=== PATIENT | male | born 1965 | race Caucasian/White ===

== ENCOUNTER 2016-08-11 21:11 | Emergency (ER) | payer SELFPAY ==
[~2016-08-11] VITALS: Ht 165.1 cm; Wt 74.8 kg
[~2016-08-11 21:11] MED LIST: HYDR1TAB8 PO; SULF1TAB35 PO; SULF1TAB38 PO; TAMS0.4C98 PO
[2016-08-11] MEDS ORDERED: IBUPROFEN 800 MG (MOTRIN) TAB PO STA (21:45)
--- NOTE | 2016-08-11 21:46 | ED Upper Extremity ---
General Chief Complaint: Upper Extremity Stated Complaint: RT ARM,WRIST PAIN Nursing Triage Note: PT CO OF R ELBOW PAIN FROM MOVING GLASS DANYELLE. HAS HX OF FX ELBOW Nursing Sepsis Screen: No Definite Risk Source: patient Exam Limitations: no limitations History of Present Illness Time seen by provider: 21:35 Initial Comments 50-year-old male patient presents to the emergency department with complaints of right elbow pain. States this is been going on for the last couple of months. States he has had 9 previous elbow fractures when he was a child. States today he was moving a large piece of glass when the pain increased. Onset: other (onset of the last couple of months. Worse today.) Method of Injury: unknown Modifying Factors: Improves With Immobilization, Worse With Movement Allergies and Home Medications Allergies Coded Allergies: Penicillins (Verified Allergy, Intermediate, HIVES, 02/01/15) Home Medications Naproxen 500 Mg Tablet, 500 MG PO BID, #20 Ref 0 Prescribed by: REAL GREEN on 08/11/162222 Prednisone 20 Mg Tab, 40 MG PO DAILY, #10 Ref 0 Prescribed by: REAL GREEN on 08/11/163 Constitutional: no symptoms reported Musculoskeletal: see HPI, joint pain (right elbow), No joint swelling, No muscle cramps, No muscle twitching, No muscle weakness Skin: No change in color, No lumps Psychiatric/Neurological: Denies Numbness, Denies Paresthesia, Denies Tingling , Denies Weakness All Other Systems Reviewed Negative Unless Noted: Yes (Negative excepted noted.) Past Urzwdqc-Tfafud-Hgprom Hx Patient Social History Alcohol Use: Denies Use Recreational Drug Use: No Recent Foreign Travel: No Contact w/Someone Who Travel: No Recent Infectious Disease Expo: No Recent Hopitalizations: No Surgeries HX Surgeries: Yes (TUMOR REMOVAL TO FACE) Respiratory Hx Respiratory Disorders: No Cardiovascular Hx Cardiac Disorders: No Neurological Hx Neurological Disorders: No Genitourinary Hx Genitourinary Disorders: No Gastrointestinal Hx Gastrointestinal Disorders: No Musculoskeletal Hx Musculoskeletal Disorders: No Endocrine Hx Endocrine Disorders: No HEENT HX ENT Disorders: No Cancer Hx Cancer: No Psychosocial Hx Psychiatric Problems: No Integumentary HX Skin/Integumentary Disorder: No Blood Transfusions Hx Blood Disorders: No Reviewed Nursing Assessment Reviewed/Agree w Nursing PMH: Yes Family Medical History Significant Family History: No Pertinent Family Hx Physical Exam Vital Signs Vital Sign - Last 12Hours 4/18/17 21:25 Temp 99.2 Pulse 75 Resp 18 B/P (MAP) 121/86 Pulse Ox 95 Capillary Refill : Less Than 3 Seconds General Appearance: WD/WN, no apparent distress Cardiovascular: normal peripheral pulses, regular rate, rhythm, no murmur Respiratory: lungs clear, normal breath sounds, no respiratory distress Shoulder: normal inspection, non-tender, no evidence of injury, normal ROM Elbow/Forearm: normal ROM, Right, bone tenderness, pain, soft tissue tenderness (greatest tenderness noted on the lateral epicondyle with minimal swelling.), swelling (right lateral epicondyle) Wrist: Yes normal inspection, Yes non-tender, Yes no evidence of injury, Yes normal ROM Hand: normal inspection, non-tender, no evidence of injury, normal ROM, Right Neurologic/Tendon: normal sensation, normal motor functions, normal tendon functions, responds to pain, no evidence tendon injury Neurologic/Psychiatric: no motor/sensory deficits, alert, normal mood/affect, oriented x 3 Skin: normal color, warm/dry Progress/Results/Core Measures Results/Orders My Orders Orders - REAL GREEN Elbow, Right, 3 Views (08/11/16 21:45) Ibuprofen Tablet (Motrin Tablet) (08/11/16 21:45) Vital Signs/I&O Blood Pressure Mean: 98 Diagnostic Imaging Diagonstic Imaging: Xray Plain Films/CT/US/NM/MRI: elbow Comments Chronic degenerative changes without evidence of acute bony abnormality. Reviewed: Reviewed/Discussed (with Stiven Novak MD) Departure Communication Progress Notes Diagnostic findings discussed with the patient. Proceed with discharge to home with prednisone and naproxen. Impression Impression: Primary Impression: Tendonitis of elbow, left Disposition: 01 HOME, SELF-CARE Condition: Improved Departure-Patient Inst. Decision time for Depature: 22:22 Referrals: [facility] (PCP/Family) Primary Care Physician Patient Instructions: Tendonitis (DC) Add. Discharge Instructions: All discharge instructions reviewed with patient and/or family. Voiced understanding. Medications as instructed. Tylenol Extra Strength [id number] as directed for pain. Elevate the right elbow on pillows. Ice pack or heating pad as needed for pain. Avoid repetitive motions and heavy lifting with the right elbow 5-7 days. Increase activity slowly as tolerated. Follow-up with your family practitioner if no improvement in symptoms in 7-10 days. Return to the emergency department for worsened symptoms or any other concerns. Scripts Naproxen (Naprosyn) 500 Mg Tablet 500 MG PO BID, #20 TAB 0 Refills Prov: REAL GREEN 08/11/16 Prednisone (Prednisone) 20 Mg Tab 40 MG PO DAILY, #10 TAB 0 Refills Prov: REAL GREEN 08/11/16 Work/School Note: Work Release Form Date Seen in the Emergency Department: Aug 11, 2016 Return to Work: Aug 11, 2016 Other Restrictions Listed Below: no heavy lifting or repetitive motions with the right elbow 5-7 days. REAL GREEN Aug 11, 2016 21:46
[2016-08-11] MEDS ORDERED: PRD20T PO (22:23)
[2016-08-11] MEDS ORDERED: NAPR500T PO (22:23)
[2016-08-11 22:31] VITALS: BP 121/86
--- NOTE | 2016-08-12 07:51 | Diagnostic Imaging Report ---
INDICATION: Right elbow pain x1 week. FINDINGS: No fractures are demonstrated. Hypertrophic changes are noted along the radial head as well as along the lateral epicondylar soft tissues. There also appears to be some hypertrophic bony change anteriorly along the olecranon process. No joint effusion demonstrated. 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 Dictated by: Dictated on workstation # [id number]
== END 2016-08-11 22:32 | disposition home or self-care (01) ==
LOC: EDUNIT# 21:11 → ER 21:13
DX: M77.8 Other enthesopathies, not elsewhere classified (principal)
CPT/HCPCS: 73080; 99282

== ENCOUNTER 2017-05-04 12:30 | Emergency (ER) | payer SELFPAY ==
[~2017-05-04] VITALS: Ht 165.1 cm; Wt 74.8 kg
[~2017-05-04 12:30] MED LIST changes: +NAPR-1071 PO; +PRD20T PO
--- NOTE | 2017-05-04 14:33 | ED Cough/URI ---
General Chief Complaint: Cough/Cold/Flu Symptoms Stated Complaint: N/V/D/FEVER Nursing Triage Note: MULTIPLE C/O. STARTED LAST WEDNESDAY.C/O FLU LIKE SXS, WITH DIZZINESS ET H/A. ALSO STATED HE GOT BLOOD ON Q-TIP FROM L-EAR. STATES HE ALSO HAS H/A. HAS BEEN ABLE TO EAT ET DRINK. Source: patient Exam Limitations: no limitations History of Present Illness Time seen by provider: 14:15 Initial Comments Here with report of cough, congestion and left ear pain it's been going on since last Wednesday. 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 Does have moderate nasal congestion and a little bit of a sore throat as well as cough. Main complaint is the left ear at this point. Denies current fevers. Timing/Duration: other (4 days) Severity/Quality: moderate, dry cough Prior Episodes/Possible Cause: occasional episodes Modifying Factors: Worse With Activity Associated Symptoms: cough, earache, fever/chills, muscle aches, nasal congestion, nasal drainage, sore throat Allergies and Home Medications Allergies Coded Allergies: Penicillins (Verified Allergy, Intermediate, HIVES, 02/01/15) Home Medications Naproxen 500 Mg Tablet, 500 MG PO BID, #20 Ref 0 Prescribed by: REAL GREEN on 08/11/162222 Prednisone 20 Mg Tab, 40 MG PO DAILY, #10 Ref 0 Prescribed by: REAL GREEN on 08/11/162222 Constitutional: see HPI, No chills, No fever EENTM: ear pain, nose congestion Respiratory: cough, short of breath Cardiovascular: no symptoms reported Gastrointestinal: no symptoms reported Genitourinary: no symptoms reported Skin: no symptoms reported Past Enezapu-Nmcury-Ovhtvy Hx Patient Social History Alcohol Use: Denies Use Recreational Drug Use: No Smoking Status: Current Everyday Smoker Type Used: Cigarettes Recent Foreign Travel: No Contact w/Someone Who Travel: No Recent Infectious Disease Expo: No Recent Hopitalizations: No Surgeries History of Surgeries: Yes (TUMOR REMOVAL TO FACE) Respiratory History of Respiratory Disorde: No Cardiovascular History of Cardiac Disorders: No Neurological History of Neurological Disord: No Gastrointestinal History of Gastrointestinal Di: No Musculoskeletal History of Musculoskeletal Dis: No Endocrine History of Endocrine Disorders: No Cancer History of Cancer: No Psychosocial History of Psychiatric Problem: No Integumentary History of Skin or Integumenta: No Blood Transfusions History of Blood Disorders: No Reviewed Nursing Assessment Reviewed/Agree w Nursing PMH: Yes Family Medical History Significant Family History: No Pertinent Family Hx Physical Exam Vital Signs Vital Sign - Last 12Hours 05/04/17 13:18 Temp 98.9 Pulse 87 Resp 18 B/P (MAP) 108/78 (88) Capillary Refill : Less Than 3 Seconds General Appearance: WD/WN, no apparent distress HEENT: PERRL/EOMI, pharyngeal erythema, other (bilateral TMs bulging without purulence. Moderate nasal congestion bilateral with moderate rhinorrhea and moderate erythema.) Neck: full range of motion, supple Respiratory: lungs clear, normal breath sounds Cardiovascular: regular rate, rhythm, no murmur Gastrointestinal: non tender, soft Neurologic/Psychiatric: alert, oriented x 3 Skin: normal color, warm/dry Progress/Results/Core Measures Suspected Sepsis Recent Fever Within 48 Hours: Yes Infection Criteria Present: Suspected New Infection New/Unexplained Altered Menta: No Sepsis Screen: No Definite Risk Sepsis Diagnosis: SIRS Temperature:98.9 Pulse: 87 Respiratory Rate: 18 Blood Pressure 108 /78 Mean: 88 Results/Orders Vital Signs/I&O Vital Sign - Last 12Hours 05/04/17 13:18 Temp 98.9 Pulse 87 Resp 18 B/P (MAP) 108/78 (88) Capillary Refill : Less Than 3 Seconds Blood Pressure Mean: 88 Progress Note : Progress Note Seen and evaluated. Likely influenza. Patient is outside of Tamiflu window. Also has reactive airway and would probably benefit from steroids. Discharged home with return precautions. Patient verbalize understanding instructions and agreement with plan. He has declined injectable steroids here. Departure Impression Impression: Primary Impression: Influenza-like symptoms Disposition: 01 HOME, SELF-CARE Condition: Stable Departure-Patient Inst. Decision time for Depature: 14:32 Referrals: NO,LOCAL PHYSICIAN (PCP/Family) Primary Care Physician Patient Instructions: Flu, Adult (DC), Viral Upper Respiratory Infection, Adult (DC) Add. Discharge Instructions: All discharge instructions reviewed with patient and/or family. Voiced understanding. You may take Aleve 2 tablets twice daily for the next several days and then as needed. You may take Tylenol 1000 mg every 8 hours as needed for pain. You should use Afrin nasal spray or the generic, 12 hour relief, 2 sprays to each nostril twice daily for 3 days only and then stop. Do not use more than 3 days. Take other medications as directed. Return for worse pain, fever, vomiting, weakness, breathing problems or other concerns as needed. You should drink plenty of fluids and get plenty of rest. Follow up with your Dr. in a few days for recheck. Scripts Prednisone (Prednisone) 20 Mg Tab 40 MG PO DAILY, #6 TAB 0 Refills Prov: FREDY MONTIEL MD 05/04/17 FREDY MONTIEL MD May 04, 2017 14:33
[2017-05-04] MEDS ORDERED: PRD20T PO (14:34)
[2017-05-04 14:42] VITALS: BP 108/78
--- OUTSIDE RECORDS SUMMARY | 2017-05-05 10:29 | XMS REPORT | Continuity of Care Document ---
Author Author [facility] Organization [facility] Address Unknown Phone Unavailable Allergies Active Description Code Type Severity Reaction Onset Reported/Identified Relationship to Patient Clinical Status Yes No Known Drug Allergies [id number] Drug Allergy Unknown N/A 02/04/2011 Yes Penicillins [id number] Drug Allergy Moderate HIVES 02/01/2015 Medications There is no data. Problems Date Dx Coded Attending Type Code Diagnosis Diagnosed By 02/04/2011 Ot 682.3 02/04/2011 Ot 709.9 01/31/2015 VIDAL CHANCE DO Ot N20.1 01/31/2015 VIDAL CHANCE DO Ot R10.32 08/12/2016 REAL ARCE Ot M77.8 OTHER ENTHESOPATHIES, NOT ELSEWHERE CLAS 08/12/2016 REAL ARCE Ot M79.631 PAIN IN RIGHT FOREARM 08/12/2016 REAL ARCE Ot M77.8 OTHER ENTHESOPATHIES, NOT ELSEWHERE CLAS 08/12/2016 REAL ARCE Ot M79.631 PAIN IN RIGHT FOREARM 09/26/2016 REAL ARCE Ot M77.8 OTHER ENTHESOPATHIES, NOT ELSEWHERE CLAS 09/26/2016 REAL ARCE Ot M79.631 PAIN IN RIGHT FOREARM Procedures There is no data. Results There is no data. Encounters ACCT No. Visit Date/Time Discharge Status Pt. Type Provider Facility Loc./Unit Complaint [id number] 08/11/2016 21:13:00 08/11/2016 22:32:00 DIS Outpatient REAL ARCE [facility] ER RT ARM,WRIST PAIN [id number] 01/31/2015 21:54:00 01/31/2015 23:52:00 DIS Emergency VIDAL CHANCE DO [facility] ER [id number] 02/04/2011 21:21:00 Document Registration
== END 2017-05-04 14:42 | disposition home or self-care (01) ==
LOC: EDUNIT# 12:30 → ER 12:33
DX: J11.1 Influenza due to unidentified influenza virus with other respiratory manifestations (principal); F17.210 Nicotine dependence, cigarettes, uncomplicated
CPT/HCPCS: 99282

== ENCOUNTER 2018-08-10 11:42 | Emergency (ER) | payer SELFPAY ==
[~2018-08-10] VITALS: Ht 167.6 cm; Wt 74.8 kg
--- NOTE | 2018-08-10 11:55 | ED Back Pain ---
General Chief Complaint: Back Problems Stated Complaint: BACK PAIN Source of Information: Patient Exam Limitations: No Limitations History of Present Illness Date Seen by Provider: Aug 10, 2018 Time Seen by Provider: 11:52 Initial Comments Ambulatory to the emergency room with reports of midline low back pain worse than usual and tingling down both of his legs. No loss of bowel or bladder control, no fevers or chills, no loss of sensation of his genitals. He has a history of some chronic back pain and normally goes to [facility]. However , he fell off of his porch yesterday landing directly on his buttocks. Since then he's had this worsening pain and tingling. He also has some new tingling in both of his hands the fall yesterday but denies hitting his head and denies any neck pain. Location: Lumbar Spine, Paraspinous Muscles Timing/Duration: 24 Hours Severity: Moderate Pain/Injury Location: Back Radiation: Upper Legs Method of Injury: Fall (chronic pain exacerbated by fall yesterday) Modifying Factors: Improves With Movement Associated Symptoms: No denies symptoms, No muscle spasms, No numbness in legs/ feet; tingling in legs/feet; No sensory/motor loss; lower back pain; No loss of bladder control, No loss of bowel control Allergies and Home Medications Allergies Coded Allergies: Penicillins (Verified Allergy, Intermediate, HIVES, 02/01/15) Home Medications Naproxen 500 Mg Tablet, 500 MG PO BID Prescribed by: REAL GREEN on 08/11/162222 Prednisone 20 Mg Tab, 40 MG PO DAILY Prescribed by: REAL GREEN on 08/11/162222 Prednisone 20 Mg Tab, 40 MG PO DAILY Prescribed by: FREDY MNOTIEL on 05/04/17 1434 Patient Home Medication List Home Medication List Reviewed: Yes Review of Systems Constitutional: see HPI EENTM: see HPI Respiratory: no symptoms reported Cardiovascular: no symptoms reported Genitourinary: no symptoms reported Musculoskeletal: see HPI, back pain Skin: no symptoms reported Psychiatric/Neurological: No Symptoms Reported Past Jpciswh-Vvowsp-Famxod Hx Patient Social History Type Used: Cigarettes Recent Foreign Travel: No Contact w/Someone Who Travel: No Recent Hopitalizations: No Past Medical History Surgeries: Yes (TUMOR REMOVAL TO FACE) Respiratory: No Cardiac: No Neurological: No Gastrointestinal: No Musculoskeletal: No Endocrine: No Cancer: No Psychosocial: No Integumentary: No Blood Disorders: No Family Medical History No Pertinent Family Hx Physical Exam Vital Signs Vital Signs - First Documented 08/10/18 11:46 Temp 97.8 Pulse 88 Resp 18 B/P (MAP) 124/92 (103) Pulse Ox 99 Capillary Refill : Height, Weight, BMI Height: 5'5.00" Weight: 165lbs. oz. 74.117942sg; 28.24 BMI Method:Stated General Appearance: No Apparent Distress, WD/WN, Chronically ill Respiratory: No Accessory Muscle Use, No Respiratory Distress Gastrointestinal: Non Tender, Soft Extremity: Normal Capillary Refill, Normal Inspection Neurologic/Psychiatric: Alert, Oriented x3 Skin: Normal Color, Warm/Dry Progress/Results/Core Measures Results/Orders My Orders Orders - BRIDGET FALLON APRN Ct Cervical Spine Wo (08/10/18 11:51) Ct Lumbar Spine Wo (08/10/18 11:51) Ketorolac Injection (Toradol Injection) (08/10/18 12:00) Orphenadrine Injection (Norflex Injectio (08/10/18 12:00) Hydrocodone/Apap 5/325 Tablet (Lortab 5 (08/10/18 12:00) Medications Given in ED Current Medications Medications Dose Ordered Sig/Thai Route Start Time Stop Time Status Last Admin Dose Admin Acetaminophen/ Hydrocodone Bitart 1 tab ONCE ONCE PO 08/10/18 12:00 08/10/18 12:01 DC 08/10/18 12:03 1 TAB Ketorolac Tromethamine 60 mg ONCE ONCE IM 08/10/18 12:00 08/10/18 12:01 DC 08/10/18 12:02 60 MG Vital Signs/I&O 08/10/18 11:46 Temp 97.8 Pulse 88 Resp 18 B/P (MAP) 124/92 (103) Pulse Ox 99 Departure Impression Primary Impression: Acute exacerbation of chronic low back pain Disposition: 01 HOME, SELF-CARE Condition: Stable Departure-Patient Inst. Decision time for Depature: 13:33 Referrals: NO,LOCAL PHYSICIAN (PCP/Family) Primary Care Physician Patient Instructions: Low Back Pain in Adults Add. Discharge Instructions: 1. Follow-up with your regular doctor to discuss an MRI and further evaluation of your symptoms. Call and make an appointment next week. Take the medication as directed. Return to ER for any concerns. All discharge instructions reviewed with patient and/or family. Voiced understanding. Scripts Methocarbamol (Robaxin-750) 750 Mg Tablet 750 MG PO Q4H PRN for PAIN-MODERATE, #20 TAB Prov: BRIDGET FALLON APRN 08/10/18 Prednisone (Prednisone) 20 Mg Tab 40 MG PO DAILY, #8 TAB Prov: BRIDGET FALLON APRN 08/10/18 BRIDGET FALLON APRN Aug 10, 2018 11:55
[2018-08-10] MEDS ORDERED: KETOROLAC 60 MG/2 ML VIAL IM ONE (12:00)
[2018-08-10] MEDS ORDERED: ORPHENADRINE 60 MG/2 ML (NORFLEX) AMP IM ONE (12:00)
[2018-08-10] MEDS ORDERED: HYDROcodone/APAP 5 MG/325 MG (LORTAB) TAB PO ONE (12:00)
--- NOTE | 2018-08-10 13:23 | Diagnostic Imaging Report ---
PROCEDURE: CT cervical spine without contrast. TECHNIQUE: Multiple contiguous axial images were obtained through the cervical spine without the use of intravenous contrast. Sagittal and coronal reformations were then performed. Auto Exposure Controls were utilized during the CT exam to meet ALARA standards for radiation dose reduction. INDICATION: Fall and neck pain. FINDINGS: Curvature and alignment of the cervical spine is normal. No fracture or subluxation is seen. Prevertebral tissues are within normal limits. Odontoid is intact. There is generalized cervical spondylosis with variable disc space narrowing and marginal spurring. IMPRESSION: Cervical spondylosis. No acute bony abnormality is detected. Dictated by: Dictated on workstation # [id number]
--- NOTE | 2018-08-10 13:31 | Diagnostic Imaging Report ---
PROCEDURE: CT lumbar spine without contrast. TECHNIQUE: Multiple contiguous axial images were obtained through the lumbar spine without the use of intravenous contrast. Sagittal and coronal reformations were then performed. Auto Exposure Controls were utilized during the CT exam to meet ALARA standards for radiation dose reduction. INDICATION: Fall and low back pain. FINDINGS: The curvature and alignment of the lumbar spine are normal. The vertebral body heights are maintained. No acute compression fracture is detected. There is multilevel degenerative disc disease with variable disc space narrowing and marginal spurring. The paraspinous tissues are unremarkable. IMPRESSION: Lumbar spondylosis. No acute bony abnormality is detected. Dictated by: Dictated on workstation # [id number]
[2018-08-10] MEDS ORDERED: PRD20T PO (13:34)
[2018-08-10] MEDS ORDERED: METH-313 PO (13:34)
[2018-08-10 13:42] VITALS: BP 124/92
== END 2018-08-10 13:46 | disposition home or self-care (01) ==
LOC: EDUNIT# 11:42 → ER 11:43
DX: M54.5 Low back pain (principal); G89.29 Other chronic pain; Z88.0 Allergy status to penicillin; Z79.52 Long term (current) use of systemic steroids; W13.8XXA Fall from, out of or through other building or structure, initial encounter
CPT/HCPCS: 72125; 72131

== ENCOUNTER → 2018-11-01 | Outpatient (CLI) | payer OTHER ==
[~2018-11-01] MED LIST changes: +HOLD METFORMIN - RECEIVED CONTRAST 20 ML VIAL IV SCH; +IOHEXOL 350 MG/ML 100 ML (OMNIPAQUE 350) VIAL IV ONE; +METH-313 PO; +NS 100 ML (IVPB) BAG IV ONE
--- NOTE | 2018-11-01 12:09 | Diagnostic Imaging Report ---
PROCEDURE: CT abdomen with contrast only. TECHNIQUE: Multiple contiguous axial images were obtained through the abdomen after the administration of intravenous contrast. Auto Exposure Controls were utilized during the CT exam to meet ALARA standards for radiation dose reduction. INDICATION: Jaundice. COMPARISON: Comparison is to 01/31/2015. FINDINGS: Limited views of the lower thorax are normal. There is moderate to severe intrahepatic biliary ductal dilation. In addition, the common duct is significantly dilated. The point of transition is in the distal common bile duct. At the point of transition there is a 1.8 x 2.0 cm hypoattenuating focus on the pancreatic head (series 2, image 36 and series 601, image 24). There is no significant pancreatic atrophy or dilation of the pancreatic duct. Although the main pancreatic duct is mildly prominent and the neck of the pancreas. This lesion is contained within the pancreatic head and does not involve the celiac artery, superior mesenteric artery, hepatic arteries or aorta. There is no peripancreatic lymphadenopathy. Spleen and adrenal glands are normal. Kidneys enhance symmetrically without focal lesion. No hydronephrosis. No dilated loops of bowel are seen. There are no suspicious osseous lesions. IMPRESSION: 1. Hypoattenuating lesion in the head of the pancreas with obstruction of the distal common bile duct. This is highly concerning for a pancreatic adenocarcinoma. 2. No evidence for metastatic disease in the abdomen. Dictated by: Dictated on workstation # [id number]
== END ==
LOC: RAD 08:27
PROVIDERS: ATTEND Pediatrics
DX: K83.1 Obstruction of bile duct (principal); K86.89 Other specified diseases of pancreas
CPT/HCPCS: 74160

== ENCOUNTER 2019-02-01 09:17 | Outpatient (RCR) | payer OTHER ==
[2019-01-23 11:04] LABS: BASOPHILS # (AUTO) 0.1 10^3/uL (0.0-0.1); BASOPHILS % (AUTO) 1 % (0-10); EOSINOPHILS # (AUTO) 0.3 10^3/uL (0.0-0.3); EOSINOPHILS % (AUTO) 3 % (0-10); HEMATOCRIT 43 % (40-54); HEMOGLOBIN 13.3 G/DL (13.3-17.7); LYMPHOCYTES # (AUTO) 1.6 X 10^3 (1.0-4.0); LYMPHOCYTES % (AUTO) 15 % (12-44); MEAN CORPUSCULAR HEMOGLOBIN 27 PG (25-34); MEAN CORPUSCULAR HGB CONC 31 G/DL (32-36); MEAN CORPUSCULAR VOLUME 89 FL (80-99); MEAN PLATELET VOLUME 10.4 FL (7.4-10.4); MONOCYTES # (AUTO) 0.7 X 10^3 (0.0-1.0); MONOCYTES % (AUTO) 6 % (0-12); NEUTROPHILS # (AUTO) 8.1 X 10^3 (1.8-7.8); NEUTROPHILS % (AUTO) 76 % (42-75); PLATELET COUNT 272 10^3/uL (130-400); WHITE BLOOD COUNT 10.7 10^3/uL (4.3-11.0)
[2019-01-23 11:27] LABS: ALANINE AMINOTRANSFERASE 30 U/L (0-55); ALKALINE PHOSPHATASE 97 U/L (40-136); BILIRUBIN,TOTAL 0.3 MG/DL (0.1-1.0); BUN/CREATININE RATIO 20; CALCIUM 9.5 MG/DL (8.5-10.1); CARBON DIOXIDE 23 MMOL/L (21-32); CHLORIDE 109 MMOL/L (98-107); CREATININE SERUM 0.83 MG/DL (0.60-1.30); GFR ESTIMATED > 60; GLUCOSE 84 MG/DL (70-105); POTASSIUM 4.3 MMOL/L (3.6-5.0); SODIUM 140 MMOL/L (135-145)
[~2019-02-01] VITALS: Ht 162.6 cm; Wt 75.7 kg
[~2019-02-01 09:17] MED LIST changes: +CTR IV SCH; +GEMCITABINE HCL IV SCH; -HOLD METFORMIN - RECEIVED CONTRAST 20 ML VIAL IV SCH; -IOHEXOL 350 MG/ML 100 ML (OMNIPAQUE 350) VIAL IV ONE; -NS 100 ML (IVPB) BAG IV ONE; +NS IV 1000 ML (CANCER CTR) IV SCH; +NS IV SCH; +ONDANSETRON MDV (CANCER CENTER 8 MG, DEXAMETHASONE INJECTION 10 MG in NS (IVPB) CANCER ... IV SCH; +PACLITAXEL PROTEIN IV SCH
[2019-02-01 09:33] LABS: BASOPHILS % (AUTO) 1 % (0-10); EOSINOPHILS # (AUTO) 0.1 10^3/uL (0.0-0.3); EOSINOPHILS % (AUTO) 2 % (0-10); HEMATOCRIT 39 % (40-54); HEMOGLOBIN 12.1 G/DL (13.3-17.7); LYMPHOCYTES # (AUTO) 1.2 X 10^3 (1.0-4.0); LYMPHOCYTES % (AUTO) 27 % (12-44); MEAN CORPUSCULAR HEMOGLOBIN 28 PG (25-34); MEAN CORPUSCULAR HGB CONC 31 G/DL (32-36); MEAN CORPUSCULAR VOLUME 88 FL (80-99); MONOCYTES # (AUTO) 0.3 X 10^3 (0.0-1.0); MONOCYTES % (AUTO) 6 % (0-12); NEUTROPHILS # (AUTO) 2.9 X 10^3 (1.8-7.8); NEUTROPHILS % (AUTO) 65 % (42-75); PLATELET COUNT 190 10^3/uL (130-400); RED CELL DISTRIBUTION WIDTH 16.5 % (10.0-14.5); WHITE BLOOD COUNT 4.4 10^3/uL (4.3-11.0)
[2019-02-01 10:01] LABS: BUN/CREATININE RATIO 19; CALCIUM 8.9 MG/DL (8.5-10.1); CARBON DIOXIDE 25 MMOL/L (21-32); CHLORIDE 104 MMOL/L (98-107); CREATININE SERUM 0.81 MG/DL (0.60-1.30); GFR ESTIMATED > 60; GLUCOSE 109 MG/DL (70-105); POTASSIUM 3.9 MMOL/L (3.6-5.0); SODIUM 138 MMOL/L (135-145)
== END 2019-02-07 | disposition home or self-care (01) ==
LOC: ONC 09:17
PROVIDERS: ATTEND Internal Medicine Hematology & Oncology
DX: Z51.11 Encounter for antineoplastic chemotherapy (principal); K86.9 Disease of pancreas, unspecified; K83.1 Obstruction of bile duct; Z80.3 Family history of malignant neoplasm of breast; Z80.7 Family history of other malignant neoplasms of lymphoid, hematopoietic and related tissues
CPT/HCPCS: 36591; 80048; 80053; 85025; 86301; 96375; 96413; 96417; 99213; 99214

== ENCOUNTER 2019-03-01 09:36 | Outpatient (RCR) | payer MEDICAID, OTHER ==
[2019-02-08 10:03] LABS: BASOPHILS % (AUTO) 0 % (0-10); EOSINOPHILS # (AUTO) 0.1 10^3/uL (0.0-0.3); EOSINOPHILS % (AUTO) 1 % (0-10); HEMATOCRIT 37 % (40-54); HEMOGLOBIN 11.7 G/DL (13.3-17.7); LYMPHOCYTES # (AUTO) 1.2 X 10^3 (1.0-4.0); LYMPHOCYTES % (AUTO) 27 % (12-44); MEAN CORPUSCULAR HEMOGLOBIN 27 PG (25-34); MEAN CORPUSCULAR HGB CONC 32 G/DL (32-36); MEAN CORPUSCULAR VOLUME 86 FL (80-99); MEAN PLATELET VOLUME 9.1 FL (7.4-10.4); MONOCYTES # (AUTO) 0.3 X 10^3 (0.0-1.0); MONOCYTES % (AUTO) 7 % (0-12); NEUTROPHILS # (AUTO) 2.8 X 10^3 (1.8-7.8); NEUTROPHILS % (AUTO) 65 % (42-75); PLATELET COUNT 129 10^3/uL (130-400); RED CELL DISTRIBUTION WIDTH 17.1 % (10.0-14.5); WHITE BLOOD COUNT 4.3 10^3/uL (4.3-11.0)
[2019-02-08 10:32] LABS: BUN/CREATININE RATIO 24; CARBON DIOXIDE 23 MMOL/L (21-32); CHLORIDE 106 MMOL/L (98-107); GFR ESTIMATED > 60; GLUCOSE 93 MG/DL (70-105); POTASSIUM 4.3 MMOL/L (3.6-5.0); SODIUM 136 MMOL/L (135-145)
[2019-02-15 10:01] LABS: BASOPHILS % (AUTO) 0 % (0-10); EOSINOPHILS # (AUTO) 0.1 10^3/uL (0.0-0.3); EOSINOPHILS % (AUTO) 2 % (0-10); HEMATOCRIT 37 % (40-54); HEMOGLOBIN 11.7 G/DL (13.3-17.7); LYMPHOCYTES # (AUTO) 0.9 X 10^3 (1.0-4.0); LYMPHOCYTES % (AUTO) 21 % (12-44); MEAN CORPUSCULAR HEMOGLOBIN 28 PG (25-34); MEAN CORPUSCULAR HGB CONC 32 G/DL (32-36); MEAN CORPUSCULAR VOLUME 89 FL (80-99); MEAN PLATELET VOLUME 9.1 FL (7.4-10.4); MONOCYTES # (AUTO) 0.5 X 10^3 (0.0-1.0); MONOCYTES % (AUTO) 13 % (0-12); NEUTROPHILS # (AUTO) 2.8 X 10^3 (1.8-7.8); NEUTROPHILS % (AUTO) 64 % (42-75); PLATELET COUNT 205 10^3/uL (130-400); RED CELL DISTRIBUTION WIDTH 18.9 % (10.0-14.5); WHITE BLOOD COUNT 4.3 10^3/uL (4.3-11.0)
[2019-02-15 10:21] LABS: BUN/CREATININE RATIO 22; CALCIUM 9.2 MG/DL (8.5-10.1); CARBON DIOXIDE 26 MMOL/L (21-32); CHLORIDE 106 MMOL/L (98-107); CREATININE SERUM 0.86 MG/DL (0.60-1.30); GFR ESTIMATED > 60; GLUCOSE 88 MG/DL (70-105); POTASSIUM 4.2 MMOL/L (3.6-5.0); SODIUM 138 MMOL/L (135-145)
[2019-02-22 09:37] LABS: BASOPHILS # (AUTO) 0.1 10^3/uL (0.0-0.1); BASOPHILS % (AUTO) 1 % (0-10); EOSINOPHILS # (AUTO) 0.5 10^3/uL (0.0-0.3); EOSINOPHILS % (AUTO) 4 % (0-10); HEMATOCRIT 38 % (40-54); HEMOGLOBIN 11.7 G/DL (13.3-17.7); LYMPHOCYTES # (AUTO) 1.7 X 10^3 (1.0-4.0); LYMPHOCYTES % (AUTO) 14 % (12-44); MEAN CORPUSCULAR HEMOGLOBIN 27 PG (25-34); MEAN CORPUSCULAR HGB CONC 31 G/DL (32-36); MEAN CORPUSCULAR VOLUME 88 FL (80-99); MEAN PLATELET VOLUME 9.4 FL (7.4-10.4); MONOCYTES # (AUTO) 1.3 X 10^3 (0.0-1.0); MONOCYTES % (AUTO) 10 % (0-12); NEUTROPHILS # (AUTO) 8.7 X 10^3 (1.8-7.8); NEUTROPHILS % (AUTO) 71 % (42-75); PLATELET COUNT 455 10^3/uL (130-400); RED CELL DISTRIBUTION WIDTH 19.9 % (10.0-14.5); WHITE BLOOD COUNT 12.3 10^3/uL (4.3-11.0)
[2019-02-22 09:54] LABS: BUN/CREATININE RATIO 17; CARBON DIOXIDE 24 MMOL/L (21-32); CHLORIDE 107 MMOL/L (98-107); CREATININE SERUM 0.83 MG/DL (0.60-1.30); POTASSIUM 4.2 MMOL/L (3.6-5.0); SODIUM 140 MMOL/L (135-145)
[2019-02-22 09:55] LABS: ALANINE AMINOTRANSFERASE 47 U/L (0-55); ALBUMIN 3.8 GM/DL (3.2-4.5); ALKALINE PHOSPHATASE 164 U/L (40-136); BILIRUBIN,TOTAL 0.2 MG/DL (0.1-1.0); CALCIUM 9.4 MG/DL (8.5-10.1); GFR ESTIMATED > 60; GLUCOSE 103 MG/DL (70-105); TOTAL PROTEIN 7.2 GM/DL (6.4-8.2)
[2019-03-01 09:57] LABS: BASOPHILS # (AUTO) 0.1 10^3/uL (0.0-0.1); BASOPHILS % (AUTO) 1 % (0-10); EOSINOPHILS # (AUTO) 0.1 10^3/uL (0.0-0.3); EOSINOPHILS % (AUTO) 2 % (0-10); HEMATOCRIT 34 % (40-54); HEMOGLOBIN 10.6 G/DL (13.3-17.7); LYMPHOCYTES # (AUTO) 1.4 X 10^3 (1.0-4.0); LYMPHOCYTES % (AUTO) 16 % (12-44); MEAN CORPUSCULAR HEMOGLOBIN 27 PG (25-34); MEAN CORPUSCULAR HGB CONC 31 G/DL (32-36); MEAN CORPUSCULAR VOLUME 88 FL (80-99); MEAN PLATELET VOLUME 9.3 FL (7.4-10.4); MONOCYTES # (AUTO) 1.1 X 10^3 (0.0-1.0); MONOCYTES % (AUTO) 12 % (0-12); NEUTROPHILS # (AUTO) 6.4 X 10^3 (1.8-7.8); NEUTROPHILS % (AUTO) 70 % (42-75); PLATELET COUNT 372 10^3/uL (130-400); RED CELL DISTRIBUTION WIDTH 20.4 % (10.0-14.5); WHITE BLOOD COUNT 9.2 10^3/uL (4.3-11.0)
[2019-03-01 10:12] LABS: BUN/CREATININE RATIO 22; CARBON DIOXIDE 25 MMOL/L (21-32); CHLORIDE 108 MMOL/L (98-107); CREATININE SERUM 0.77 MG/DL (0.60-1.30); GFR ESTIMATED > 60; GLUCOSE 99 MG/DL (70-105); POTASSIUM 4.3 MMOL/L (3.6-5.0); SODIUM 140 MMOL/L (135-145)
[2019-03-06] MEDS ORDERED: PANT40TA3 PO (20:36)
[2019-03-07] MEDS ORDERED: IBUP-30 PO (09:31)
[2019-03-07] MEDS ORDERED: CALC300T4 PO (09:31)
[2019-03-08] MEDS ORDERED: ACHD5005 PO (11:04)
[2019-03-08] MEDS ORDERED: POLY17PO6 PO (11:04)
[2019-03-08] MEDS ORDERED: GUAI600T43 PO (11:04)
[2019-03-08] MEDS ORDERED: PROM25TA14 PO (11:04)
== END 2019-04-06 10:03 | disposition home or self-care (01) ==
LOC: ONC 09:36
PROVIDERS: ATTEND Internal Medicine Hematology & Oncology
DX: Z51.11 Encounter for antineoplastic chemotherapy (principal); C25.0 Malignant neoplasm of head of pancreas; C78.7 Secondary malignant neoplasm of liver and intrahepatic bile duct; Z98.890 Other specified postprocedural states
CPT/HCPCS: 36415; 36591; 80048; 80053; 85025; 96375; 96413; 96417

== ENCOUNTER 2019-03-06 20:21 | Observation (INO) | payer OTHER ==
[~2019-03-06] VITALS: Ht 162.6 cm; Wt 72.0 kg
[~2019-03-06 20:21] MED LIST changes: -CTR IV SCH; -GEMCITABINE HCL IV SCH; -NS IV 1000 ML (CANCER CTR) IV SCH; -NS IV SCH; -ONDANSETRON MDV (CANCER CENTER 8 MG, DEXAMETHASONE INJECTION 10 MG in NS (IVPB) CANCER ... IV SCH; -PACLITAXEL PROTEIN IV SCH
[2019-03-06] MEDS ORDERED: NS IV 1000 ML 1,000 ML IV SCH (20:31)
[2019-03-06] MEDS ORDERED: PANT40TA3 PO (20:36)
[2019-03-06] MEDS ORDERED: fentaNYL INJECTION 100 MCG/2 ML AMP IVP ONE (20:45)
[2019-03-06] MEDS ORDERED: HOLD METFORMIN - RECEIVED CONTRAST 20 ML VIAL IV SCH (20:45)
[2019-03-06] MEDS ORDERED: NS 100 ML (IVPB) BAG IV ONE (20:45)
[2019-03-06] MEDS ORDERED: IOHEXOL 350 MG/ML 100 ML (OMNIPAQUE 350) VIAL IV ONE (20:45)
[2019-03-06] MEDS ORDERED: ONDANSETRON 4 MG/2 ML (SDV) Z0FRAN IVP ONE (20:45)
--- NOTE | 2019-03-06 20:45 | NUR ---
pt unsure if port would draw, consented to peripheral iv start.
--- NOTE | 2019-03-06 20:48 | ED Abdominal Pain ---
General Chief Complaint: Abdominal/GI Problems Stated Complaint: ABD PAIN,DIZZY, BACK PAIN Nursing Triage Note: RIGHT SIDED ABDOMINAL PAIN Sepsis Screen: No Definite Risk Source of Information: Patient, Family Exam Limitations: No Limitations History of Present Illness Date Seen by Provider: Mar 06, 2019 Time Seen by Provider: 20:30 Initial Comments The patient resents to ER by private conveyance with chief complaint last 3 days progressively worsening right sided upper abdomen pain that is sharp throbbing/pulsating. He is having some nausea but usually taken care of by and Zofran and his been using ibuprofen for his pain up until now. He has a history of pancreatic cancer with extension of the liver. He has had a stent placed in his pancreatic duct at [facility] and again at [facility] in [place]. He follows with Dr. Hardy and primary care with Fabiano Elliott, [facility]. He does not take opiates for pain. He does have a history of kidney stones many years ago but he says this pain is different and is not having any dysuria but he does have very dark orange urine. He is had no fevers but has felt subjective chills. He called the cancer center and they told him if this pain got worse to come to the ER because they suspected that his stent might be malfunctioning. Allergies and Home Medications Allergies Coded Allergies: Penicillins (Verified Allergy, Intermediate, HIVES, 02/01/15) Patient Home Medication List Home Medication List Reviewed: Yes Review of Systems Review of Systems Constitutional: No chills, No fever EENTM: No Blurred Vision, No Double Vision Respiratory: Denies Cough, Denies Shortness of Air Cardiovascular: Denies Chest Pain, Denies Edema Gastrointestinal: See HPI; Denies Abdomen Distended; Abdominal Pain, Constipated; Denies Diarrhea; Nausea; Denies Vomiting Genitourinary: Denies Burning, Denies Discharge Musculoskeletal: No back pain, No joint pain Skin: No pruritus, No rash Psychiatric/Neurological: Denies Headache, Denies Numbness All Other Systems Reviewed Negative Unless Noted: Yes Past Baprbgc-Agriub-Rltxvj Hx Patient Social History Alcohol Use: Denies Use Recreational Drug Use: No Drug of Choice: CANNIBUS Smoking Status: Former Smoker Type Used: Cigarettes Recent Foreign Travel: No Contact w/Someone Who Travel: No Recent Infectious Disease Expo: No Recent Hopitalizations: No Physical Abuse: No Sexual Abuse: No Mistreated: No Fear: No Immunizations Up To Date Tetanus Booster (TDap): Unknown Seasonal Allergies Seasonal Allergies: No Past Medical History Surgeries: Yes (TUMOR REMOVAL TO FACE, PANCREATIC STENT) Respiratory: No Cardiac: No Neurological: No Genitourinary: No Gastrointestinal: No Musculoskeletal: No Endocrine: No HEENT: No Cancer: Yes Liver, Pancreatic Did You Recieve Any Treatments: Yes What Type of Treatment Did You: Chemotherapy Psychosocial: No Integumentary: No Blood Disorders: No Family Medical History No Pertinent Family Hx Physical Exam Vital Signs Vital Signs - First Documented 03/06/19 20:27 Temp 36.5 Pulse 86 Resp 18 B/P (MAP) 130/81 (97) Pulse Ox 99 O2 Delivery Room Air Capillary Refill : Less Than 3 Seconds Height/Weight/BMI Height: 5'6.00" Weight: 165lbs. oz. 74.350400lp; 28.00 BMI Method:Stated General Appearance: WD/WN, mild distress HEENT: PERRL/EOMI, normal ENT inspection, pharynx normal Neck: full range of motion, normal inspection Respiratory: normal breath sounds, no respiratory distress, no accessory muscle use Cardiovascular: normal peripheral pulses, regular rate, rhythm; No tachycardia Peripheral Pulses: 2+ Radial Pulses (R), 2+ Radial Pulses (L) Gastrointestinal: abnormal bowel sounds (active all 4 quadrants), guarding, tenderness (exquisitely tender right upper quadrant and epigastric region to light touch) Extremities: normal inspection, normal capillary refill Neurologic/Psychiatric: alert, oriented x 3 Progress/Results/Core Measures Results/Orders Lab Results Laboratory Tests Test 03/06/19 20:30 Range/Units White Blood Count 5.8 4.3-11.0 10^3/uL Red Blood Count 3.97 L 4.35-5.85 10^6/uL Hemoglobin 10.8 L 13.3-17.7 G/DL Hematocrit 34 L 40-54 % Mean Corpuscular Volume 85 80-99 FL Mean Corpuscular Hemoglobin 27 25-34 PG Mean Corpuscular Hemoglobin Concent 32 32-36 G/DL Red Cell Distribution Width 21.0 H 10.0-14.5 % Platelet Count 248 130-400 10^3/uL Mean Platelet Volume 9.1 7.4-10.4 FL Neutrophils (%) (Auto) 76 H 42-75 % Lymphocytes (%) (Auto) 17 12-44 % Monocytes (%) (Auto) 4 0-12 % Eosinophils (%) (Auto) 3 0-10 % Basophils (%) (Auto) 0 0-10 % Neutrophils # (Auto) 4.4 1.8-7.8 X 10^3 Lymphocytes # (Auto) 1.0 1.0-4.0 X 10^3 Monocytes # (Auto) 0.2 0.0-1.0 X 10^3 Eosinophils # (Auto) 0.2 0.0-0.3 10^3/uL Basophils # (Auto) 0.0 0.0-0.1 10^3/uL Urine Color DARK YELLOW Urine Clarity CLEAR Urine pH 6.0 5-9 Urine Specific [place] 1.025 H 1.016-1.022 Urine Protein NEGATIVE NEGATIVE Urine Glucose (UA) NEGATIVE NEGATIVE Urine Ketones NEGATIVE NEGATIVE Urine Nitrite NEGATIVE NEGATIVE Urine Bilirubin 1+ H NEGATIVE Urine Urobilinogen 1.0 < = 1.0 MG/DL Urine Leukocyte Esterase NEGATIVE NEGATIVE Urine RBC (Auto) NEGATIVE NEGATIVE Urine RBC RARE /HPF Urine WBC RARE /HPF Urine Squamous Epithelial Cells RARE /HPF Urine Crystals NONE /LPF Urine Bacteria NEGATIVE /HPF Urine Casts NONE /LPF Urine Mucus SMALL H /LPF Urine Culture Indicated NO Sodium Level 137 135-145 MMOL/L Potassium Level 3.7 3.6-5.0 MMOL/L Chloride Level 103 98-107 MMOL/L Carbon Dioxide Level 20 L 21-32 MMOL/L Anion Gap 14 5-14 MMOL/L Blood Urea Nitrogen 18 7-18 MG/DL Creatinine 0.87 0.60-1.30 MG/DL Estimat Glomerular Filtration Rate > 60 BUN/Creatinine Ratio 21 Glucose Level 91 70-105 MG/DL Calcium Level 9.8 8.5-10.1 MG/DL Corrected Calcium 9.7 8.5-10.1 MG/DL Total Bilirubin 1.3 H 0.1-1.0 MG/DL Aspartate Amino Transf (AST/SGOT) 104 H 5-34 U/L Alanine Aminotransferase (ALT/SGPT) 263 H 0-55 U/L Alkaline Phosphatase 416 H 40-136 U/L Total Protein 7.5 6.4-8.2 GM/DL Albumin 4.1 3.2-4.5 GM/DL Amylase Level 218 H 25-125 U/L Lipase 301 H 8-78 U/L My Orders Orders - JULIO CESAR CLAYTON Ua Culture If Indicated (03/06/19 20:22) Cbc With Automated Diff (03/06/19 20:31) Comprehensive Metabolic Panel (03/06/19 20:31) Lipase (03/06/19 20:31) Amylase (03/06/19 20:31) Ed Iv/Invasive Line Start (03/06/19 20:31) Ns Iv 1000 Ml (Sodium Chloride 0.9%) (03/06/19 20:31) Ct Abdomen/Pelvis W (03/06/19 20:40) Fentanyl Injection (Sublimaze Injection (03/06/19 20:45) Ondansetron Injection (Zofran Injectio (03/06/19 20:45) Iohexol Injection (Omnipaque 350 Mg/Ml 1 (03/06/19 20:45) Received Contrast (Hold Metformin- Contr (03/06/19 20:45) Ns (Ivpb) (Sodium Chloride 0.9% Ivpb Bag (03/06/19 20:45) Medications Given in ED Current Medications Medications Dose Ordered Sig/Thai Route Start Time Stop Time Status Last Admin Dose Admin Fentanyl Citrate 75 mcg ONCE ONCE IVP 03/06/19 20:45 03/06/19 20:46 DC 03/06/19 20:51 75 MCG Iohexol 100 ml ONCE ONCE IV 03/06/19 20:45 03/06/19 21:22 DC 03/06/19 21:07 100 ML Ondansetron HCl 4 mg ONCE ONCE IVP 03/06/19 20:45 03/06/19 20:46 DC 03/06/19 20:51 4 MG Sodium Chloride 100 ml ONCE ONCE IV 03/06/19 20:45 03/06/19 21:22 DC 03/06/19 21:07 80 ML Vital Signs/I&O 03/06/19 20:27 Temp 36.5 Pulse 86 Resp 18 B/P (MAP) 130/81 (97) Pulse Ox 99 O2 Delivery Room Air Blood Pressure Mean: 97 POS Progress Progress Note #1: Time: 20:54 Progress Note Pancreatitis with or without stent failure versus gallbladder versus diverticulitis versus PUD versus urinary system infection or stone versus other? 25 migrans of fentanyl, liter fluids to start, labs to include lipase and amylase, CT of the abdomen pelvis with IV contrast. Zofran for the nausea. Progress Note #2: Time: 23:00 Progress Note Patient's pain and nausea are under control. Had a long discussion with him about staying and he is in agreement with this. Diagnostic Imaging Diagonstic Imaging: CT (with IV contrast) Plain Films/CT/US/NM/MRI: abdomen, pelvis Comments NAME: FREDY THOMSON [facility] REC#: [id number] PT STATUS: REG ER : 1965 PHYSICIAN: JULIO CESAR CLAYTON MD ADMIT DATE: 03/06/19/ER Signed POSDate of Exam:03/06/19 CT ABDOMEN/PELVIS W PROCEDURE: CT abdomen and pelvis with contrast. TECHNIQUE: Multiple contiguous axial images were obtained through the abdomen and pelvis after administration of intravenous contrast. Auto Exposure Controls were utilized during the CT exam to meet ALARA standards for radiation dose reduction. INDICATION: Upper abdominal pain. Nausea. History of pancreatic cancer. COMPARISON: 11/01/2018 FINDINGS: The heart is unremarkable. The included lung bases are clear. A stent is noted in the distal common bile duct. There is pneumobilia in the mid and distal common bile duct and throughout the intrahepatic biliary system. Air is also seen within the gallbladder lumen. The gallbladder wall is thickened. There has been interval development of numerous peripherally enhancing hypoattenuating lesions throughout the liver, the most prominent in the left hepatic lobe measuring 2.1 x 2.2 cm. The pancreas does not exhibit a large mass. No peripancreatic inflammatory changes are seen. There is mild pancreatic ductal dilation. Retroperitoneal lymphadenopathy is seen, increased compared to the prior exam. A conglomerate of lymph nodes is noted interposed between the aorta and IVC measuring approximately 2.0 x 1.3 cm. The spleen, adrenal glands, and kidneys have a normal appearance. The bowel loops are nondilated. A few fluid-filled nondilated loops of small bowel are seen in the mid abdomen. A normal appendix is seen in the right lower quadrant. There is no free fluid or free air. The osseous structures demonstrate no acute abnormalities. Ureters and bladder are grossly normal. There is no free air, loculated collection, or adenopathy in the pelvis. IMPRESSION: 1. Interval development of numerous peripherally enhancing hypoattenuating lesions throughout the liver, most likely representing metastatic disease given the history of pancreatic cancer. Additional increased lymphadenopathy is seen in the retroperitoneum. 2. Interval placement of a stent in the distal common bile duct with associated pneumobilia. 3. The primary lesion within the pancreas is not well appreciated on this exam. No peripancreatic inflammatory changes are seen. 4. Gallbladder wall thickening, likely reactive. No radiopaque stones are seen within the gallbladder lumen. 5. Scattered fluid-filled nondilated loops of small bowel in the mid abdomen, which can be seen with enteritis. Dictated by: Dictated on workstation # [id number] Dict: 03/06/192117 Trans: 03/06/192136 [facility] [id number] Interpreted by: GENIE MCGRAW DO Electronically signed by: GENIE MCGRAW DO 03/06/192136 Reviewed: Reviewed by Me Departure Communication (Admissions) Time/Spoke to Admitting Phy: 23:03 Discussed the labs, imaging and plan and she agrees to observe the patient. Time/Spoke to Consulting Phy: 22:55 Discussed the case with Dr. Ghosh, General Surgery and he reviewed the imaging and agrees that seems the stent is in good placement patent and an alternative explanation possibly enteritis. He agrees with plan to hold The patient and do medical management, fluids, pain meds and repeat labs in the morning. If there is further evidence of worsening disease burden, stent obstruction then we would plan on transferring him out. Impression Primary Impression: Enteritis Additional Impression: History of malignant neoplasm of pancreas Disposition: ADMITTED INPATIENT Condition: Stable Admissions Decision to Admit Reason: Admit from ER (General) Decision to Admit/Date: Mar 06, 2019 Time/Decision to Admit Time: 22:53 Departure-Patient Inst. Referrals: FABIANO ELLIOTT MD (PCP/Family) Primary Care Physician JULIO CESAR CLAYTON Mar 06, 2019 20:48 POS
[2019-03-06 20:52] LABS: BASOPHILS % (AUTO) 0 % (0-10); EOSINOPHILS # (AUTO) 0.2 10^3/uL (0.0-0.3); EOSINOPHILS % (AUTO) 3 % (0-10); HEMATOCRIT 34 % (40-54); HEMOGLOBIN 10.8 G/DL (13.3-17.7); LYMPHOCYTES % (AUTO) 17 % (12-44); MEAN CORPUSCULAR HEMOGLOBIN 27 PG (25-34); MEAN CORPUSCULAR HGB CONC 32 G/DL (32-36); MEAN CORPUSCULAR VOLUME 85 FL (80-99); MEAN PLATELET VOLUME 9.1 FL (7.4-10.4); MONOCYTES # (AUTO) 0.2 X 10^3 (0.0-1.0); MONOCYTES % (AUTO) 4 % (0-12); NEUTROPHILS # (AUTO) 4.4 X 10^3 (1.8-7.8); NEUTROPHILS % (AUTO) 76 % (42-75); PLATELET COUNT 248 10^3/uL (130-400); WHITE BLOOD COUNT 5.8 10^3/uL (4.3-11.0)
[2019-03-06 20:54] LABS: CLARITY,URINE CLEAR; COLOR,URINE DARK YELLOW; GLUCOSE, URINE (UA) NEGATIVE (NEGATIVE); KETONES,URINE NEGATIVE (NEGATIVE); LEUKOCYTE ESTERASE ,URINE NEGATIVE (NEGATIVE); NITRITE,URINE NEGATIVE (NEGATIVE); PROTEIN,URINE NEGATIVE (NEGATIVE)
[2019-03-06 21:14] LABS: ALANINE AMINOTRANSFERASE 263 U/L (0-55); ALBUMIN 4.1 GM/DL (3.2-4.5); ALKALINE PHOSPHATASE 416 U/L (40-136); AMYLASE 218 U/L (25-125); BILIRUBIN,TOTAL 1.3 MG/DL (0.1-1.0); BUN/CREATININE RATIO 21; CALCIUM 9.8 MG/DL (8.5-10.1); CARBON DIOXIDE 20 MMOL/L (21-32); CHLORIDE 103 MMOL/L (98-107); CREATININE SERUM 0.87 MG/DL (0.60-1.30); GFR ESTIMATED > 60; GLUCOSE 91 MG/DL (70-105); LIPASE 301 U/L (8-78); POTASSIUM 3.7 MMOL/L (3.6-5.0); SODIUM 137 MMOL/L (135-145); TOTAL PROTEIN 7.5 GM/DL (6.4-8.2)
[2019-03-06 21:19] LABS: BACTERIA,URINE NEGATIVE /HPF; BILIRUBIN,URINE 1+ (NEGATIVE); RBC,URINE RARE /HPF; SQUAMOUS EPITHELIAL CELL,UR RARE /HPF; WBC,URINE RARE /HPF
--- NOTE | 2019-03-06 21:34 | Diagnostic Imaging Report ---
PROCEDURE: CT abdomen and pelvis with contrast. TECHNIQUE: Multiple contiguous axial images were obtained through the abdomen and pelvis after administration of intravenous contrast. Auto Exposure Controls were utilized during the CT exam to meet ALARA standards for radiation dose reduction. INDICATION: Upper abdominal pain. Nausea. History of pancreatic cancer. COMPARISON: 11/01/2018 FINDINGS: The heart is unremarkable. The included lung bases are clear. A stent is noted in the distal common bile duct. There is pneumobilia in the mid and distal common bile duct and throughout the intrahepatic biliary system. Air is also seen within the gallbladder lumen. The gallbladder wall is thickened. There has been interval development of numerous peripherally enhancing hypoattenuating lesions throughout the liver, the most prominent in the left hepatic lobe measuring 2.1 x 2.2 cm. The pancreas does not exhibit a large mass. No peripancreatic inflammatory changes are seen. There is mild pancreatic ductal dilation. Retroperitoneal lymphadenopathy is seen, increased compared to the prior exam. A conglomerate of lymph nodes is noted interposed between the aorta and IVC measuring approximately 2.0 x 1.3 cm. The spleen, adrenal glands, and kidneys have a normal appearance. The bowel loops are nondilated. A few fluid-filled nondilated loops of small bowel are seen in the mid abdomen. A normal appendix is seen in the right lower quadrant. There is no free fluid or free air. The osseous structures demonstrate no acute abnormalities. Ureters and bladder are grossly normal. There is no free air, loculated collection, or adenopathy in the pelvis. IMPRESSION: 1. Interval development of numerous peripherally enhancing hypoattenuating lesions throughout the liver, most likely representing metastatic disease given the history of pancreatic cancer. Additional increased lymphadenopathy is seen in the retroperitoneum. 2. Interval placement of a stent in the distal common bile duct with associated pneumobilia. 3. The primary lesion within the pancreas is not well appreciated on this exam. No peripancreatic inflammatory changes are seen. 4. Gallbladder wall thickening, likely reactive. No radiopaque stones are seen within the gallbladder lumen. 5. Scattered fluid-filled nondilated loops of small bowel in the mid abdomen, which can be seen with enteritis. Dictated by: Dictated on workstation # [id number]
--- NOTE | 2019-03-06 23:45 | NUR ---
FREDY THOMSON admitted to room 423-1, with an admitting diagnosis of ENTERITIS, on 03/06/19 from ED via WHEELCHAIR, accompanied by STAFF.FREDY THOMSON introduced to surroundings, call light, bed controls, phone, TV, temperature control, lights, meal times, smoking policy, visitor policy, side rail policy, bathrooms and showers. Patient Rights given to patient in the handbook. FREDY THOMSON verbalizes understanding that [facility] is not responsible for the loss or damage to any personal effects or valuables that are kept in the patients posession during their hospitalization.
[2019-03-06] MEDS ORDERED: LACTATED RINGERS 1,000 ML IV ONE (23:58)
[2019-03-06] MEDS: LACTATED RINGERS 1,000 ML IV SCH (23:58)
[2019-03-07] VITALS (7 sets, daily range): BP systolic 105–133; BP diastolic 68–81
[2019-03-07] MEDS ORDERED: HYDROcodone/APAP 5 MG/325 MG (LORTAB) TAB PO PRN (01:45)
[2019-03-07] MEDS ORDERED: ACETAMINOPHEN 325 MG TABLET PO PRN (01:45)
[2019-03-07] MEDS ORDERED: ONDANSETRON 4 MG/2 ML (SDV) Z0FRAN IV PRN (01:45)
[2019-03-07] MEDS ORDERED: fentaNYL INJECTION 100 MCG/2 ML AMP IV PRN (01:45)
[2019-03-07] MEDS ORDERED: KETOROLAC 15 MG/ML VIAL IV PRN (01:45)
[2019-03-07] MEDS ORDERED: PROMETHAZINE 25 MG (PHENERGAN) TAB PO PRN (01:45)
[2019-03-07 06:06] LABS: BASOPHILS % (AUTO) 1 % (0-10); EOSINOPHILS # (AUTO) 0.2 10^3/uL (0.0-0.3); EOSINOPHILS % (AUTO) 4 % (0-10); HEMATOCRIT 30 % (40-54); HEMOGLOBIN 9.5 G/DL (13.3-17.7); LYMPHOCYTES % (AUTO) 27 % (12-44); MEAN CORPUSCULAR HEMOGLOBIN 27 PG (25-34); MEAN CORPUSCULAR HGB CONC 32 G/DL (32-36); MEAN CORPUSCULAR VOLUME 86 FL (80-99); MEAN PLATELET VOLUME 10.5 FL (7.4-10.4); MONOCYTES # (AUTO) 0.3 X 10^3 (0.0-1.0); MONOCYTES % (AUTO) 8 % (0-12); NEUTROPHILS # (AUTO) 2.3 X 10^3 (1.8-7.8); NEUTROPHILS % (AUTO) 60 % (42-75); PLATELET COUNT 209 10^3/uL (130-400); RED CELL DISTRIBUTION WIDTH 20.8 % (10.0-14.5); WHITE BLOOD COUNT 3.8 10^3/uL (4.3-11.0)
[2019-03-07 06:25] LABS: ALANINE AMINOTRANSFERASE 188 U/L (0-55); ALBUMIN 3.4 GM/DL (3.2-4.5); ALKALINE PHOSPHATASE 361 U/L (40-136); AMYLASE 149 U/L (25-125); BILIRUBIN,TOTAL 0.8 MG/DL (0.1-1.0); BUN/CREATININE RATIO 15; CALCIUM 8.5 MG/DL (8.5-10.1); CARBON DIOXIDE 21 MMOL/L (21-32); CHLORIDE 106 MMOL/L (98-107); CREATININE SERUM 0.79 MG/DL (0.60-1.30); GFR ESTIMATED > 60; GLUCOSE 76 MG/DL (70-105); LIPASE 160 U/L (8-78); POTASSIUM 3.6 MMOL/L (3.6-5.0); SODIUM 137 MMOL/L (135-145); TOTAL PROTEIN 6.2 GM/DL (6.4-8.2)
[2019-03-07] MEDS: fentaNYL INJECTION 100 MCG/2 ML AMP IV PRN ×2 (07:55→15:46)
--- NOTE | 2019-03-07 08:49 | Consultation - Surgery ---
JAMES LANE MED STUDENT 03/07/19 0849: History of Present Illness History of Present Illness Patient Consulted On(miguelina/time) 03/07/19 08:44 Date Seen by Provider: Mar 07, 2019 Time Seen by Provider: 07:15 History of Present Illness Mr. Doss is here today due to abdominal and back pain with vomiting. He has a history of pancreatic cancer with liver metastases and stenting of his pancreatic duct. He describes sharp RUQ pain that wraps around to his right upper back that began on Wednesday, as well as nausea and vomiting on Wednesday. His symptoms improved on Wednesday, then resumed on Wednesday, prompting him to call his oncologist who recommended he go to the ER if the pain continued. Before coming in he had 7 to 8/10 abdominal and back pain, nausea but no more vomiting, and he noticed jaundice in his eyes. His pain is constant, and is worsened by lying on his right side or by exertion. He also reports constipation since Wednesday or Wednesday, he cannot remember which day. Allergies and Home Medications Allergies Coded Allergies: Penicillins (Verified Allergy, Intermediate, HIVES, 02/01/15) Home Medications Calcium Carbonate 300 Mg Tab.chew, 300 MG PO TID PRN for INDIGESTION, (Reported) Ibuprofen 200 Mg Tablet, 400 MG PO BID, (Reported) TAKES 2 (200MG) TABLETS Pantoprazole Sodium 40 Mg Tablet.dr, 40 MG PO DAILY, (Reported) Past Fmaodgk-Johxor-Dnntib Hx Patient Social History Alcohol Use: Denies Use Recreational Drug Use: No Drug of Choice: CANNIBUS Smoking Status: Former Smoker (1/2 pack) Type Used: Cigarettes Recent Foreign Travel: No Contact w/Someone Who Travel: No Recent Infectious Disease Expo: No Recent Hopitalizations: No Immunizations Up To Date Tetanus Booster (TDap): Unknown Seasonal Allergies Seasonal Allergies: No Surgeries History of Surgeries: Yes (TUMOR REMOVAL TO FACE, PANCREATIC STENT) Respiratory History of Respiratory Disorde: No Cardiovascular History of Cardiac Disorders: No Neurological History of Neurological Disord: No Genitourinary History of Genitourinary Disor: No Gastrointestinal History of Gastrointestinal Di: No Gastrointestinal Disorders: Gastroesophageal Reflux Musculoskeletal History of Musculoskeletal Dis: No Endocrine History of Endocrine Disorders: No HEENT History of HEENT Disorders: No Cancer History of Cancer: Yes Cancer: Liver, Pancreatic Psychosocial History of Psychiatric Problem: No Integumentary History of Skin or Integumenta: No Blood Transfusions History of Blood Disorders: No Family Medical History Significant Family History: Cancer (mother (lymphoma), maternal grandfather (colon cancer), paternal grandfather (pt doesn't know)), Diabetes (father and both grandmothers) Review of Systems-General Constitutional: No dizziness, No fever EENTM: nose congestion, throat pain Respiratory: cough, phlegm; No short of breath Cardiovascular: No chest pain, No edema, No palpitations Gastrointestinal: abdominal pain (RUQ), constipation, heartburn, nausea, vomiting Genitourinary: dysuria (occasional), other (orange urine in ER) Skin: change in color (yellow sclera), pruritus (neck) Physical Exam-General Problems Physical Exam Vital Signs Vital Signs - First Documented 03/06/19 20:27 Temp 36.5 Pulse 86 Resp 18 B/P (MAP) 130/81 (97) Pulse Ox 99 O2 Delivery Room Air Capillary Refill : Less Than 3 Seconds General Appearance: WD/WN, mild distress Neck: full range of motion, supple, normal inspection, tender lateral (bilateral near level of thyroid) Respiratory: lungs clear, normal breath sounds, no respiratory distress, no accessory muscle use Cardiovascular: regular rate, rhythm, no edema, no murmur Peripheral Pulses: 2+ Dorsalis Pedis (R), 2+ Left Dors-Pedis (L), 2+ Radial Pulses (R), 2+ Radial Pulses (L) Gastrointestinal: normal bowel sounds, soft, tenderness (RUQ, epigastric) Extremities: normal inspection, no pedal edema, no calf tenderness, normal capillary refill Neurologic/Psychiatric: alert, oriented x 3 Skin: normal color, warm/dry Data Review Labs Laboratory Tests 03/06/19 20:30: White Blood Count 5.8, Red Blood Count 3.97L, Hemoglobin 10.8L, Hematocrit 34L, Mean Corpuscular Volume 85, Mean Corpuscular Hemoglobin 27, Mean Corpuscular Hemoglobin Concent 32, Red Cell Distribution Width 21.0H, Platelet Count 248, Mean Platelet Volume 9.1, Neutrophils (%) (Auto) 76H, Lymphocytes (%) (Auto) 17, Monocytes (%) (Auto) 4, Eosinophils (%) (Auto) 3, Basophils (%) (Auto) 0, Neutrophils # (Auto) 4.4, Lymphocytes # (Auto) 1.0, Monocytes # (Auto) 0.2, Eosinophils # (Auto) 0.2, Basophils # (Auto) 0.0, Urine Color DARK YELLOW, Urine Clarity CLEAR, Urine pH 6.0, Urine Specific [place] 1.025H, Urine Protein NEGATIVE, Urine Glucose (UA) NEGATIVE, Urine Ketones NEGATIVE, Urine Nitrite NEGATIVE, Urine Bilirubin 1+H, Urine Urobilinogen 1.0, Urine Leukocyte Esterase NEGATIVE, Urine RBC (Auto) NEGATIVE, Urine RBC RARE, Urine WBC RARE, Urine Squamous Epithelial Cells RARE, Urine Crystals NONE, Urine Bacteria NEGATIVE, Urine Casts NONE, Urine Mucus SMALLH, Urine Culture Indicated NO, Sodium Level 137, Potassium Level 3.7, Chloride Level 103, Carbon Dioxide Level 20L, Anion Gap 14, Blood Urea Nitrogen 18, Creatinine 0.87, Estimat Glomerular Filtration Rate > 60, BUN/Creatinine Ratio 21, Glucose Level 91, Calcium Level 9.8, Corrected Calcium 9.7, Total Bilirubin 1.3H, Aspartate Amino Transf (AST/SGOT) 104H, Alanine Aminotransferase (ALT/SGPT) 263H, Alkaline Phosphatase 416H, Total Protein 7.5, Albumin 4.1, Amylase Level 218H, Lipase 301H 03/07/19 05:05: White Blood Count 3.8L, Red Blood Count 3.49L, Hemoglobin 9.5L, Hematocrit 30L, Mean Corpuscular Volume 86, Mean Corpuscular Hemoglobin 27, Mean Corpuscular Hemoglobin Concent 32, Red Cell Distribution Width 20.8H, Platelet Count 209, Mean Platelet Volume 10.5H, Neutrophils (%) (Auto) 60, Lymphocytes (%) (Auto) 27, Monocytes (%) (Auto) 8, Eosinophils (%) (Auto) 4, Basophils (%) (Auto) 1, Neutrophils # (Auto) 2.3, Lymphocytes # (Auto) 1.0, Monocytes # (Auto) 0.3, Eosinophils # (Auto) 0.2, Basophils # (Auto) 0.0, Sodium Level 137, Potassium Level 3.6, Chloride Level 106, Carbon Dioxide Level 21, Anion Gap 10, Blood Urea Nitrogen 12, Creatinine 0.79, Estimat Glomerular Filtration Rate > 60, BUN/Creatinine Ratio 15, Glucose Level 76, Calcium Level 8.5, Corrected Calcium 9.0, Total Bilirubin 0.8, Aspartate Amino Transf (AST/SGOT) 66H, Alanine Aminotransferase (ALT/SGPT) 188H, Alkaline Phosphatase 361H, Total Protein 6.2L, Albumin 3.4, Amylase Level 149H, Lipase 160H Assessment/Plan Assessment/Plan Assessment/Plan RUQ pain, enteritis on CT Hx of pancreatic cancer w/ liver metastases Continue managing pain, monitoring labs, clear liquid diet Clinical Quality Measures DVT/VTE Risk/Contraindication: Risk Factor Score Per Nursin RFS Level Per Nursing on Admit: 4+=Very High ALEX VAZ DO 03/07/19 1756: History of Present Illness History of Present Illness Time Seen by Provider: 17:08 History of Present Illness Pt unfortunately has pancreatic cancer, came in secondary to pain. He thinks pain might be a little better today; he thought he might be getting "a little yellow and itchy", but that is gone. Allergies and Home Medications Allergies Coded Allergies: Penicillins (Verified Allergy, Intermediate, HIVES, 02/01/15) Home Medications Calcium Carbonate 300 Mg Tab.chew, 300 MG PO TID PRN for INDIGESTION, (Reported) Ibuprofen 200 Mg Tablet, 400 MG PO BID, (Reported) TAKES 2 (200MG) TABLETS Pantoprazole Sodium 40 Mg Tablet.dr, 40 MG PO DAILY, (Reported) Patient Home Medication List Home Medication List Reviewed: Yes Assessment/Plan Assessment/Plan Assessment/Plan Stage IV Pancreatic Cancer Pt unfortunately has not come to terms with his diagnosis and is angry at everyone and blaming "Medicaid and the Doctor's; its all about the money". His enzymes are improving, which hopefully means his pancreatic stent is not blocked. He needs to have a good conversation with someone who can better explain his situation or come to understand; possibly Hospice if not already done. Nothing surgical at this time; he can eat regular diet. Supervisory-Addendum Brief Verification & Attestation Participated in pt care: history, MDM, physical Personally performed: exam, history, MDM Care discussed with: Medical Student Procedures: n/a Verification and Attestation of Medical Student E/M Service A medical student performed and documented this service in my presence. I reviewed and verified all information documented by the medical student and made modifications to such information, when appropriate. I personally performed the physical exam and medical decision making. Alex Vaz, Mar 07, 2019,17:[address] MED STUDENT Mar 07, 2019 08:49 ALEX HSIEH DO Mar 07, 2019 17:56 POS
[2019-03-07] MEDS: LACTATED RINGERS 1,000 ML IV SCH ×3 (09:00→23:57)
[2019-03-07] MEDS ORDERED: IBUP-30 PO (09:31)
[2019-03-07] MEDS ORDERED: CALC300T4 PO (09:31)
--- NOTE | 2019-03-07 09:31 | NUR ---
SPOKE WITH THE PATIENT ABOUT HIS MEDICATIONS. WE WENT OVER THE EXT MED HX. HE VERIFIED HE IS TAKING THE PROTONIX DAILY HOWEVER THE MAGIC MOUTHWASH HE HAD FILLED MADE HIM SICK, IT TRIGGERED HIS GAG REFLEX AND HE IS NOT TAKING IT. HE TAKES ADVIL AND TUMS PRN OTC.
--- NOTE | 2019-03-07 10:00 | NUR ---
DR RUIZ NOTIFIED THAT PATIENT WAS IN HOSPITAL INSTRUCTED BY DR HEARN
--- NOTE | 2019-03-07 14:21 | History & Physical ---
HPI History of Present Illness: 53 yo male with metastatic pancreatic cancer on chemotherapy with Dr. Hardy and history of bile duct stenting he believes end of Sep or mid-Jan, presented to ER due to severe right sided and back pain for 3 days. He also had orange urine and has had nasal congestion, mucous and sinus infection symptoms and has felt fev erish. He is due for chemo tomorrow. Source: patient Date seen by provider: Mar 07, 2019 Time Seen by Provider: 09:58 Attending Physician Kerline Lyons MD PCP Fabiano Noonan MD Consult Date of Admission Mar 06, 2019 at 23:09 Home Medications Home Medications Reviewed patient Home Medication Reconciliation performed by pharmacy medication reconciliations pest technician and/or nursing. Patients Allergies have been reviewed. Allergies Coded Allergies: Penicillins (Verified Allergy, Intermediate, HIVES, 02/01/15) DBS-[id number]-Xmtkad Hx Patient Social History Alcohol Use: Denies Use Recreational Drug Use: No Drug of Choice: CANNIBUS Smoking Status: Former Smoker (1/2 pack) Type Used: Cigarettes Recent Foreign Travel: No Contact w/other who traveled: No Recent Hopitalizations: No Recent Infectious Disease Expo: No Immunizations Up To Date Tetanus Booster (TDap): Unknown Past Medical History PMHx: Pancreatic cancer Bile duct stent x 2 Family Medical History Significant Family History: Cancer (mother (lymphoma), maternal grandfather (colon cancer), paternal grandfather (pt doesn't know)), Diabetes (father and both grandmothers) Review of Systems ([facility]) Constitutional: fever, malaise EENTM: nose congestion, nose pain Respiratory: cough Gastrointestinal: see HPI Musculoskeletal: back pain Reviewed Test Results Reviewed Test Results Lab Laboratory Tests Test 03/06/19 20:30 03/07/19 05:05 Range/Units White Blood Count 5.8 3.8 L 4.3-11.0 10^3/uL Red Blood Count 3.97 L 3.49 L 4.35-5.85 10^6/uL Hemoglobin 10.8 L 9.5 L 13.3-17.7 G/DL Hematocrit 34 L 30 L 40-54 % Mean Corpuscular Volume 85 86 80-99 FL Mean Corpuscular Hemoglobin 27 27 25-34 PG Mean Corpuscular Hemoglobin Concent 32 32 32-36 G/DL Red Cell Distribution Width 21.0 H 20.8 H 10.0-14.5 % Platelet Count 248 209 130-400 10^3/uL Mean Platelet Volume 9.1 10.5 H 7.4-10.4 FL Neutrophils (%) (Auto) 76 H 60 42-75 % Lymphocytes (%) (Auto) 17 27 12-44 % Monocytes (%) (Auto) 4 8 0-12 % Eosinophils (%) (Auto) 3 4 0-10 % Basophils (%) (Auto) 0 1 0-10 % Neutrophils # (Auto) 4.4 2.3 1.8-7.8 X 10^3 Lymphocytes # (Auto) 1.0 1.0 1.0-4.0 X 10^3 Monocytes # (Auto) 0.2 0.3 0.0-1.0 X 10^3 Eosinophils # (Auto) 0.2 0.2 0.0-0.3 10^3/uL Basophils # (Auto) 0.0 0.0 0.0-0.1 10^3/uL Urine Color DARK YELLOW Urine Clarity CLEAR Urine pH 6.0 5-9 Urine Specific [place] 1.025 H 1.016-1.022 Urine Protein NEGATIVE NEGATIVE Urine Glucose (UA) NEGATIVE NEGATIVE Urine Ketones NEGATIVE NEGATIVE Urine Nitrite NEGATIVE NEGATIVE Urine Bilirubin 1+ H NEGATIVE Urine Urobilinogen 1.0 < = 1.0 MG/DL Urine Leukocyte Esterase NEGATIVE NEGATIVE Urine RBC (Auto) NEGATIVE NEGATIVE Urine RBC RARE /HPF Urine WBC RARE /HPF Urine Squamous Epithelial Cells RARE /HPF Urine Crystals NONE /LPF Urine Bacteria NEGATIVE /HPF Urine Casts NONE /LPF Urine Mucus SMALL H /LPF Urine Culture Indicated NO Sodium Level 137 137 135-145 MMOL/L Potassium Level 3.7 3.6 3.6-5.0 MMOL/L Chloride Level 103 106 98-107 MMOL/L Carbon Dioxide Level 20 L 21 21-32 MMOL/L Anion Gap 14 10 5-14 MMOL/L Blood Urea Nitrogen 18 12 7-18 MG/DL Creatinine 0.87 0.79 0.60-1.30 MG/DL Estimat Glomerular Filtration Rate > 60 > 60 BUN/Creatinine Ratio 21 15 Glucose Level 91 76 70-105 MG/DL Calcium Level 9.8 8.5 8.5-10.1 MG/DL Corrected Calcium 9.7 9.0 8.5-10.1 MG/DL Total Bilirubin 1.3 H 0.8 0.1-1.0 MG/DL Aspartate Amino Transf (AST/SGOT) 104 H 66 H 5-34 U/L Alanine Aminotransferase (ALT/SGPT) 263 H 188 H 0-55 U/L Alkaline Phosphatase 416 H 361 H 40-136 U/L Total Protein 7.5 6.2 L 6.4-8.2 GM/DL Albumin 4.1 3.4 3.2-4.5 GM/DL Amylase Level 218 H 149 H 25-125 U/L Lipase 301 H 160 H 8-78 U/L Radiology CT abd/pelvis 03/06/19: liver lesions concerning for metastatic disease, r etroperitoneal lymphadenopathy, pneumobilia with pancreatic stent/duct dilation, gall bladder wall thickening, fluid filled small bowel loops which could represent enteritis. Physical Exam-([facility]) Physical Exam Vital Signs VS - Last 72 Hours, by Label POS 03/06/19 03/06/19 03/07/19 03/07/19 20:27 23:27 00:32 00:39 Temp 36.5 36.7 35.7 35.7 Pulse 86 69 70 70 Resp 18 18 17 17 B/P (MAP) 130/81 (97) 127/75 (97) 105/68 105/68 (80) Pulse Ox 99 98 98 98 O2 Delivery Room Air Room Air Room Air Room Air 03/07/19 03/07/19 03/07/19 03/07/19 01:07 04:00 08:00 08:00 Temp 35.7 37.0 Pulse 71 62 Resp 17 18 B/P (MAP) 126/74 (91) 111/73 (86) Pulse Ox 76 96 96 O2 Delivery Room Air Room Air Room Air Room Air 03/07/19 12:09 Temp 37.3 Pulse 68 Resp 20 B/P (MAP) 133/81 (98) Pulse Ox 100 O2 Delivery Room Air Capillary Refill : Less Than 3 SecondsLess Than 3 Seconds General Appearance: WD/WN, no apparent distress Respiratory: lungs clear, normal breath sounds Cardiovascular: regular rate, rhythm, no murmur Gastrointestinal: normal bowel sounds, distended, guarding, tenderness (geatest in RUQ) Extremities: no pedal edema Neurologic/Psychiatric: alert, normal mood/affect Skin: normal color, warm/dry Assessment/Plan Assessment/Plan Admission Status: Observation (1) Elevated liver enzymes Status: Acute Assessment & Plan: Trending down this am, appears bile duct stent remains patent. (2) Enteritis Status: Acute Assessment & Plan: Supportive care with IVF, anti-emetics, advance diet as tolerated (3) Elevated lipase Status: Acute Assessment & Plan: Decreasing this am. (4) History of malignant neoplasm of pancreas Status: Chronic Assessment & Plan: Dr. Hardy to see tomorrow if still inpatient to discuss chemotherapy plans. (5) DVT prophylaxis Status: Acute Assessment & Plan: Enoxaparin Clinical Quality Measures DVT/VTE Risk/Contraindication: Risk Factor Score Per Nursin RFS Level Per Nursing on Admit: 4+=Very High Copy Copies To 1: FABIANO NOONAN MD, BETHANY N MD Mar 07, 2019 14:21 POS
[2019-03-07] MEDS ORDERED: ENOXAPARIN 40 MG/0.4 ML (LOVENOX) SYR SQ SCH (14:30)
[2019-03-08] VITALS: BP 121/78
[2019-03-08 04:00] VITALS: BP 120/78
[2019-03-08 05:38] LABS: HEMOGLOBIN 9.2 G/DL (13.3-17.7); MEAN PLATELET VOLUME 10.3 FL (7.4-10.4); RED CELL DISTRIBUTION WIDTH 21.1 % (10.0-14.5); WHITE BLOOD COUNT 6.1 10^3/uL (4.3-11.0)
[2019-03-08 06:00] LABS: ALANINE AMINOTRANSFERASE 125 U/L (0-55); ALBUMIN 3.2 GM/DL (3.2-4.5); ALKALINE PHOSPHATASE 294 U/L (40-136); BILIRUBIN,TOTAL 0.4 MG/DL (0.1-1.0); BUN/CREATININE RATIO 10; CALCIUM 8.5 MG/DL (8.5-10.1); CARBON DIOXIDE 23 MMOL/L (21-32); CHLORIDE 109 MMOL/L (98-107); CREATININE SERUM 0.78 MG/DL (0.60-1.30); GFR ESTIMATED > 60; GLUCOSE 104 MG/DL (70-105); POTASSIUM 4.1 MMOL/L (3.6-5.0); SODIUM 141 MMOL/L (135-145); TOTAL PROTEIN 5.8 GM/DL (6.4-8.2)
--- NOTE | 2019-03-08 07:45 | Progress Note - Surgery ---
JAMES L[address] MED STUDENT 03/08/19 0745: Subjective Date Seen by a Provider: Mar 08, 2019 Time Seen by a Provider: 06:45 Subjective/Events-last exam Mr. Doss reports feeling about the same today as yesterday. Dwells on his cancer diagnosis and management a lot. Still has cough and sore throat, sputum seemed more green today. Still has RUQ pain, no recurrence of nausea and vomiting. No new complaints. Review of Systems General: No Chills; Fatigue HEENT: Head Aches; No Sinus Congestion; Post Nasal Drip, Sore Throat Pulmonary: No Dyspnea; Cough Cardiovascular: Lt Headedness (mild); No: Chest Pain Gastrointestinal: Abdominal Pain, Constipation; No: Nausea, Melena, Hematochezia Genitourinary: No Dysuria; Frequency (attributes to IV fluids); No Hematuria Neurological: No: Weakness, Numbness Objective Exam Vital Signs Date Time Temp Pulse Resp B/P (MAP) Pulse Ox O2 Delivery O2 Flow Rate FiO2 03/08/19 04:00 36.7 68 20 120/78 (92) 97 Room Air 03/08/19 00:00 36.7 59 18 121/78 (92) 98 Room Air 03/07/19 20:00 Room Air 03/07/19 19:52 36.6 62 18 124/73 (90) 98 Room Air 03/07/19 15:48 36.6 65 20 121/81 (94) 97 Room Air 03/07/19 12:09 37.3 68 20 133/81 (98) 100 Room Air 03/07/19 08:00 37.0 62 18 111/73 (86) 96 Room Air 03/07/19 08:00 96 Room Air I & O 03/08/19 07:00 Intake Total 3450 ml Balance 3450 ml Capillary Refill : Less Than 3 SecondsLess Than 3 Seconds General Appearance: WD/WN, Anxious Respiratory: Lungs Clear, Normal Breath Sounds, No Accessory Muscle Use, No Respiratory Distress Cardiovascular: Regular Rate, Rhythm, No Murmur, Normal Peripheral Pulses Peripheral Pulses: 2+ Dorsalis Pedis (R), 2+ Left Dors-Pedis (L), 2+ Radial Pulses (R), 2+ Radial Pulses (L) Gastrointestinal: normal bowel sounds, no organomegaly, tenderness (geatest in RUQ) Extremity: No Calf Tenderness, No Pedal Edema Neurologic/Psychiatric: Alert, Oriented x3 Skin: Normal Color, Warm/Dry Results Lab Laboratory Tests 03/08/19 05:05: White Blood Count 6.1, Red Blood Count 3.36L, Hemoglobin 9.2L, Hematocrit 30L, Mean Corpuscular Volume 88, Mean Corpuscular Hemoglobin 27, Mean Corpuscular Hemoglobin Concent 31L, Red Cell Distribution Width 21.1H, Platelet Count 153, Mean Platelet Volume 10.3, Sodium Level 141, Potassium Level 4.1, Chloride Level 109H, Carbon Dioxide Level 23, Anion Gap 9, Blood Urea Nitrogen 8, Creatinine 0.78, Estimat Glomerular Filtration Rate > 60, BUN/Creatinine Ratio 10, Glucose Level 104, Calcium Level 8.5, Corrected Calcium 9.1, Total Bilirubin 0.4, Aspartate Amino Transf (AST/SGOT) 34, Alanine Aminotransferase (ALT/SGPT) 125H, Alkaline Phosphatase 294H, Total Protein 5.8L, Albumin 3.2 Assessment/Plan Assessment/Plan Assessment/Plan Stage IV pancreatic cancer RUQ pain, enteritis on CT Continue pain management, regular diet. Monitor pancreatic and liver enzymes, signs of stent blockage. Clinical Quality Measures DVT/VTE Risk/Contraindication: Risk Factor Score Per Nursin RFS Level Per Nursing on Admit: 4+=Very High ALEX VAZ DO 03/08/19 1225: Subjective Time Seen by a Provider: 12:07 Subjective/Events-last exam Pt seen and examined, no changes or new complaints. Labs have improved. Assessment/Plan Assessment/Plan Assessment/Plan Pt's labs have improved again, pt no longer needs to be in hospital and can be sent home. Supervisory-Addendum Brief Verification & Attestation Participated in pt care: history, MDM, physical Personally performed: exam, history, MDM Care discussed with: Medical Student Procedures: n/a Verification and Attestation of Medical Student E/M Service A medical student performed and documented this service in my presence. I reviewed and verified all information documented by the medical student and made modifications to such information, when appropriate. I personally performed the physical exam and medical decision making. Alex Vaz, Mar 08, 2019,12:[address] MED STUDENT Mar 08, 2019 07:45 ALEX HSIEH DO Mar 08, 2019 12:25 POS
[2019-03-08 08:00] VITALS: BP 123/78
[2019-03-08] MEDS: LACTATED RINGERS 1,000 ML IV SCH (08:02)
[2019-03-08] MEDS ORDERED: PANTOPRAZOLE 40 MG (PROTONIX) TAB PO SCH (09:00)
[2019-03-08] MEDS ORDERED: guaiFENesin (MUCINEX) 600 MG TAB PO SCH (09:00)
--- NOTE | 2019-03-08 10:00 | NUR ---
CM/SS spoke with the patient to assess for needs upon discharge. The patient is to return home after discharge. The patient stated that he has talked to someone about rescheduling his chemo treatment. The patient has been working on assistance for his electric bill with [facility] Amanda Messer and needed papers faxed. CM/SS assisted with this. The patient verbalized that he needed help with gas to get home. CM/SS provided the patient with a gas card. The patient stated that he did not have any other needs at this time. Addendum: 03/08/19 at 1009 by CYDNEY CRAWLEY JOSE social work student note reviewed and approved
[2019-03-08] MEDS ORDERED: GUAI600T43 PO (11:04)
[2019-03-08] MEDS ORDERED: PROM25TA14 PO (11:04)
[2019-03-08] MEDS ORDERED: ACHD5005 PO (11:04)
[2019-03-08] MEDS ORDERED: POLY17PO6 PO (11:04)
--- NOTE | 2019-03-08 11:09 | Discharge Summary ---
Discharge Summary Hospital Course Problems Reviewed?: Yes Problems/Diagnosis: (1) Elevated liver enzymes Status: Acute Assessment & Plan: Trended down throughout stay, appears bile duct stent remains patent. (2) Enteritis Status: Acute Assessment & Plan: Supportive care with IVF, anti-emetics, advance diet as tolerated 03/08 tolerating oral, given script for promethazine and miralax due to constipation. (3) Elevated lipase Status: Acute Assessment & Plan: Decreased during stay (4) History of malignant neoplasm of pancreas Status: Chronic Assessment & Plan: Follow up with cancer center for next step, no chemo today 03/[address] Hardy as originally planned. Hospital Course Date of Admission: Mar 06, 2019 at 23:09 Admission Diagnosis : See problem list Family Physician/Provider: Fabiano Noonan MD Date of Discharge: 03/08/19 Discharge Diagnosis: See problem list Hospital Course: See problem list. Additionally had congestion and mucous without fever and with symptoms for 4-5 days, given Mucinex which he did report helped symptomatically. Labs and Pending Lab Test: Laboratory Tests 03/08/19 05:05: White Blood Count 6.1, Red Blood Count 3.36L, Hemoglobin 9.2L, Hematocrit 30L, Mean Corpuscular Volume 88, Mean Corpuscular Hemoglobin 27, Mean Corpuscular Hemoglobin Concent 31L, Red Cell Distribution Width 21.1H, Platelet Count 153, Mean Platelet Volume 10.3, Sodium Level 141, Potassium Level 4.1, Chloride Level 109H, Carbon Dioxide Level 23, Anion Gap 9, Blood Urea Nitrogen 8, Creatinine 0.78, Estimat Glomerular Filtration Rate > 60, BUN/Creatinine Ratio 10, Glucose Level 104, Calcium Level 8.5, Corrected Calcium 9.1, Total Bilirubin 0.4, Aspartate Amino Transf (AST/SGOT) 34, Alanine Aminotransferase (ALT/SGPT) 125H, Alkaline Phosphatase 294H, Total Protein 5.8L, Albumin 3.2 Home Meds Active Miralax (Polyethylene Glycol 3350) 17 Gm Powd.pack 17 Gm PO DAILY PRN Mucinex (Guaifenesin) 600 Mg Tab.er.12h 600 Mg PO BID PRN Hydrocodone/Acetaminophen 5/325mg Tablet (Acetaminophen/Hydrocodone Bitart) 1 Tab Tab 1 Tab PO Q6H PRN Promethazine Tablet (Promethazine HCl) 25 Mg Tablet 25 Mg PO Q6H PRN Reported Tums (Calcium Carbonate) 300 Mg Tab.chew 300 Mg PO TID PRN Pantoprazole Sodium 40 Mg Tablet.dr 40 Mg PO DAILY Assessment/Pt DC Instructions Follow up with Dr. Noonan on 03/13 at 9:40 am. Follow up with Dr. Hardy as directed. Discharge Diet: Avoid Fatty Foods Activity as Tolerated: Yes Discharge Physical Examination Allergies: Coded Allergies: Penicillins (Verified Allergy, Intermediate, HIVES, 02/01/15) General Appearance: No Apparent Distress, WD/WN Respiratory: Lungs Clear, Normal Breath Sounds Cardiovascular: Regular Rate, Rhythm, No Murmur Gastrointestinal: Normal Bowel Sounds, Soft, Tenderness (decreased from previous day) Extremity: No Pedal Edema Skin: Normal Color, Warm/Dry Neurologic/Psychiatric: Alert, Normal Mood/Affect Copy Copies To 1: FABIANO NOONAN MD Discharge Summary Date of Admission Mar 06, 2019 at 23:09 Date of Discharge Clinical Quality Measures DVT/VTE Risk/Contraindication: Risk Factor Score Per Nursin RFS Level Per Nursing on Admit: 4+=Very High AGNES HEARN MD Mar 08, 2019 11:09 POS
[2019-03-08 12:50] VITALS: BP 123/78
--- NOTE | 2019-03-08 12:50 | NUR ---
FREDY THOMSON demonstrates understanding of discharge instructions and accurately returns instructions upon questioning. Copy of Post-Discharge Instructions and Medication Discharge Instructions given to PATIENT. FREDY THOMSON is able to manage continuing needs after discharge. Patients belongings returned to PATIENT. Skin dry and intact; no breakdown noted. Patient discharged from [facility] on 03/08/19 at 1250 . FREDY THOMSON left floor via W/C, accompanied by STAFF.
--- NOTE | 2019-03-08 15:10 | NUR ---
PT is Medicaid pending with [place]. He is with out funds to purchase medication. Pt was [facility] to [facility] and was able to obtain his prescriptions at discharge.
== END 2019-03-08 11:02 | disposition home or self-care (01) ==
LOC: EDUNIT# 20:21 → ER 20:24 → UNDOADMOB 23:09 → 4TH 23:09 → UNDODISOB 03-08 12:50
PROVIDERS: ADMIT Family Medicine; ATTEND Family Medicine
DX: R94.5 Abnormal results of liver function studies (principal); K52.9 Noninfective gastroenteritis and colitis, unspecified; Z85.07 Personal history of malignant neoplasm of pancreas; Z79.899 Other long term (current) drug therapy; Z88.0 Allergy status to penicillin; Z92.21 Personal history of antineoplastic chemotherapy; Z87.891 Personal history of nicotine dependence; Z80.9 Family history of malignant neoplasm, unspecified; Z83.3 Family history of diabetes mellitus
CPT/HCPCS: 36415; 74177; 80053; 81000; 82150; 83690; 85025; 85027; 96361; 96374; 96375; G0378

== ENCOUNTER 2019-03-09 14:54 | Inpatient (IN) | payer OTHER ==
[~2019-03-09] VITALS: Ht 165.1 cm; Wt 77.4 kg
[~2019-03-09 14:54] MED LIST changes: +ACHD5005 PO; +CALC300T4 PO; +GUAI600T43 PO; +IBUP-30 PO; +PANT40TA3 PO; +POLY17PO6 PO; +PROM25TA14 PO
[2019-03-09] MEDS ORDERED: NS IV 1000 ML 1,000 ML IV SCH ×2 (15:34)
--- NOTE | 2019-03-09 15:39 | ED Abdominal Pain ---
General Stated Complaint: CANCER PT; LIVER PROBLEMS Source of Information: Patient Exam Limitations: No Limitations History of Present Illness Date Seen by Provider: Mar 09, 2019 Time Seen by Provider: 15:14 Initial Comments Patient presents ER report conveyance with significant other and chief complaint of abdominal pain, shortness of breath, cough, chills with no fever. He just got out of the hospital a day ago for similar abdominal pain although not as bad as today. He thought maybe there was a blocked common bile duct stent but seemed to be patent and his enzymes are improving so he was allowed to go home. Today he's chilling without fever, on chemotherapy for pancreatic cancer with new metastases to the liver. Allergies and Home Medications Allergies Coded Allergies: Penicillins (Verified Allergy, Intermediate, HIVES, 02/01/15) Home Medications Calcium Carbonate 300 Mg Tab.chew, 300 MG PO TID PRN for INDIGESTION, (Reported) Guaifenesin 600 Mg Tab.er.12h, 600 MG PO BID PRN for CONGESTION Prescribed by: AGNES HEARN on 03/08/19 1104 Hydrocodone Bit/Acetaminophen 1 Tab Tab, 1 TAB PO Q6H PRN for PAIN-MODERATE (4- 6) Prescribed by: AGNES HEARN on 03/08/19 1104 Ibuprofen 200 Mg Tablet, 400 MG PO BID, (Reported) TAKES 2 (200MG) TABLETS Pantoprazole Sodium 40 Mg Tablet.dr, 40 MG PO DAILY, (Reported) Polyethylene Glycol 3350 17 Gm Powd.pack, 17 GM PO DAILY PRN for CONSTIPATION- 1ST LINE Prescribed by: AGNES HEARN on 03/08/19 1104 Promethazine HCl 25 Mg Tablet, 25 MG PO Q6H PRN for NAUSEA/VOMITING-2ND LINE Prescribed by: AGNES HEARN on 03/08/19 1104 Patient Home Medication List Home Medication List Reviewed: Yes Review of Systems Review of Systems Constitutional: chills; No fever; malaise EENTM: No Blurred Vision, No Double Vision; Nose Congestion, Throat Pain Respiratory: Cough, Shortness of Air; Denies Wheezing Gastrointestinal: Denies Constipated, Denies Diarrhea, Denies Nausea; Poor Fluid Intake Genitourinary: Denies Burning, Denies Discharge Musculoskeletal: No back pain, No joint pain Skin: No pruritus, No rash Psychiatric/Neurological: Denies Headache, Denies Numbness, Denies Paresthesia Past Yiyytxf-Ampuok-Yoqdmb Hx Patient Social History Alcohol Use: Denies Use Recreational Drug Use: Yes Drug of Choice: CANNIBUS Smoking Status: Current Everyday Smoker Type Used: Cigarettes Recent Foreign Travel: No Contact w/Someone Who Travel: No Recent Hopitalizations: No Immunizations Up To Date Tetanus Booster (TDap): Unknown Seasonal Allergies Seasonal Allergies: No Past Medical History Surgeries: Yes (TUMOR REMOVAL TO FACE, PANCREATIC STENT) Respiratory: No Cardiac: No Neurological: No Genitourinary: No Gastrointestinal: No Gastroesophageal Reflux Musculoskeletal: No Endocrine: No HEENT: No Cancer: Yes Liver, Pancreatic Did You Recieve Any Treatments: Yes What Type of Treatment Did You: Chemotherapy Psychosocial: No Integumentary: No Blood Disorders: No Family Medical History Cancer, Diabetes Physical Exam Vital Signs Vital Signs - First Documented 03/09/19 15:08 Temp 36.8 Pulse 94 Resp 20 B/P (MAP) 115/71 (86) Pulse Ox 99 Capillary Refill : Height/Weight/BMI Height: 5'6.00" Weight: 165lbs. oz. 74.776239cc; 27.45 BMI Method:Stated General Appearance: WD/WN, mild distress HEENT: PERRL/EOMI, TM abnormal (R) (clear mucoid effusion without erythema or injection), TM abnormal (L), pharyngeal erythema; No tonsillar exudate Neck: non-tender, full range of motion, supple, normal inspection Respiratory: chest non-tender, lungs clear, normal breath sounds, no respiratory distress, no accessory muscle use Cardiovascular: normal peripheral pulses, regular rate, rhythm, tachycardia Peripheral Pulses: 2+ Dorsalis Pedis (R), 2+ Left Dors-Pedis (L) Gastrointestinal: normal bowel sounds, tenderness (quadrant and epigastric) Extremities: normal range of motion, non-tender, normal inspection, normal capillary refill Neurologic/Psychiatric: alert, oriented x 3 Skin: normal color, warm/dry Focused Exam Lactate Level 03/09/19 15:50: Lactic Acid Level 2.47*H Lactic Acid Level Laboratory Tests Test 03/09/19 15:50 Lactic Acid Level 2.47 MMOL/L (0.50-2.00) *H Progress/Results/Core Measures Results/Orders Lab Results Laboratory Tests Test 03/09/19 15:50 03/09/19 16:22 Range/Units White Blood Count 14.9 H 4.3-11.0 10^3/uL Red Blood Count 3.73 L 4.35-5.85 10^6/uL Hemoglobin 10.3 L 13.3-17.7 G/DL Hematocrit 33 L 40-54 % Mean Corpuscular Volume 87 80-99 FL Mean Corpuscular Hemoglobin 28 25-34 PG Mean Corpuscular Hemoglobin Concent 32 32-36 G/DL Red Cell Distribution Width 22.4 H 10.0-14.5 % Platelet Count 167 130-400 10^3/uL Mean Platelet Volume 10.2 7.4-10.4 FL Neutrophils (%) (Auto) 88 H 42-75 % Lymphocytes (%) (Auto) 4 L 12-44 % Monocytes (%) (Auto) 7 0-12 % Eosinophils (%) (Auto) 1 0-10 % Basophils (%) (Auto) 0 0-10 % Neutrophils # (Auto) 13.1 H 1.8-7.8 X 10^3 Lymphocytes # (Auto) 0.6 L 1.0-4.0 X 10^3 Monocytes # (Auto) 1.1 H 0.0-1.0 X 10^3 Eosinophils # (Auto) 0.1 0.0-0.3 10^3/uL Basophils # (Auto) 0.0 0.0-0.1 10^3/uL Neutrophils % (Manual) 77 % Lymphocytes % (Manual) 4 % Monocytes % (Manual) 7 % Eosinophils % (Manual) 0 % Basophils % (Manual) 0 % Band Neutrophils 12 % Poikilocytosis SLIGHT Anisocytosis SLIGHT Tear Drop Cells SLIGHT Elliptocytes SLIGHT Prothrombin Time 13.4 12.2-14.7 SEC INR Comment 1.0 0.8-1.4 Activated Partial Thromboplast Time 25 24-35 SEC Sodium Level 138 135-145 MMOL/L Potassium Level 3.8 3.6-5.0 MMOL/L Chloride Level 103 98-107 MMOL/L Carbon Dioxide Level 21 21-32 MMOL/L Anion Gap 14 5-14 MMOL/L Blood Urea Nitrogen 8 7-18 MG/DL Creatinine 0.79 0.60-1.30 MG/DL Estimat Glomerular Filtration Rate > 60 BUN/Creatinine Ratio 10 Glucose Level 109 H 70-105 MG/DL Lactic Acid Level 2.47 *H 0.50-2.00 MMOL/L Calcium Level 9.6 8.5-10.1 MG/DL Corrected Calcium 9.6 8.5-10.1 MG/DL Total Bilirubin 2.5 H 0.1-1.0 MG/DL Aspartate Amino Transf (AST/SGOT) 97 H 5-34 U/L Alanine Aminotransferase (ALT/SGPT) 141 H 0-55 U/L Alkaline Phosphatase 550 H 40-136 U/L Ammonia 17 11-32 UMOL/L Total Protein 7.5 6.4-8.2 GM/DL Albumin 4.0 3.2-4.5 GM/DL Amylase Level 118 25-125 U/L Lipase 69 8-78 U/L Urine Color YELLOW Urine Clarity CLEAR Urine pH 8.0 5-9 Urine Specific [place] 1.015 L 1.016-1.022 Urine Protein NEGATIVE NEGATIVE Urine Glucose (UA) NEGATIVE NEGATIVE Urine Ketones 2+ H NEGATIVE Urine Nitrite NEGATIVE NEGATIVE Urine Bilirubin 1+ H NEGATIVE Urine Urobilinogen 2.0 < = 1.0 MG/DL Urine Leukocyte Esterase NEGATIVE NEGATIVE Urine RBC (Auto) TRACE-L NEGATIVE Urine RBC 5-10 H /HPF Urine WBC NONE /HPF Urine Squamous Epithelial Cells RARE /HPF Urine Crystals NONE /LPF Urine Bacteria TRACE /HPF Urine Casts NONE /LPF Urine Mucus SMALL H /LPF Urine Culture Indicated CULTURE PENDING Micro Results Microbiology 03/09/19 Influenza Types A,B Antigen (KEARA) - Final, Complete My Orders Orders - JULIO CESAR MARCIAL Cbc With Automated Diff (03/09/19 15:34) Comprehensive Metabolic Panel (03/09/19 15:34) Blood Culture (03/09/19 15:34) Sputum Culture (03/09/19 15:34) Urinalysis (03/09/19 15:34) Urine Culture (03/09/19 15:34) Protime With Inr (03/09/19 15:34) Partial Thromboplastin Time (03/09/19 15:34) Chest 1 View, Ap/Pa Only (03/09/19 15:34) Ed Iv/Invasive Line Start (03/09/19 15:34) Ed Iv/Invasive Line Start (03/09/19 15:34) Vital Signs Adult Sepsis Patie Q15M (03/09/19 15:34) Ondansetron Injection (Zofran Injectio (03/09/19 15:45) O2 (03/09/19 15:34) Remove Rings In Anticipation O (03/09/19 15:34) Lactic Acid Analyzer (03/09/19 15:34) Influenza A And B Antigens (03/09/19 15:34) Ns Iv 1000 Ml (Sodium Chloride 0.9%) (03/09/19 15:34) Cefepime Injection (Maxipime Injection) (03/09/19 15:45) Ed Iv/Invasive Line Start (03/09/19 15:34) Ns Iv 1000 Ml (Sodium Chloride 0.9%) (03/09/19 15:34) Ct Abdomen/Pelvis W (03/09/19 15:34) Fentanyl Injection (Sublimaze Injection (03/09/19 15:45) Ketamine Syringe (Ed Only) (Ketamine Syr (03/09/19 15:45) Pantoprazole Injection (Protonix Injecti (03/09/19 15:45) Ammonia (03/09/19 15:35) Lipase (03/09/19 15:39) Amylase (03/09/19 15:39) Manual Differential (03/09/19 15:50) Iohexol Injection (Omnipaque 350 Mg/Ml 1 (03/09/19 16:30) Received Contrast (Hold Metformin- Contr (03/09/19 16:30) Sodium Chloride Flush (Catheter Flush Sy (03/09/19 16:30) Ns (Ivpb) (Sodium Chloride 0.9% Ivpb Bag (03/09/19 16:30) Medications Given in ED Current Medications Medications Dose Ordered Sig/Thai Route Start Time Stop Time Status Last Admin Dose Admin Cefepime HCl 1000 mg/Sterile Water 10 ml @ 200 mls/hr ONCE ONCE IV 03/09/19 15:45 03/09/19 15:50 DC 03/09/19 16:10 200 MLS/HR Fentanyl Citrate 50 mcg ONCE ONCE IVP 03/09/19 15:45 03/09/19 15:46 DC 03/09/19 16:08 50 MCG Iohexol 100 ml ONCE ONCE IV 03/09/19 16:30 03/09/19 16:31 DC 03/09/19 16:41 98 ML Ketamine HCl 25 mg ONCE ONCE IV 03/09/19 15:45 03/09/19 15:46 DC 03/09/19 16:15 25 MG Ondansetron HCl 4 mg PRN PRN IV 03/09/19 15:45 03/09/19 16:20 DC 03/09/19 16:05 4 MG Pantoprazole 40 mg ONCE ONCE IV 03/09/19 15:45 03/09/19 15:46 DC 03/09/19 16:08 40 MG Sodium Chloride 10 ml NEEDED PRN IV 03/09/19 16:30 03/09/19 16:41 10 ML Sodium Chloride 100 ml ONCE ONCE IV 03/09/19 16:30 03/09/19 16:31 DC 03/09/19 16:41 80 ML Vital Signs/I&O 03/09/19 15:08 Temp 36.8 Pulse 94 Resp 20 B/P (MAP) 115/71 (86) Pulse Ox 99 Progress Progress Note : Time: 17:43 Progress Note Septic workup and influenza reveals a moderate white count of about 15,000 with left shift and elevated lactate. CT and labs do not demonstrate bile duct obstruction. Cholangitis? No evidence of pancreatitis. He does endorse upper respiratory symptoms congestion throat is sore etc. Influenza was negative. He says is getting no relief from the hydrocodone's home however our fentanyl and ketamine has made a significant improvement in his right upper quadrant abdominal pain. Discussed palliative pain medicine. He is pre-contemplative for hospice at this time. Diagnostic Imaging Diagonstic Imaging: Xray Plain Films/CT/US/NM/MRI: chest (1v) Comments NAME: FREDY THOMSON [facility] REC#: [id number] PT STATUS: REG ER : 1965 PHYSICIAN: JULIO CESAR MARCIAL MD ADMIT DATE: 03/09/19/ER Signed POSDate of Exam:03/09/19 CHEST 1 VIEW, AP/PA ONLY INDICATION: Elevated liver enzymes, cancer. EXAMINATION: Portable chest at 4:00 p.m. FINDINGS: Left IJ Port-A-Cath tip projects over the SVC. Heart size and pulmonary vascularity are normal. Lungs are clear. There are no effusions or pneumothoraces. IMPRESSION: No acute abnormality in the chest. Dictated by: Dictated on workstation # [id number] Dict: 03/09/19 1606 Trans: 03/09/191643 [facility] [id number] Interpreted by: FREDY KERNS MD Electronically signed by: FREDY KERNS MD 03/09/191643 Reviewed: Reviewed by Me Diagonstic Imaging: CT (with IV contrast) Plain Films/CT/US/NM/MRI: abdomen, pelvis Comments NAME: FREDY THOMSON [facility] REC#: [id number] PT STATUS: REG ER : 1965 PHYSICIAN: JULIO CESAR MARCIAL MD ADMIT DATE: 03/09/19/ER Signed POSDate of Exam:03/09/19 CT ABDOMEN/PELVIS W PROCEDURE: CT abdomen and pelvis with contrast. TECHNIQUE: Multiple contiguous axial images were obtained through the abdomen and pelvis after administration of intravenous contrast. Auto Exposure Controls were utilized during the CT exam to meet ALARA standards for radiation dose reduction. INDICATION: Abdominal pain, FINDINGS: The recent CT abdomen/pelvis exam of 03/06/2018 noted numerous enhancing lesions throughout the liver. These are felt to be related to metastatic disease secondary to the patient's history of pancreatic carcinoma. There was also a common bile duct stent in place. Those findings are again evident on this study. On the previous exam, the common bile duct was distended by gas and there was gas throughout the biliary tree. On this study, however, most of the gas has resolved and there is now fluid within the dilated common bile duct and biliary tree. The stent itself seems to be in good position. The previous exam also noted scattered fluid-filled segments of small bowel and raise a question of enteritis. On this exam, there is still gas and fluid in both the large and small bowel. The fluid-filled segments of small bowel low in the pelvis seen previously have resolved. There is no sign of bowel obstruction, but there could still be an ileus present. The spleen, adrenals, kidneys, gallbladder, aorta, and inferior vena cava show no sign of an acute abnormality. The stomach is not well distended and consequently difficult to assess. There is no pelvic mass or free fluid collection noted. The urinary bladder and prostate gland are grossly unremarkable. The appendix is not well visualized, but there are no indirect signs of acute appendicitis. The bone windows show no sign of a fracture or of a destructive lesion. The images through the lung bases are unremarkable for pneumonia or for pleural effusion; however, there are a few small pulmonary nodules in each lower lobe. The largest of these is in the lingula and measures 1.1 cm. These portions of the lung were not included on the prior exam. IMPRESSION: 1. The common bile duct stent seen previously remains in good position. The gas within the common bile duct and the proximal biliary tree seen previously has been predominantly replaced by fluid. There is no obstruction of the stent. If further evaluation is desired, however, then ERCP would be recommended. 2. The fluid-filled segments of small bowel low in the pelvis noted on the prior exam have resolved; however, there is still gas in both the large and small bowel. This could be secondary to an ileus. There is no evidence for a bowel obstruction. 3. There are numerous metastatic lesions involving the liver again noted.. 4. There are also pulmonary nodules in each lung base. These should be considered neoplastic until proven otherwise as well. 5. These results were discussed with Dr. Marcial in the ER. Dictated by: Dictated on workstation # [id number] Dict: 03/09/191655 Trans: 03/09/191727 [id number] Interpreted by: KAY GOVEA MD Electronically signed by: KAY GOVEA MD 03/09/198 Reviewed: Reviewed by Me, Discussed w/Radiologist (Dr. Govea) Departure Communication (Admissions) Time/Spoke to Admitting Phy: 17:50 Discussed case lab imaging findings with Dr. Hearn. We discussed the uncertainty of the diagnosis and that the only symptoms arise from his upper respiratory symptoms. Suspect maybe he's having upper respiratory infection sinusitis versus other? Discussed putting him on Rocephin and observation for pain management and discussion of palliative management. She is okay with this. Impression Primary Impression: Sepsis Qualified Codes: A41.9 - Sepsis, unspecified organism Additional Impressions: Sinusitis, acute Qualified Codes: J01.00 - Acute maxillary sinusitis, unspecified History of malignant neoplasm of pancreas Disposition: ADMITTED INPATIENT Condition: Stable Admissions Decision to Admit Reason: Admit from ER (General) Decision to Admit/Date: Mar 09, 2019 Time/Decision to Admit Time: 17:49 Departure-Patient Inst. Referrals: FABIANO ELLIOTT MD (PCP/Family) Primary Care Physician JULIO CESAR MARCIAL Mar 09, 2019 15:39 POS
[2019-03-09] MEDS ORDERED: fentaNYL INJECTION 100 MCG/2 ML AMP IVP ONE (15:45)
[2019-03-09] MEDS ORDERED: CEFEPIME INJECTION 1,000 MG in WATER (STERILE) FOR INJECTION 10 ML IV ONE (15:45)
[2019-03-09] MEDS ORDERED: ONDANSETRON 4 MG/2 ML (SDV) Z0FRAN IV PRN ×2 (15:45→19:30)
[2019-03-09] MEDS ORDERED: KETAMINE/NaCl 50 MG/5 ML SYRINGE (ED ONLY) IV ONE (15:45)
[2019-03-09] MEDS ORDERED: PANTOPRAZOLE 40 MG (PROTONIX) VIAL IV ONE (15:45)
[2019-03-09 16:00] LABS: BASOPHILS % (AUTO) 0 % (0-10); EOSINOPHILS # (AUTO) 0.1 10^3/uL (0.0-0.3); EOSINOPHILS % (AUTO) 1 % (0-10); HEMATOCRIT 33 % (40-54); HEMOGLOBIN 10.3 G/DL (13.3-17.7); LYMPHOCYTES # (AUTO) 0.6 X 10^3 (1.0-4.0); LYMPHOCYTES % (AUTO) 4 % (12-44); MEAN CORPUSCULAR HEMOGLOBIN 28 PG (25-34); MEAN CORPUSCULAR HGB CONC 32 G/DL (32-36); MEAN CORPUSCULAR VOLUME 87 FL (80-99); MEAN PLATELET VOLUME 10.2 FL (7.4-10.4); MONOCYTES # (AUTO) 1.1 X 10^3 (0.0-1.0); MONOCYTES % (AUTO) 7 % (0-12); NEUTROPHILS # (AUTO) 13.1 X 10^3 (1.8-7.8); NEUTROPHILS % (AUTO) 88 % (42-75); PLATELET COUNT 167 10^3/uL (130-400); RED CELL DISTRIBUTION WIDTH 22.4 % (10.0-14.5); WHITE BLOOD COUNT 14.9 10^3/uL (4.3-11.0)
--- NOTE | 2019-03-09 16:12 | Diagnostic Imaging Report ---
INDICATION: Elevated liver enzymes, cancer. EXAMINATION: Portable chest at 4:00 p.m. FINDINGS: Left IJ Port-A-Cath tip projects over the SVC. Heart size and pulmonary vascularity are normal. Lungs are clear. There are no effusions or pneumothoraces. IMPRESSION: No acute abnormality in the chest. Dictated by: Dictated on workstation # [id number]
[2019-03-09 16:18] LABS: PROTHROMBIN TIME PATIENT 13.4 SEC (12.2-14.7)
[2019-03-09 16:20] LABS: ALANINE AMINOTRANSFERASE 141 U/L (0-55); ALKALINE PHOSPHATASE 550 U/L (40-136); AMMONIA 17 UMOL/L (11-32); AMYLASE 118 U/L (25-125); BILIRUBIN,TOTAL 2.5 MG/DL (0.1-1.0); BUN/CREATININE RATIO 10; CALCIUM 9.6 MG/DL (8.5-10.1); CARBON DIOXIDE 21 MMOL/L (21-32); CHLORIDE 103 MMOL/L (98-107); CREATININE SERUM 0.79 MG/DL (0.60-1.30); GFR ESTIMATED > 60; GLUCOSE 109 MG/DL (70-105); LIPASE 69 U/L (8-78); POTASSIUM 3.8 MMOL/L (3.6-5.0); SODIUM 138 MMOL/L (135-145); TOTAL PROTEIN 7.5 GM/DL (6.4-8.2)
[2019-03-09 16:28] LABS: CLARITY,URINE CLEAR; COLOR,URINE YELLOW; GLUCOSE, URINE (UA) NEGATIVE (NEGATIVE); KETONES,URINE 2+ (NEGATIVE); LEUKOCYTE ESTERASE ,URINE NEGATIVE (NEGATIVE); NITRITE,URINE NEGATIVE (NEGATIVE); PROTEIN,URINE NEGATIVE (NEGATIVE)
[2019-03-09] MEDS ORDERED: CATHETER FLUSH 10 ML SYR IV PRN ×2 (16:30→19:30)
[2019-03-09] MEDS ORDERED: HOLD METFORMIN - RECEIVED CONTRAST 20 ML VIAL IV SCH (16:30)
[2019-03-09] MEDS ORDERED: NS 100 ML (IVPB) BAG IV ONE (16:30)
[2019-03-09] MEDS ORDERED: IOHEXOL 350 MG/ML 100 ML (OMNIPAQUE 350) VIAL IV ONE (16:30)
[2019-03-09 17:00] LABS: BACTERIA,URINE TRACE /HPF; BILIRUBIN,URINE 1+ (NEGATIVE); SQUAMOUS EPITHELIAL CELL,UR RARE /HPF
[2019-03-09 17:04] LABS: BAND NEUTROPHILS 12 %; BASOPHILS % (MANUAL) 0 %; EOSINOPHILS % (MANUAL) 0 %; LYMPHOCYTES % (MANUAL) 4 %; MONOCYTES % (MANUAL) 7 %; NEUTROPHILS % (MANUAL) 77 %
[2019-03-09 17:05] LABS: ANISOCYTOSIS SLIGHT; ELLIPT/OVALOCYTES SLIGHT; POIKILOCYTOSIS SLIGHT; TEAR DROP CELLS SLIGHT
--- NOTE | 2019-03-09 17:19 | Diagnostic Imaging Report ---
PROCEDURE: CT abdomen and pelvis with contrast. TECHNIQUE: Multiple contiguous axial images were obtained through the abdomen and pelvis after administration of intravenous contrast. Auto Exposure Controls were utilized during the CT exam to meet ALARA standards for radiation dose reduction. INDICATION: Abdominal pain, FINDINGS: The recent CT abdomen/pelvis exam of 03/06/2018 noted numerous enhancing lesions throughout the liver. These are felt to be related to metastatic disease secondary to the patient's history of pancreatic carcinoma. There was also a common bile duct stent in place. Those findings are again evident on this study. On the previous exam, the common bile duct was distended by gas and there was gas throughout the biliary tree. On this study, however, most of the gas has resolved and there is now fluid within the dilated common bile duct and biliary tree. The stent itself seems to be in good position. The previous exam also noted scattered fluid-filled segments of small bowel and raise a question of enteritis. On this exam, there is still gas and fluid in both the large and small bowel. The fluid-filled segments of small bowel low in the pelvis seen previously have resolved. There is no sign of bowel obstruction, but there could still be an ileus present. The spleen, adrenals, kidneys, gallbladder, aorta, and inferior vena cava show no sign of an acute abnormality. The stomach is not well distended and consequently difficult to assess. There is no pelvic mass or free fluid collection noted. The urinary bladder and prostate gland are grossly unremarkable. The appendix is not well visualized, but there are no indirect signs of acute appendicitis. The bone windows show no sign of a fracture or of a destructive lesion. The images through the lung bases are unremarkable for pneumonia or for pleural effusion; however, there are a few small pulmonary nodules in each lower lobe. The largest of these is in the lingula and measures 1.1 cm. These portions of the lung were not included on the prior exam. IMPRESSION: 1. The common bile duct stent seen previously remains in good position. The gas within the common bile duct and the proximal biliary tree seen previously has been predominantly replaced by fluid. There is no obstruction of the stent. If further evaluation is desired, however, then ERCP would be recommended. 2. The fluid-filled segments of small bowel low in the pelvis noted on the prior exam have resolved; however, there is still gas in both the large and small bowel. This could be secondary to an ileus. There is no evidence for a bowel obstruction. 3. There are numerous metastatic lesions involving the liver again noted.. 4. There are also pulmonary nodules in each lung base. These should be considered neoplastic until proven otherwise as well. 5. These results were discussed with Dr. Marcial in the ER. Dictated by: Dictated on workstation # [id number]
[2019-03-09 19:23] VITALS: BP 126/75
[2019-03-09] MEDS ORDERED: ANTACID SUSP 30 ML UDC (MYLANTA) PO PRN (19:30)
[2019-03-09] MEDS ORDERED: PROMETHAZINE 25 MG (PHENERGAN) TAB PO PRN (19:30)
[2019-03-09] MEDS ORDERED: LORazepam INJ 2 MG/ML (ATIVAN) VIAL IV PRN (19:45)
[2019-03-09] MEDS: LACTATED RINGERS 1,000 ML IV SCH (19:49)
[2019-03-09] MEDS: cefTRIAXone 1,000 MG/SWFI 10 ML IV PUSH IV SCH ×2 (19:49)
[2019-03-09] MEDS: fentaNYL INJECTION 100 MCG/2 ML AMP IV PRN (20:12)
--- NOTE | 2019-03-09 20:54 | NUR ---
FREDY THOMSON admitted to room 410-1, with an admitting diagnosis of SEPSIS, SINITIS, URI, NEOPLASM, PAIN MANAGEMENT, on 03/09/19 from ED via , accompanied by STAFF.FRDEY THOMSON introduced to surroundings, call light, bed controls, phone, TV, temperature control, lights, meal times, smoking policy, visitor policy, side rail policy, bathrooms and showers. Patient Rights given to patient in the handbook. FREDY THOMSON verbalizes understanding that [facility] is not responsible for the loss or damage to any personal effects or valuables that are kept in the patients posession during their hospitalization. FREDY THOMSON verbalizes understanding of Interdisciplinary Patient Education. Patient and/or family were informed about the Rapid Response Team and its purpose.
[2019-03-09] MEDS: HYDROcodone/APAP 5 MG/325 MG (LORTAB) TAB PO PRN (21:22)
[2019-03-10] VITALS: BP 109/56
[2019-03-10] MEDS: LACTATED RINGERS 1,000 ML IV SCH ×3 (03:56→20:34)
[2019-03-10] MEDS: fentaNYL INJECTION 100 MCG/2 ML AMP IV PRN ×3 (03:56→14:51)
[2019-03-10 04:30] VITALS: BP 80/52
[2019-03-10 04:41] LABS: BASOPHILS % (AUTO) 0 % (0-10); EOSINOPHILS # (AUTO) 0.2 10^3/uL (0.0-0.3); EOSINOPHILS % (AUTO) 2 % (0-10); HEMATOCRIT 29 % (40-54); HEMOGLOBIN 9.1 G/DL (13.3-17.7); LYMPHOCYTES # (AUTO) 0.7 X 10^3 (1.0-4.0); LYMPHOCYTES % (AUTO) 7 % (12-44); MEAN CORPUSCULAR HEMOGLOBIN 28 PG (25-34); MEAN CORPUSCULAR HGB CONC 32 G/DL (32-36); MEAN CORPUSCULAR VOLUME 88 FL (80-99); MEAN PLATELET VOLUME 10.3 FL (7.4-10.4); MONOCYTES # (AUTO) 0.9 X 10^3 (0.0-1.0); MONOCYTES % (AUTO) 9 % (0-12); NEUTROPHILS # (AUTO) 8.3 X 10^3 (1.8-7.8); NEUTROPHILS % (AUTO) 82 % (42-75); PLATELET COUNT 135 10^3/uL (130-400); RED CELL DISTRIBUTION WIDTH 22.5 % (10.0-14.5); WHITE BLOOD COUNT 10.1 10^3/uL (4.3-11.0)
[2019-03-10 05:17] LABS: ALANINE AMINOTRANSFERASE 129 U/L (0-55); ALBUMIN 3.2 GM/DL (3.2-4.5); ALKALINE PHOSPHATASE 494 U/L (40-136); BILIRUBIN,TOTAL 2.7 MG/DL (0.1-1.0); BUN/CREATININE RATIO 9; CALCIUM 8.9 MG/DL (8.5-10.1); CARBON DIOXIDE 22 MMOL/L (21-32); CHLORIDE 108 MMOL/L (98-107); CREATININE SERUM 0.82 MG/DL (0.60-1.30); GFR ESTIMATED > 60; GLUCOSE 103 MG/DL (70-105); POTASSIUM 4.1 MMOL/L (3.6-5.0); SODIUM 140 MMOL/L (135-145); TOTAL PROTEIN 5.9 GM/DL (6.4-8.2)
[2019-03-10 08:20] VITALS: BP 93/58
[2019-03-10] MEDS: HYDROcodone/APAP 5 MG/325 MG (LORTAB) TAB PO PRN ×2 (08:39→14:56)
[2019-03-10] MEDS: PANTOPRAZOLE 40 MG (PROTONIX) TAB PO SCH (08:39)
--- NOTE | 2019-03-10 09:08 | NUR ---
WENT OVER THE MED LIST WITH THE PATIENT, HE STATES NOTHING HAS CHANGED SINCE HE WAS RECENTLY DISCHARGED AND HE WAS ABLE TO GET THE NEW SCRIPTS THAT WERE WRITTEN AT HIS LAST DISCHARGE. I REVIEWED MED REC IT WAS ORDERED UPON HIS LAST DISCHARGE.
[2019-03-10 11:51] VITALS: BP 100/56
--- NOTE | 2019-03-10 12:00 | History & Physical ---
HPI History of Present Illness: 53 yo male with metastatic pancreatic cancer and history of biliary stenting was recently discharged after brief stay for pain. After going home he took oral hydrocodone but it did not manage his pain and he continued to feel worse. He denies other symptoms except congestion that he has had for some time. Since admission, he has had blood dripping out of penis after urination. Date seen by provider: Mar 10, 2019 Time Seen by Provider: 06:09 Attending Physician Agnes Lyons MD PCP Suzanne Noonan MD Consult Date of Admission Mar 09, 2019 at 18:00 Home Medications Home Medications Reviewed patient Home Medication Reconciliation performed by pharmacy medication reconciliations salvage engineering technician and/or nursing. Patients Allergies have been reviewed. Allergies Coded Allergies: Penicillins (Verified Allergy, Intermediate, HIVES, 02/01/15) [id number] Hx Patient Social History Alcohol Use: Denies Use Recreational Drug Use: Yes Drug of Choice: CANNIBUS Smoking Status: Current Everyday Smoker Type Used: Cigarettes Recent Foreign Travel: No Contact w/other who traveled: No Recent Hopitalizations: No Recent Infectious Disease Expo: No Immunizations Up To Date Tetanus Booster (TDap): Unknown Past Medical History PMHx: Pancreatic cancer Bile duct stent x 2 Family Medical History Significant Family History: Cancer, Diabetes Review of Systems ([facility]) Constitutional: No fever EENTM: nose congestion Cardiovascular: No chest pain Gastrointestinal: RUQ, abdominal pain Genitourinary: hematuria Musculoskeletal: back pain Skin: no symptoms reported Psychiatric/Neurological: No Symptoms Reported Reviewed Test Results Reviewed Test Results Lab Laboratory Tests Test 03/09/19 15:50 03/09/19 16:22 03/09/19 18:55 03/10/19 04:05 Range/Units White Blood Count 14.9 H 10.1 4.3-11.0 10^3/uL Red Blood Count 3.73 L 3.27 L 4.35-5.85 10^6/uL Hemoglobin 10.3 L 9.1 L 13.3-17.7 G/DL Hematocrit 33 L 29 L 40-54 % Mean Corpuscular Volume 87 88 80-99 FL Mean Corpuscular Hemoglobin 28 28 25-34 PG Mean Corpuscular Hemoglobin Concent 32 32 32-36 G/DL Red Cell Distribution Width 22.4 H 22.5 H 10.0-14.5 % Platelet Count 167 135 130-400 10^3/uL Mean Platelet Volume 10.2 10.3 7.4-10.4 FL Neutrophils (%) (Auto) 88 H 82 H 42-75 % Lymphocytes (%) (Auto) 4 L 7 L 12-44 % Monocytes (%) (Auto) 7 9 0-12 % Eosinophils (%) (Auto) 1 2 0-10 % Basophils (%) (Auto) 0 0 0-10 % Neutrophils # (Auto) 13.1 H 8.3 H 1.8-7.8 X 10^3 Lymphocytes # (Auto) 0.6 L 0.7 L 1.0-4.0 X 10^3 Monocytes # (Auto) 1.1 H 0.9 0.0-1.0 X 10^3 Eosinophils # (Auto) 0.1 0.2 0.0-0.3 10^3/uL Basophils # (Auto) 0.0 0.0 0.0-0.1 10^3/uL Neutrophils % (Manual) 77 % Lymphocytes % (Manual) 4 % Monocytes % (Manual) 7 % Eosinophils % (Manual) 0 % Basophils % (Manual) 0 % Band Neutrophils 12 % Poikilocytosis SLIGHT Anisocytosis SLIGHT Tear Drop Cells SLIGHT Elliptocytes SLIGHT Prothrombin Time 13.4 12.2-14.7 SEC INR Comment 1.0 0.8-1.4 Activated Partial Thromboplast Time 25 24-35 SEC Sodium Level 138 140 135-145 MMOL/L Potassium Level 3.8 4.1 3.6-5.0 MMOL/L Chloride Level 103 108 H 98-107 MMOL/L Carbon Dioxide Level 21 22 21-32 MMOL/L Anion Gap 14 10 5-14 MMOL/L Blood Urea Nitrogen 8 7 7-18 MG/DL Creatinine 0.79 0.82 0.60-1.30 MG/DL Estimat Glomerular Filtration Rate > 60 > 60 BUN/Creatinine Ratio 10 9 Glucose Level 109 H 103 70-105 MG/DL Lactic Acid Level 2.47 *H 0.58 0.50-2.00 MMOL/L Calcium Level 9.6 8.9 8.5-10.1 MG/DL Corrected Calcium 9.6 9.5 8.5-10.1 MG/DL Total Bilirubin 2.5 H 2.7 H 0.1-1.0 MG/DL Aspartate Amino Transf (AST/SGOT) 97 H 99 H 5-34 U/L Alanine Aminotransferase (ALT/SGPT) 141 H 129 H 0-55 U/L Alkaline Phosphatase 550 H 494 H 40-136 U/L Ammonia 17 11-32 UMOL/L Total Protein 7.5 5.9 L 6.4-8.2 GM/DL Albumin 4.0 3.2 3.2-4.5 GM/DL Amylase Level 118 25-125 U/L Lipase 69 8-78 U/L Urine Color YELLOW Urine Clarity CLEAR Urine pH 8.0 5-9 Urine Specific [place] 1.015 L 1.016-1.022 Urine Protein NEGATIVE NEGATIVE Urine Glucose (UA) NEGATIVE NEGATIVE Urine Ketones 2+ H NEGATIVE Urine Nitrite NEGATIVE NEGATIVE Urine Bilirubin 1+ H NEGATIVE Urine Urobilinogen 2.0 < = 1.0 MG/DL Urine Leukocyte Esterase NEGATIVE NEGATIVE Urine RBC (Auto) TRACE-L NEGATIVE Urine RBC 5-10 H /HPF Urine WBC NONE /HPF Urine Squamous Epithelial Cells RARE /HPF Urine Crystals NONE /LPF Urine Bacteria TRACE /HPF Urine Casts NONE /LPF Urine Mucus SMALL H /LPF Urine Culture Indicated CULTURE PENDING Radiology CT abdomen/pelvis 03/09/19: IMPRESSION: 1. The common bile duct stent seen previously remains in good position. The gas within the common bile duct and the proximal biliary tree seen previously has been predominantly replaced by fluid. There is no obstruction of the stent. If further evaluation is desired, however, then ERCP would be recommended. 2. The fluid-filled segments of small bowel low in the pelvis noted on the prior exam have resolved; however, there is still gas in both the large and small bowel. This could be secondary to an ileus. There is no evidence for a bowel obstruction. 3. There are numerous metastatic lesions involving the liver again noted.. 4. There are also pulmonary nodules in each lung base. These should be c onsidered neoplastic until proven otherwise as well. Physical Exam-([facility]) Physical Exam Vital Signs VS - Last 72 Hours, by Label POS 03/09/19 03/09/19 03/09/19 03/09/19 15:08 19:11 19:23 19:30 Temp 36.8 36.8 38.7 Pulse 94 89 87 Resp 20 18 18 B/P (MAP) 115/71 (86) 101/61 (86) 126/75 Pulse Ox 99 99 98 O2 Delivery Room Air Room Air Room Air 03/10/19 03/10/19 03/10/19 03/10/19 00:00 04:30 08:00 08:20 Temp 38.2 36.3 37.0 Pulse 79 63 70 Resp 20 20 18 B/P (MAP) 109/56 (73) 80/52 (61) 93/58 (70) Pulse Ox 96 96 96 96 O2 Delivery Room Air Room Air Simple Mask Simple Mask 03/10/19 11:51 Temp 36.4 Pulse 66 Resp 16 B/P (MAP) 100/56 (71) Pulse Ox 96 O2 Delivery Room Air Capillary Refill : Less Than 3 SecondsGreater Than 3 Seconds General Appearance: WD/WN, no apparent distress Respiratory: lungs clear, normal breath sounds Cardiovascular: regular rate, rhythm, no murmur Gastrointestinal: normal bowel sounds, guarding, tenderness (RUQ) Extremities: no pedal edema Neurologic/Psychiatric: alert, normal mood/affect Skin: normal color, warm/dry Assessment/Plan Assessment/Plan Admission Status: Inpatient Order (span 2 midnights) Reason for Inpatient Admission: Severe uncontrolled pain with metastatic cancer complicated by sepsis, will require 2 nights at least for recovery. (1) Uncontrolled pain Status: Acute Assessment & Plan: Fentanyl IV prn, will monitor use over 24 hours and convert to oral to try to manage outpatient. (2) History of malignant neoplasm of pancreas Status: Acute (3) Sinusitis, acute Status: Acute Qualifiers: Qualified Codes: J01.00 - Acute maxillary sinusitis, unspecified (4) Sepsis Status: Acute Assessment & Plan: Unclear etiology, urine versus sinus infection. Ceftriaxone. Qualifiers: Qualified Codes: A41.9 - Sepsis, unspecified organism (5) DVT prophylaxis Status: Acute Assessment & Plan: Enoxaparin (6) Hematuria Status: Acute Assessment & Plan: If urine culture negative, discuss with Onc to see if could be chemo related, consider consult Urology. Clinical Quality Measures DVT/VTE Risk/Contraindication: Risk Factor Score Per Nursin RFS Level Per Nursing on Admit: 4+=Very High AGNES LYONS MD Mar 10, 2019 12:00 POS
[2019-03-10] MEDS ORDERED: NON-FORMULARY MEDICATION 1 EA EA (Calcium Carbonate (Tums) 300 MG) PO PRN (12:15)
[2019-03-10] MEDS ORDERED: NON-FORMULARY MEDICATION 1 EA EA (Polyethylene Glycol 3350 (Miralax) 17 GM) PO PRN (12:15)
[2019-03-10] MEDS ORDERED: guaiFENesin (MUCINEX) 600 MG TAB PO PRN (12:15)
[2019-03-10] MEDS ORDERED: PROMETHAZINE 25 MG (PHENERGAN) TAB PO PRN (12:15)
[2019-03-10] MEDS ORDERED: CALCIUM CARBONATE 500 MG (TUMS) TAB.CHEW PO PRN (12:30)
--- NOTE | 2019-03-10 12:33 | Diagnostic Imaging Report ---
INDICATION: Pancreatic neoplasm. EXAMINATION: PA and lateral chest. FINDINGS: There is a left IJ Port-A-Cath with tip projecting over the SVC. Heart size and pulmonary vascularity are normal. Lungs are clear. There are no effusions or pneumothoraces. IMPRESSION: Negative chest. Dictated by: Dictated on workstation # [id number]
[2019-03-10] MEDS: ENOXAPARIN 40 MG/0.4 ML (LOVENOX) SYR SQ SCH (12:36)
[2019-03-10 15:15] VITALS: BP 106/74
[2019-03-10] MEDS ORDERED: NS IV 1000 ML 1,000 ML IV SCH (15:40)
[2019-03-10] MEDS ORDERED: ONDANSETRON 4 MG/2 ML (SDV) Z0FRAN IV PRN (15:45)
[2019-03-10] MEDS ORDERED: diphenhydrAMINE 50 MG/ML INJ (BENADRYL) IV PRN (15:45)
[2019-03-10] MEDS ORDERED: NALOXONE 0.4 MG/ML 1 ML (NARCAN) VIAL IV PRN (15:45)
[2019-03-10] MEDS: fentaNYL INJECTION 1,000 MCG in NS (IVPB) 80 ML IV SCH (17:01)
[2019-03-10] MEDS: cefTRIAXone 1,000 MG/SWFI 10 ML IV PUSH IV SCH ×2 (18:40)
[2019-03-10] MEDS: IBUPROFEN TABLET 200 MG TAB PO SCH (18:40)
[2019-03-10 19:52] VITALS: BP 118/64
[2019-03-10] MEDS ORDERED: NON-FORMULARY MEDICATION 1 EA EA (Ibuprofen (Advil) 400 MG) PO SCH (21:00)
[2019-03-11] VITALS: BP 119/75
[2019-03-11 04:00] VITALS: BP 115/69
[2019-03-11] MEDS: LACTATED RINGERS 1,000 ML IV SCH ×3 (04:23→20:39)
[2019-03-11 05:14] LABS: BASOPHILS % (AUTO) 0 % (0-10); EOSINOPHILS # (AUTO) 0.3 10^3/uL (0.0-0.3); EOSINOPHILS % (AUTO) 3 % (0-10); HEMATOCRIT 29 % (40-54); HEMOGLOBIN 9.3 G/DL (13.3-17.7); LYMPHOCYTES # (AUTO) 0.8 X 10^3 (1.0-4.0); LYMPHOCYTES % (AUTO) 8 % (12-44); MEAN CORPUSCULAR HEMOGLOBIN 28 PG (25-34); MEAN CORPUSCULAR HGB CONC 32 G/DL (32-36); MEAN CORPUSCULAR VOLUME 88 FL (80-99); MEAN PLATELET VOLUME 10.3 FL (7.4-10.4); MONOCYTES # (AUTO) 1.1 X 10^3 (0.0-1.0); MONOCYTES % (AUTO) 11 % (0-12); NEUTROPHILS # (AUTO) 8.3 X 10^3 (1.8-7.8); NEUTROPHILS % (AUTO) 79 % (42-75); PLATELET COUNT 145 10^3/uL (130-400); RED CELL DISTRIBUTION WIDTH 22.8 % (10.0-14.5); WHITE BLOOD COUNT 10.5 10^3/uL (4.3-11.0)
[2019-03-11 06:08] LABS: ALANINE AMINOTRANSFERASE 113 U/L (0-55); ALBUMIN 3.2 GM/DL (3.2-4.5); ALKALINE PHOSPHATASE 462 U/L (40-136); BILIRUBIN,TOTAL 4.1 MG/DL (0.1-1.0); BUN/CREATININE RATIO 11; CALCIUM 8.9 MG/DL (8.5-10.1); CARBON DIOXIDE 22 MMOL/L (21-32); CHLORIDE 107 MMOL/L (98-107); CREATININE SERUM 0.72 MG/DL (0.60-1.30); GFR ESTIMATED > 60; GLUCOSE 101 MG/DL (70-105); SODIUM 138 MMOL/L (135-145); TOTAL PROTEIN 6.2 GM/DL (6.4-8.2)
[2019-03-11 08:00] VITALS: BP 119/74
[2019-03-11] MEDS: SENNA W/DOCUSATE (SENOKOT S) TABLET PO SCH (08:13)
[2019-03-11] MEDS: PANTOPRAZOLE 40 MG (PROTONIX) TAB PO SCH (08:13)
[2019-03-11] MEDS: IBUPROFEN TABLET 200 MG TAB PO SCH ×2 (08:14→17:01)
[2019-03-11] MEDS: HYDROcodone/APAP 5 MG/325 MG (LORTAB) TAB PO PRN (08:15)
[2019-03-11] MEDS ORDERED: PANTOPRAZOLE 40 MG (PROTONIX) TAB PO SCH (09:00)
--- NOTE | 2019-03-11 11:27 | Progress Note - Hospitalist ---
Subjective HPI/CC On Admission Date Seen by Provider: Mar 11, 2019 Time Seen by Provider: 11:00 Subjective/Events-last exam patient reports some improvement in abdominal pain on fentanyl SOLUTIONS DEVELOPMENT ANALYST. No chills or fever reported stable mild cough with clear sputum. Focused Exam Lactate Level 03/09/19 15:50: Lactic Acid Level 2.47*H 03/09/19 18:55: Lactic Acid Level 0.58 Objective Exam Vital Signs Vital Signs Date Time Temp Pulse Resp B/P (MAP) Pulse Ox O2 Delivery O2 Flow Rate FiO2 03/11/19 04:00 36.5 60 22 115/69 (84) 98 Room Air Capillary Refill : Less Than 3 SecondsGreater Than 3 Seconds General Appearance: No Apparent Distress Respiratory: Chest Non Tender, Lungs Clear, Normal Breath Sounds, No Accessory Muscle Use, No Respiratory Distress Cardiovascular: Regular Rate, Rhythm, No Edema, No Gallop, No JVD, No Murmur, Normal Peripheral Pulses Gastrointestinal: Normal Bowel Sounds, No Organomegaly, Soft, Tenderness (right upper quadrant with guarding) Results/Procedures Lab Laboratory Tests 03/11/19 05:07 Patient resulted labs reviewed. Assessment/Plan Assessment and Plan Assess & Plan/Chief Complaint 1. Klebsiella pneumonia sepsis suspect biliary tract/ascending cholangitis secondary to pancreatic cancer with biliary tract stenting. continue Rocephin 2. Abdominal pain secondary to number 1 and pancreatic cancer continue SOLUTIONS DEVELOPMENT ANALYST Clinical Quality Measures DVT/VTE Risk/Contraindication: Risk Factor Score Per Nursin RFS Level Per Nursing on Admit: 4+=Very High ANEL ROSALES MD Mar 11, 2019 11:27 POS
[2019-03-11] MEDS: ENOXAPARIN 40 MG/0.4 ML (LOVENOX) SYR SQ SCH (12:36)
[2019-03-11 15:59] VITALS: BP 112/62
[2019-03-11] MEDS: cefTRIAXone 1,000 MG/SWFI 10 ML IV PUSH IV SCH ×2 (18:27)
[2019-03-11 20:29] VITALS: BP 130/80
[2019-03-11] MEDS: POLYETHYLENE GLYCOL 17 GM (MIRALAX) PACK PO PRN (20:40)
[2019-03-12] VITALS: BP 119/72
[2019-03-12] MEDS: LACTATED RINGERS 1,000 ML IV SCH ×3 (02:24→20:19)
[2019-03-12] MEDS: IBUPROFEN TABLET 200 MG TAB PO SCH ×2 (06:37→17:50)
[2019-03-12] MEDS: HYDROcodone/APAP 5 MG/325 MG (LORTAB) TAB PO PRN ×3 (06:37→17:50)
[2019-03-12] MEDS: PANTOPRAZOLE 40 MG (PROTONIX) TAB PO SCH (07:49)
[2019-03-12] MEDS: SENNA W/DOCUSATE (SENOKOT S) TABLET PO SCH ×2 (07:49→20:18)
[2019-03-12 08:00] VITALS: BP 128/78
[2019-03-12] MEDS ORDERED: FLEET ENEMA ADULT 1 EA BTL PR PRN (08:45)
[2019-03-12] MEDS: POLYETHYLENE GLYCOL 17 GM (MIRALAX) PACK PO PRN (08:57)
--- NOTE | 2019-03-12 09:03 | NUR ---
C/O OF CONSTIPATION WITH INCREASED ABD. PAIN. DR. ROSALES NOTIFIED. NEW ORDER'S NOTED. FLEETS ENEMA GIVEN RECTALLY. MISTI. WELL. HAD LARGE FORMED BROWN BM AFTER ENEMA GIVEN.
--- NOTE | 2019-03-12 11:03 | Progress Note - Hospitalist ---
Subjective HPI/CC On Admission Date Seen by Provider: Mar 12, 2019 Time Seen by Provider: 10:00 Subjective/Events-last exam Patient reports less abdominal pain after having enema-induced bowel movement for constipation. He still does report right upper quadrant abdominal pain but denies night sweats chills fever nausea or vomiting. He has been tolerating solids and reports he's feeling a little stronger. Focused Exam Lactate Level 03/09/19 15:50: Lactic Acid Level 2.47*H 03/09/19 18:55: Lactic Acid Level 0.58 Objective Exam Vital Signs Vital Signs Date Time Temp Pulse Resp B/P (MAP) Pulse Ox O2 Delivery O2 Flow Rate FiO2 03/12/19 08:00 36.7 66 18 128/78 (95) 97 Room Air Capillary Refill : Less Than 3 SecondsGreater Than 3 Seconds General Appearance: No Apparent Distress Respiratory: Chest Non Tender, Lungs Clear, Normal Breath Sounds, No Accessory Muscle Use, No Respiratory Distress Cardiovascular: Regular Rate, Rhythm, No Edema, No Gallop, No JVD, No Murmur, Normal Peripheral Pulses Gastrointestinal: Soft, Other (decreased right upper quadrant pain to palpation compared to yesterday there continues to be no evidence for distention with normal bowel sounds.) Results/Procedures Lab Patient resulted labs reviewed. Assessment/Plan Assessment and Plan Assess & Plan/Chief Complaint 1. Klebsiella pneumonia sepsis suspect biliary tract/ascending cholangitis secondary to pancreatic cancer with biliary tract stenting. continue Rocephin 2. Abdominal pain secondary to number 1 and pancreatic cancer continue TRESTLE MECHANIC but will initiate MS Contin today 30 mg twice a day continue when necessary fentanyl via TRESTLE MECHANIC today and consider switch to IR oral morphine for breakthrough pain tomorrow. We'll repeat CBC and CMP in the morning considering early discharge next week. We'll put consult in for Dr. Hardy for tomorrow. Clinical Quality Measures DVT/VTE Risk/Contraindication: Risk Factor Score Per Nursin RFS Level Per Nursing on Admit: 4+=Very High ANEL ROSALES MD Mar 12, 2019 11:03 POS
[2019-03-12] MEDS ORDERED: morphine ER 30 MG (MS CONTIN) TAB PO ONE (11:15)
[2019-03-12] MEDS ORDERED: SENNA W/DOCUSATE (SENOKOT S) TABLET PO ONE (11:15)
[2019-03-12] MEDS: ENOXAPARIN 40 MG/0.4 ML (LOVENOX) SYR SQ SCH (12:05)
--- NOTE | 2019-03-12 14:02 | Consultation ---
History of Present Illness History of Present Illness Patient Consulted On(miguelina/time) 03/12/19 13:55 Date Seen by Provider: Mar 12, 2019 Time Seen by Provider: 13:56 History of Present Illness Mr. Doss is a 53 yo male with metastatic pancreatic cancer who was recently started on palliative chemotherapy with gemcitabine and nab-paclitaxel in early January 2019. He had a biliary stent exchanged with a metal stent in mid December. He did not complete his 3rd week of cycle 2 before he was admitted to the hospital on 03/06/19 with severe abdominal. He was presumed to have acute pancreatitis at the time due to mildly elevated amylase, lipase and LFTs, but those enzymes trended down and pain improved rapidly, so he was discharged on 03/08/19. On the evening of discharge, pain returned with nausea and vomiting. By the next morning it has worsened drastically. He denied drinking any alcohol. He was readmitted on 03/09/19 with fever and hyperbilirubinemia, which has been worsening since admission. Blood cultures came back positive x2 for essentially pansensitive Klebsiella pneumoniae (resistant only to ampicillin). He is currently on ceftriaxone, fentanyl SINTERING PRESS OPERATOR, and extended release morphine. Pain in the right abdomen is rated at 7/10 and he has only recently had good bowel movements. Allergies and Home Medications Allergies Coded Allergies: Penicillins (Verified Allergy, Intermediate, HIVES, 02/01/15) Home Medications Calcium Carbonate 300 Mg Tab.chew, 300 MG PO TID PRN for INDIGESTION, (Reported) Guaifenesin 600 Mg Tab.er.12h, 600 MG PO BID PRN for CONGESTION Prescribed by: AGNES HEARN on 03/08/19 1104 Hydrocodone Bit/Acetaminophen 1 Tab Tab, 1 TAB PO Q6H PRN for PAIN-MODERATE (4- 6) Prescribed by: AGNES HEARN on 03/08/19 1104 Ibuprofen 200 Mg Tablet, 400 MG PO BID, (Reported) TAKES 2 (200MG) TABLETS Pantoprazole Sodium 40 Mg Tablet.dr, 40 MG PO DAILY, (Reported) Polyethylene Glycol 3350 17 Gm Powd.pack, 17 GM PO DAILY PRN for CONSTIPATION- 1ST LINE Prescribed by: AGNES HEARN on 03/08/19 1104 Promethazine HCl 25 Mg Tablet, 25 MG PO Q6H PRN for NAUSEA/VOMITING-2ND LINE Prescribed by: AGNES HEARN on 03/08/19 1104 Patient Home Medication List Home Medication List Reviewed: Yes Past Pcwebfm-Ccwmie-Adeleo Hx Patient Social History Alcohol Use: Denies Use Recreational Drug Use: Yes Drug of Choice: CANNIBUS Smoking Status: Current Everyday Smoker Type Used: Cigarettes Former Smoker, Quit: Nov 04, 2018 Recent Foreign Travel: No Contact w/Someone Who Travel: No Recent Infectious Disease Expo: No Recent Hopitalizations: No Physical Abuse: No Sexual Abuse: No Mistreated: No Fear: No Immunizations Up To Date Tetanus Booster (TDap): Unknown Seasonal Allergies Seasonal Allergies: No Past Medical History Surgeries: Yes (TUMOR REMOVAL TO FACE, PANCREATIC STENT) Respiratory: No Cardiac: No Neurological: No Genitourinary: No Gastrointestinal: No Gastroesophageal Reflux Musculoskeletal: No Endocrine: No HEENT: No Cancer: Yes Liver, Pancreatic Did You Recieve Any Treatments: Yes What Type of Treatment Did You: Chemotherapy Psychosocial: No Integumentary: No Blood Disorders: No Family Medical History Cancer, Diabetes Review of Systems-General Constitutional: fever, malaise EENTM: no symptoms reported Respiratory: no symptoms reported Cardiovascular: no symptoms reported Gastrointestinal: RUQ, RLQ, abdominal pain (RUQ), constipation, jaundice, na usea, vomiting Genitourinary: no symptoms reported Musculoskeletal: no symptoms reported Skin: no symptoms reported Psychiatric/Neurological: No Symptoms Reported Physical Exam-General Problems Physical Exam Vital Signs Vital Signs - First Documented 03/09/19 03/09/19 15:08 19:11 Temp 36.8 Pulse 94 Resp 20 B/P (MAP) 115/71 (86) Pulse Ox 99 O2 Delivery Room Air Capillary Refill : Less Than 3 SecondsGreater Than 3 Seconds General Appearance: WD/WN, mild distress Eyes: Bilateral Eye Normal Inspection, Bilateral Eye EOMI, Bilateral Eye Scleral Icterus HEENT: normal ENT inspection, pharynx normal Neck: non-tender, full range of motion, normal inspection Respiratory: chest non-tender, lungs clear, normal breath sounds, no respiratory distress, no accessory muscle use Cardiovascular: normal peripheral pulses, regular rate, rhythm, no edema, no gallop, no JVD, no murmur Gastrointestinal: abnormal bowel sounds, distended, guarding; No rebound; tenderness; No mass Back: normal inspection Extremities: normal range of motion, normal inspection, no pedal edema Neurologic/Psychiatric: international account manager II-XII nml as tested, no motor/sensory deficits, alert, normal mood/affect, oriented x 3 Skin: warm/dry, jaundice Assessment/Plan Assessment/Plan Admission Diagnosis/Plan 53 yo male with pancreatic cancer metastatic to liver, lungs and retroperitoneal lymph nodes was admitted with ascending cholangitis. CT scans show rapid progression of disease despite almost two complete cycles of chemotherapy. He has been afebrile for about two days and is receiving appropriate antibiotic coverage according to sensitivity studies. However, bilirubin continues to rise. Although CT shows patent stent, if patient continues to have worsening hyperbilirubinemia despite adequate response to antibiotics, he will need to be sent for ERCP. Even though he has a grim prognosis, patient wants to continue aggressive treatment. We will see him back in clinic after discharge. I think he continues to have adequate performance status for treatment. Thank you for allowing me to participate in the care of Mr. Doss. Clinical Quality Measures DVT/VTE Risk/Contraindication: Risk Factor Score Per Nursin RFS Level Per Nursing on Admit: 4+=Very High Results Labs Labs Microbiology 03/09/19 Blood Culture - Final, Complete Klebsiella pneumoniae 03/09/19 Influenza Types A,B Antigen ([facility]) - Final, Complete 03/09/19 Urine Culture - Final, Complete 3 or more isolates Procedures Procedures Date of Exam:03/09/19 CT ABDOMEN/PELVIS W PROCEDURE: CT abdomen and pelvis with contrast. TECHNIQUE: Multiple contiguous axial images were obtained through the abdomen and pelvis after administration of intravenous contrast. Auto Exposure Controls were utilized during the CT exam to meet ALARA standards for radiation dose reduction. INDICATION: Abdominal pain, FINDINGS: The recent CT abdomen/pelvis exam of 03/06/2018 noted numerous enhancing lesions throughout the liver. These are felt to be related to metastatic disease secondary to the patient's history of pancreatic carcinoma. There was also a common bile duct stent in place. Those findings are again evident on this study. On the previous exam, the common bile duct was distended by gas and there was gas throughout the biliary tree. On this study, however, most of the gas has resolved and there is now fluid within the dilated common bile duct and biliary tree. The stent itself seems to be in good position. The previous exam also noted scattered fluid-filled segments of small bowel and raise a question of enteritis. On this exam, there is still gas and fluid in both the large and small bowel. The fluid-filled segments of small bowel low in the pelvis seen previously have resolved. There is no sign of bowel obstruction, but there could still be an ileus present. The spleen, adrenals, kidneys, gallbladder, aorta, and inferior vena cava show no sign of an acute abnormality. The stomach is not well distended and consequently difficult to assess. There is no pelvic mass or free fluid collection noted. The urinary bladder and prostate gland are grossly unremarkable. The appendix is not well visualized, but there are no indirect signs of acute appendicitis. The bone windows show no sign of a fracture or of a destructive lesion. The images through the lung bases are unremarkable for pneumonia or for pleural effusion; however, there are a few small pulmonary nodules in each lower lobe. The largest of these is in the lingula and measures 1.1 cm. These portions of the lung were not included on the prior exam. IMPRESSION: 1. The common bile duct stent seen previously remains in good position. The gas within the common bile duct and the proximal biliary tree seen previously has been predominantly replaced by fluid. There is no obstruction of the stent. If further evaluation is desired, however, then ERCP would be recommended. 2. The fluid-filled segments of small bowel low in the pelvis noted on the prior exam have resolved; however, there is still gas in both the large and small bowel. This could be secondary to an ileus. There is no evidence for a bowel obstruction. 3. There are numerous metastatic lesions involving the liver again noted.. 4. There are also pulmonary nodules in each lung base. These should be considered neoplastic until proven otherwise as well. 5. These results were discussed with Dr. Marcial in the ER. WANDER RUIZ MD Mar 12, 2019 14:02 POS
[2019-03-12 16:31] VITALS: BP 100/62
[2019-03-12] MEDS: fentaNYL INJECTION 1,000 MCG in NS (IVPB) 80 ML IV SCH (17:44)
[2019-03-12] MEDS: cefTRIAXone 1,000 MG/SWFI 10 ML IV PUSH IV SCH ×2 (18:43)
--- NOTE | 2019-03-12 18:52 | NUR ---
Wasted 12.5 cc Fentanyl FROM DECONTAMINATION TECHNICIAN bag with Glenda Rodriguez
[2019-03-12] MEDS: morphine ER 30 MG (MS CONTIN) TAB PO SCH (20:18)
[2019-03-13] VITALS: BP 113/72
[2019-03-13] MEDS: HYDROcodone/APAP 5 MG/325 MG (LORTAB) TAB PO PRN ×3 (00:24→12:45)
[2019-03-13] MEDS: LACTATED RINGERS 1,000 ML IV SCH ×3 (04:09→20:00)
[2019-03-13] MEDS: IBUPROFEN TABLET 200 MG TAB PO SCH ×2 (05:31→16:54)
[2019-03-13 05:37] LABS: BASOPHILS % (AUTO) 0 % (0-10); EOSINOPHILS # (AUTO) 0.3 10^3/uL (0.0-0.3); EOSINOPHILS % (AUTO) 3 % (0-10); HEMATOCRIT 28 % (40-54); HEMOGLOBIN 8.8 G/DL (13.3-17.7); LYMPHOCYTES # (AUTO) 0.9 X 10^3 (1.0-4.0); LYMPHOCYTES % (AUTO) 7 % (12-44); MEAN CORPUSCULAR HEMOGLOBIN 27 PG (25-34); MEAN CORPUSCULAR HGB CONC 31 G/DL (32-36); MEAN CORPUSCULAR VOLUME 87 FL (80-99); MEAN PLATELET VOLUME 10.5 FL (7.4-10.4); MONOCYTES # (AUTO) 1.1 X 10^3 (0.0-1.0); MONOCYTES % (AUTO) 10 % (0-12); NEUTROPHILS # (AUTO) 9.5 X 10^3 (1.8-7.8); NEUTROPHILS % (AUTO) 80 % (42-75); PLATELET COUNT 259 10^3/uL (130-400); RED CELL DISTRIBUTION WIDTH 23.2 % (10.0-14.5); WHITE BLOOD COUNT 11.8 10^3/uL (4.3-11.0)
[2019-03-13 06:04] LABS: ALANINE AMINOTRANSFERASE 126 U/L (0-55); ALBUMIN 3.1 GM/DL (3.2-4.5); ALKALINE PHOSPHATASE 456 U/L (40-136); BILIRUBIN,TOTAL 5.8 MG/DL (0.1-1.0); BUN/CREATININE RATIO 8; CALCIUM 8.8 MG/DL (8.5-10.1); CARBON DIOXIDE 22 MMOL/L (21-32); CHLORIDE 105 MMOL/L (98-107); CREATININE SERUM 0.73 MG/DL (0.60-1.30); GFR ESTIMATED > 60; GLUCOSE 118 MG/DL (70-105); POTASSIUM 3.9 MMOL/L (3.6-5.0); SODIUM 136 MMOL/L (135-145); TOTAL PROTEIN 6.2 GM/DL (6.4-8.2)
[2019-03-13] MEDS: morphine ER 30 MG (MS CONTIN) TAB PO SCH ×2 (08:46→21:14)
[2019-03-13] MEDS: SENNA W/DOCUSATE (SENOKOT S) TABLET PO SCH ×3 (08:46→23:04)
[2019-03-13] MEDS: PANTOPRAZOLE 40 MG (PROTONIX) TAB PO SCH (08:46)
[2019-03-13 08:51] VITALS: BP 108/67
--- NOTE | 2019-03-13 10:52 | Consultation - Surgery ---
[facility] 03/13/19 1052: History of Present Illness History of Present Illness Patient Consulted On(miguelina/time) 03/13/19 10:51 Date Seen by Provider: Mar 13, 2019 Time Seen by Provider: 10:51 Reason for Visit: Possible Ascending cholagnitis History of Present Illness Krunal is a 53 y/o male that presented to [facility] for abdominal pain. He currently has metastatic pancreatic cancer and is on palliative chemotherapy. He has had two stent placed, one in September due to it being too small and then one in January to place a more permanent stent. The first stent was placed at [facility] and the other was placed by the [facility] in . The patient currently has abdominal pain that radiates to the back, and nothing makes it better or worse. The pain has been going on for a couple of days and he states that is better then it has been the last couple days. The patient has been having light brown stools and does not notice any other associated symptoms. The patient currently have metastasis to the liver and some areas in the lungs that are being watched for possible metastasis. The patient had a CT of the C/A/P on 03/09/19 and this showed that the common bile duct was seen and was in good position, the gas within the common bile duct and the proximal biliary tree seen previously has been predominantly replaced by fluid. There was no obstruction of the stent. There is no evidence of bowel obstruction and liver metastasis and lung nodules are noted. Allergies and Home Medications Allergies Coded Allergies: Penicillins (Verified Allergy, Intermediate, HIVES, 02/01/15) Home Medications Calcium Carbonate 300 Mg Tab.chew, 300 MG PO TID PRN for INDIGESTION, (Reported) Guaifenesin 600 Mg Tab.er.12h, 600 MG PO BID PRN for CONGESTION Prescribed by: AGNES HEARN on 03/08/19 1104 Hydrocodone Bit/Acetaminophen 1 Tab Tab, 1 TAB PO Q6H PRN for PAIN-MODERATE (4- 6) Prescribed by: AGNES HEARN on 03/08/19 1104 Ibuprofen 200 Mg Tablet, 400 MG PO BID, (Reported) TAKES 2 (200MG) TABLETS Pantoprazole Sodium 40 Mg Tablet.dr, 40 MG PO DAILY, (Reported) Polyethylene Glycol 3350 17 Gm Powd.pack, 17 GM PO DAILY PRN for CONSTIPATION- 1ST LINE Prescribed by: AGNES HEARN on 03/08/19 110 Promethazine HCl 25 Mg Tablet, 25 MG PO Q6H PRN for NAUSEA/VOMITING-2ND LINE Prescribed by: AGNES HEARN on 03/08/19 1104 Past Zcutdwg-Ecggol-Bkopbf Hx Patient Social History Alcohol Use: Denies Use Recreational Drug Use: Yes Drug of Choice: CANNIBUS Smoking Status: Current Everyday Smoker Former Smoker, Quit: Nov 04, 2018 Type Used: Cigarettes Recent Foreign Travel: No Contact w/Someone Who Travel: No Recent Infectious Disease Expo: No Recent Hopitalizations: No Immunizations Up To Date Tetanus Booster (TDap): Unknown Seasonal Allergies Seasonal Allergies: No Surgeries History of Surgeries: Yes (TUMOR REMOVAL TO FACE, PANCREATIC STENT) Respiratory History of Respiratory Disorde: No Cardiovascular History of Cardiac Disorders: No Neurological History of Neurological Disord: No Genitourinary History of Genitourinary Disor: No Gastrointestinal History of Gastrointestinal Di: No Gastrointestinal Disorders: Gastroesophageal Reflux Musculoskeletal History of Musculoskeletal Dis: No Endocrine History of Endocrine Disorders: No HEENT History of HEENT Disorders: No Cancer History of Cancer: Yes Cancer: Liver, Pancreatic Psychosocial History of Psychiatric Problem: No Integumentary History of Skin or Integumenta: No Blood Transfusions History of Blood Disorders: No Family Medical History Significant Family History: Cancer, Diabetes Review of Systems-General Constitutional: no symptoms reported EENTM: epistaxis (while blowing his nose ) Respiratory: No cough, No dyspnea on exertion, No hemoptysis, No short of breath Cardiovascular: no symptoms reported Gastrointestinal: abdominal pain, diarrhea, jaundice; No nausea, No vomiting Genitourinary: no symptoms reported Musculoskeletal: back pain Skin: no symptoms reported Psychiatric/Neurological: No Symptoms Reported Physical Exam-General Problems Physical Exam Vital Signs Vital Signs - First Documented 03/09/19 03/09/19 15:08 19:11 Temp 36.8 Pulse 94 Resp 20 B/P (MAP) 115/71 (86) Pulse Ox 99 O2 Delivery Room Air Capillary Refill : Less Than 3 SecondsGreater Than 3 Seconds General Appearance: WD/WN, no apparent distress Eyes: Bilateral Eye PERRL, Bilateral Eye EOMI HEENT: PERRL/EOMI, scleral icterus (R), scleral icterus (L); No photophobia Neck: non-tender, normal inspection Respiratory: chest non-tender, normal breath sounds, no respiratory distress, no accessory muscle use Cardiovascular: normal peripheral pulses, no edema Peripheral Pulses: 2+ Dorsalis Pedis (R), 2+ Left Dors-Pedis (L), 2+ Radial Pulses (R), 2+ Radial Pulses (L) Gastrointestinal: normal bowel sounds, distended, tenderness Back: vertebral tenderness Extremities: normal range of motion, no calf tenderness Neurologic/Psychiatric: no motor/sensory deficits, alert, normal mood/affect, oriented x 3 Skin: normal color, warm/dry Lymphatic: no adenopathy Data Review Labs Laboratory Tests 03/13/19 05:30: White Blood Count 11.8H, Red Blood Count 3.23L, Hemoglobin 8.8L, Hematocrit 28L, Mean Corpuscular Volume 87, Mean Corpuscular Hemoglobin 27, Mean Corpuscular Hemoglobin Concent 31L, Red Cell Distribution Width 23.2H, Platelet Count 259, Mean Platelet Volume 10.5H, Neutrophils (%) (Auto) 80H, Lymphocytes (%) (Auto) 7L, Monocytes (%) (Auto) 10, Eosinophils (%) (Auto) 3, Basophils (%) (Auto) 0, Neutrophils # (Auto) 9.5H, Lymphocytes # (Auto) 0.9L, Monocytes # (Auto) 1.1H, Eosinophils # (Auto) 0.3, Basophils # (Auto) 0.0, Sodium Level 136, Potassium Level 3.9, Chloride Level 105, Carbon Dioxide Level 22, Anion Gap 9, Blood Urea Nitrogen 6L, Creatinine 0.73, Estimat Glomerular Filtration Rate > 60, BUN/Creatinine Ratio 8, Glucose Level 118H, Calcium Level 8.8, Corrected Calcium 9.5, Total Bilirubin 5.8H, Aspartate Amino Transf (AST/SGOT) 96H, Alanine Ami notransferase (ALT/SGPT) 126H, Alkaline Phosphatase 456H, Total Protein 6.2L, Albumin 3.1L Microbiology 03/09/19 Blood Culture - Final, Complete Klebsiella pneumoniae 03/09/19 Influenza Types A,B Antigen (KEARA) - Final, Complete 03/09/19 Urine Culture - Final, Complete 3 or more isolates Assessment/Plan Assessment/Plan Assessment/Plan Possible Ascending cholangitis, Possible stent ingrowth, migration or blockage, Pancreatic cancer with metastasis to the liver, Anemia, Klebsiella pneumonia, hyperbilirubinemia, elevated ALK, Elevated Liver Enzymes - Consider U/S for CBD and possible gallbladder etiology or repeat CT to check stent. - Consider Anaerobe coverage for possible ascending cholangitis. Ceftriaxone is running consider the addition of Flagyl - Consider transfer for ERCP to reevaluate stent placement and function. Patient is having increasing lab values for AST, ALT, total bilirubin, ALK. These could be associated with ascending cholangitis or issues with stent placement,migration, obstruction or ingrowth. - Order GGT - monitor labs and vitals. - continue medical management Clinical Quality Measures DVT/VTE Risk/Contraindication: Risk Factor Score Per Nursin RFS Level Per Nursing on Admit: 4+=Very High SRINIVASA OSBORNE DO 03/13/191957: History of Present Illness History of Present Illness History of Present Illness 53 year old male with metastatic pancreatic cancer. He has stent in cbd. Patient states he was admitted due to increasing abdominal pain that was having a hard time getting controlled. He states pain in upper portion of abdomen and radiates to back. Nothing seems to make better or worse. Patient bilirubin continues to climb and elevated liver enzymes. Ct scan demonstrates stent in bile duct in good position, no gas in cbd which was previously there replaced now by fluid. Allergies and Home Medications Allergies Coded Allergies: Penicillins (Verified Allergy, Intermediate, HIVES, 02/01/15) Home Medications Calcium Carbonate 300 Mg Tab.chew, 300 MG PO TID PRN for INDIGESTION, (Reported) Guaifenesin 600 Mg Tab.er.12h, 600 MG PO BID PRN for CONGESTION Prescribed by: AGNES HEARN on 03/08/19 1104 Hydrocodone Bit/Acetaminophen 1 Tab Tab, 1 TAB PO Q6H PRN for PAIN-MODERATE (4- 6) Prescribed by: AGNES HEARN on 03/08/19 1104 Ibuprofen 200 Mg Tablet, 400 MG PO BID, (Reported) TAKES 2 (200MG) TABLETS Pantoprazole Sodium 40 Mg Tablet.dr, 40 MG PO DAILY, (Reported) Polyethylene Glycol 3350 17 Gm Powd.pack, 17 GM PO DAILY PRN for CONSTIPATION- 1ST LINE Prescribed by: AGNES HEARN on 03/08/19 1104 Promethazine HCl 25 Mg Tablet, 25 MG PO Q6H PRN for NAUSEA/VOMITING-2ND LINE Prescribed by: AGNES HEARN on 03/08/19 110 Patient Home Medication List Home Medication List Reviewed: Yes Past Lkxrzvn-Cphfew-Hqhbux Hx Patient Social History Alcohol Use: Denies Use Recreational Drug Use: Yes Smoking Status: Current Everyday Smoker Type Used: Cigarettes Recent Foreign Travel: No Contact w/Someone Who Travel: No Recent Infectious Disease Expo: No Recent Hopitalizations: No Immunizations Up To Date Tetanus Booster (TDap): Unknown Seasonal Allergies Seasonal Allergies: No Surgeries History of Surgeries: Yes (TUMOR REMOVAL TO FACE, PANCREATIC STENT) Respiratory History of Respiratory Disorde: No Cardiovascular History of Cardiac Disorders: No Neurological History of Neurological Disord: No Genitourinary History of Genitourinary Disor: No Gastrointestinal History of Gastrointestinal Di: No Musculoskeletal History of Musculoskeletal Dis: No Endocrine History of Endocrine Disorders: No HEENT History of HEENT Disorders: No Cancer History of Cancer: Yes Cancer: Liver, Pancreatic Psychosocial History of Psychiatric Problem: No Integumentary History of Skin or Integumenta: No Blood Transfusions History of Blood Disorders: No Family Medical History Significant Family History: Cancer, Diabetes Review of Systems-General Constitutional: no symptoms reported EENTM: epistaxis (while blowing his nose ) Cardiovascular: no symptoms reported Gastrointestinal: abdominal pain, diarrhea, jaundice; No nausea, No vomiting Genitourinary: no symptoms reported Musculoskeletal: back pain Skin: no symptoms reported Psychiatric/Neurological: No Symptoms Reported Physical Exam-General Problems Physical Exam General Appearance: WD/WN, no apparent distress HEENT: PERRL/EOMI, scleral icterus (R), scleral icterus (L) Neck: non-tender, normal inspection Respiratory: chest non-tender, normal breath sounds, no respiratory distress, no accessory muscle use Cardiovascular: normal peripheral pulses Gastrointestinal: soft, distended, tenderness (epigastric region) Back: vertebral tenderness Extremities: normal range of motion, no calf tenderness Neurologic/Psychiatric: no motor/sensory deficits, alert Skin: warm/dry, jaundice Lymphatic: no adenopathy Assessment/Plan Assessment/Plan Assessment/Plan Possible Ascending cholangitis, Possible stent of CBD obstruction, Pancreatic cancer with metastasis to the liver, Anemia, Klebsiella pneumonia, hy perbilirubinemia, elevated ALK, Elevated Liver Enzymes I feel that the stent of CBD needs further evaluated since bili and liver enzymes increasing along with wbc with possible ascending cholangitis discussed with patient need for ERCP Patient would like to discuss with Dr. Hardy Supervisory-Addendum Brief Verification & Attestation Participated in pt care: history, MDM, physical Personally performed: exam, history, MDM, supervision of care Care discussed with: Medical Student Procedures: n/a Results interpretation: Verified all documentation Verification and Attestation of Medical Student E/M Service A medical student performed and documented this service in my presence. I reviewed and verified all information documented by the medical student and made modifications to such information, when appropriate. I personally performed the physical exam and medical decision making. Srinivasa Osborne, Mar 13, 2019,20:10 [facility] Mar 13, 2019 10:52 SRINIVASA RAMOS DO Mar 13, 2019 19:58 POS
--- NOTE | 2019-03-13 10:56 | Progress Note - Hospitalist ---
SATURNINO VILLANUEVA,MED STUDENT 03/13/19 1056: Subjective HPI/CC On Admission Date Seen by Provider: Mar 13, 2019 Time Seen by Provider: 08:16 Subjective/Events-last exam Pt states his pain is stable at 7/10. Exacerbated by increases in abdominal pressure. Experienced some relief after having a bowel movement yesterday, and notes three bouts of diarrhea last night. This his nausea is stable as well. Pt wishes to stay in the hospital while we monitor his hyperbilirubinemia, which worsened over the weekend. Pt has no other complaints at this time. Not accompanied in room. Objective Exam Vital Signs Vital Signs Date Time Temp Pulse Resp B/P (MAP) Pulse Ox O2 Delivery O2 Flow Rate FiO2 03/13/19 09:06 97 Simple Mask 03/13/19 08:51 36.6 65 20 108/67 (81) Capillary Refill : Less Than 3 SecondsGreater Than 3 Seconds General Appearance: No Apparent Distress, WD/WN HEENT: PERRL/EOMI, Pharynx Normal Respiratory: Chest Non Tender, Lungs Clear, Normal Breath Sounds, No Accessory Muscle Use, No Respiratory Distress Cardiovascular: Regular Rate, Rhythm, No Murmur Gastrointestinal: Soft; No Distended; Tenderness (RUQ) Neurologic/Psychiatric: Alert, Oriented x3 Skin: Normal Color, Warm/Dry Results/Procedures Lab Laboratory Tests 03/13/19 05:30 Patient resulted labs reviewed. Assessment/Plan Assessment and Plan Assess & Plan/Chief Complaint Hyperbilirubinemia Pancreatic cancer with metastasis to liver, lungs and retroperitoneal lymph nodes Klebsiella pneumonia sepsis - resolved Continue IVF, pain management and antibiotic therapy Consulting general surgery regarding hyperbilirubinemia. Pt needs to be evaluated for ERCP per Dr. Hardy's recommendation if bilirubin does not resolve after appropriate antibiotic therapy. Rec consulting palliative care for further pain management Clinical Quality Measures DVT/VTE Risk/Contraindication: Risk Factor Score Per Nursin RFS Level Per Nursing on Admit: 4+=Very High CYNDIE ZHOU DO 03/13/19 1823: Subjective Subjective/Events-last exam Pt doing okay Pain is still an issue Bowels are not moving so will initiate a bowel regimen since narcotic bowel is high risk Appreciate Dr. Hardy evaluation and consultation Dr. Clark will see him for elevated total Bilirubin and it appears that the stent is patent on CT scan and questionable if he needs and ERCP or something else Poor prognosis Review of Systems General: Fatigue Pulmonary: Dyspnea, Cough Gastrointestinal: Abdominal Pain, Constipation Objective Exam General Appearance: No Apparent Distress, WD/WN, Chronically ill Respiratory: Lungs Clear, No Accessory Muscle Use, No Respiratory Distress, Decreased Breath Sounds Assessment/Plan Assessment and Plan Assess & Plan/Chief Complaint Plan: Prognosis poor Dr Clark for evaluation of bilirubin elevation may need ERCP non-urgently Diagnosis/Problems Diagnosis/Problems (1) Klebsiella pneumonia (2) History of malignant neoplasm of pancreas Status: Acute (3) Uncontrolled pain Status: Acute (4) Elevated liver enzymes Status: Acute Supervisory-Addendum Brief Verification & Attestation Participated in pt care: history, MDM, physical Personally performed: exam, history, MDM, supervision of care Care discussed with: Medical Student Procedures: n/a Results interpretation: Verified all documentation Verification and Attestation of Medical Student E/M Service A medical student performed and documented this service in my presence. I reviewed and verified all information documented by the medical student and made modifications to such information, when appropriate. I personally performed the physical exam and medical decision making. Cyndie Zhou, Mar 13, 2019,18:23 SATURNINO VILLANUEVA,MED STUDENT Mar 13, 2019 10:56 CYNDIE ANN DO Mar 13, 2019 18:23 POS
[2019-03-13] MEDS: ENOXAPARIN 40 MG/0.4 ML (LOVENOX) SYR SQ SCH (11:54)
[2019-03-13] MEDS: ceFAZolin 1,000 MG/SWFI 10 ML IV PUSH IV SCH ×4 (14:10→21:15)
--- NOTE | 2019-03-13 15:14 | NUR ---
DR OSBORNE ASKED NURSE TO FIND OUT WHAT HOSPITAL THE PATIENT WAS IN WHEN HIS STENTS WERE INSERTED, FIRST STENT WAS AT [facility] IN [place], AND SECOND WAS IN AT [facility] ACCORDING TO PATIENT, PATIENT REQUESTED TO TALK TO DR RUIZ BEFORE RUBEN TRANSFER, DR OSBORNE NOTIFIED
[2019-03-13 15:24] VITALS: BP 114/71
--- NOTE | 2019-03-13 15:52 | NUR ---
Pt states he feels his pain control is much improved. He is upset that he understands that hi "friends " are driving his truck and won't answer his texts. Pt was also recently approved for social security disability and still awaiting approval from [place] medicaid. Pt has no ckise relatives. His Aunt lives in [place], [place] and his sister lives out of state. will continue to follow and assist.
--- NOTE | 2019-03-13 16:14 | NUR ---
DR RUIZ NOTIFIED AND INSTRUCTED NURSE HE WAS OUT OF TOWN AND NOT AVAILABLE. DR OSBORNE NOTIFIED
[2019-03-13] MEDS ORDERED: SALIVA STIMULANT MOUTH SPRAY (BIOTENE) 1.5 OZ MM PRN (16:45)
[2019-03-13] MEDS: LACTULOSE SYRUP 10GM/15ML (ENULOSE) 30ML UDC PO SCH (21:15)
[2019-03-13] MEDS: POLYETHYLENE GLYCOL 17 GM (MIRALAX) PACK PO SCH (23:04)
[2019-03-14 00:15] VITALS: BP 107/65
[2019-03-14] MEDS: LACTATED RINGERS 1,000 ML IV SCH ×3 (04:14→20:10)
[2019-03-14 05:22] LABS: BASOPHILS % (AUTO) 0 % (0-10); EOSINOPHILS # (AUTO) 0.4 10^3/uL (0.0-0.3); EOSINOPHILS % (AUTO) 3 % (0-10); HEMATOCRIT 25 % (40-54); HEMOGLOBIN 8.1 G/DL (13.3-17.7); LYMPHOCYTES # (AUTO) 0.9 X 10^3 (1.0-4.0); LYMPHOCYTES % (AUTO) 8 % (12-44); MEAN CORPUSCULAR HEMOGLOBIN 28 PG (25-34); MEAN CORPUSCULAR HGB CONC 32 G/DL (32-36); MEAN CORPUSCULAR VOLUME 86 FL (80-99); MEAN PLATELET VOLUME 10.3 FL (7.4-10.4); MONOCYTES # (AUTO) 1.3 X 10^3 (0.0-1.0); MONOCYTES % (AUTO) 11 % (0-12); NEUTROPHILS # (AUTO) 9.5 X 10^3 (1.8-7.8); NEUTROPHILS % (AUTO) 78 % (42-75); PLATELET COUNT 292 10^3/uL (130-400); WHITE BLOOD COUNT 12.1 10^3/uL (4.3-11.0)
[2019-03-14 05:37] LABS: ALANINE AMINOTRANSFERASE 107 U/L (0-55); ALKALINE PHOSPHATASE 423 U/L (40-136); BUN/CREATININE RATIO 10; CALCIUM 8.9 MG/DL (8.5-10.1); CARBON DIOXIDE 24 MMOL/L (21-32); CHLORIDE 104 MMOL/L (98-107); CREATININE SERUM 0.67 MG/DL (0.60-1.30); GFR ESTIMATED > 60; GLUCOSE 105 MG/DL (70-105); POTASSIUM 3.7 MMOL/L (3.6-5.0); SODIUM 138 MMOL/L (135-145)
[2019-03-14] MEDS: ceFAZolin 1,000 MG/SWFI 10 ML IV PUSH IV SCH ×6 (06:48→21:55)
[2019-03-14] MEDS: IBUPROFEN TABLET 200 MG TAB PO SCH ×2 (06:48→17:20)
--- NOTE | 2019-03-14 06:57 | NUR ---
pt reports feeling cold and having chills, temperature 38.4 at this time. scheduled ibuprofen given. will continue to monitor
[2019-03-14 08:00] VITALS: BP 133/75
[2019-03-14] MEDS: LACTULOSE SYRUP 10GM/15ML (ENULOSE) 30ML UDC PO SCH ×2 (08:59→21:11)
[2019-03-14] MEDS ORDERED: BISACODYL 10 MG SUPP (DULCOLAX) PR SCH (09:00)
[2019-03-14] MEDS: PANTOPRAZOLE 40 MG (PROTONIX) TAB PO SCH (09:00)
[2019-03-14] MEDS: POLYETHYLENE GLYCOL 17 GM (MIRALAX) PACK PO SCH ×2 (09:01→21:11)
[2019-03-14] MEDS: morphine ER 30 MG (MS CONTIN) TAB PO SCH ×2 (09:01→21:35)
[2019-03-14] MEDS: SENNA W/DOCUSATE (SENOKOT S) TABLET PO SCH ×2 (09:07→21:11)
--- NOTE | 2019-03-14 10:22 | Progress Note - Surgery ---
[facility] 03/14/19 1021: Subjective Date Seen by a Provider: Mar 14, 2019 Time Seen by a Provider: 07:30 Subjective/Events-last exam Patient is alert and oriented and in no acute distress. No family at bedside Pt is a little more jaundice today and he feels itchy Pt still has abdominal pain Pt is NPO, and is urinating and having flatus Does not feel N/V, SOB or chest pain but has felt feverish and chills at times Review of Systems General: Chills Pulmonary: No Dyspnea, No Cough Cardiovascular: No: Chest Pain, Palpitations Gastrointestinal: Abdominal Pain; No: Nausea, Vomiting Objective Exam Vital Signs Date Time Temp Pulse Resp B/P (MAP) Pulse Ox O2 Delivery O2 Flow Rate FiO2 03/14/19 08:00 38.9 92 20 133/75 (94) 93 Room Air 03/14/19 06:58 38.4 03/14/19 00:15 36.9 64 16 107/65 (79) 93 Room Air 03/13/19 21:15 Room Air 03/13/19 20:10 18 03/13/19 19:49 18 03/13/19 15:24 36.9 65 18 114/71 (85) 94 Room Air I & O 03/14/19 07:00 Intake Total 3280 ml Balance 3280 ml Capillary Refill : Less Than 3 SecondsGreater Than 3 Seconds General Appearance: No Apparent Distress, WD/WN, Chronically ill HEENT: PERRL/EOMI, Pharynx Normal Respiratory: Lungs Clear, No Accessory Muscle Use, No Respiratory Distress, Decreased Breath Sounds Cardiovascular: Regular Rate, Rhythm, No Murmur Peripheral Pulses: 2+ Dorsalis Pedis (R), 2+ Left Dors-Pedis (L), 2+ Radial Pulses (R), 2+ Radial Pulses (L) Gastrointestinal: soft, distended, tenderness (epigastric region) Neurologic/Psychiatric: Alert, Oriented x3 Skin: Warm/Dry, Jaundice Lymphatic: No Adenopathy Results Lab Laboratory Tests 03/14/19 05:10: White Blood Count 12.1H, Red Blood Count 2.91L, Hemoglobin 8.1L, Hematocrit 25L, Mean Corpuscular Volume 86, Mean Corpuscular Hemoglobin 28, Mean Corpuscular Hemoglobin Concent 32, Red Cell Distribution Width 23.0H, Platelet Count 292, Mean Platelet Volume 10.3, Neutrophils (%) (Auto) 78H, Lymphocytes (%) (Auto) 8L , Monocytes (%) (Auto) 11, Eosinophils (%) (Auto) 3, Basophils (%) (Auto) 0, Neutrophils # (Auto) 9.5H, Lymphocytes # (Auto) 0.9L, Monocytes # (Auto) 1.3H, Eosinophils # (Auto) 0.4H, Basophils # (Auto) 0.0, Sodium Level 138, Potassium Level 3.7, Chloride Level 104, Carbon Dioxide Level 24, Anion Gap 10, Blood Urea Nitrogen 7, Creatinine 0.67, Estimat Glomerular Filtration Rate > 60, BUN/Creatinine Ratio 10, Glucose Level 105, Calcium Level 8.9, Corrected Calcium 9.7, Total Bilirubin 7.0H, Aspartate Amino Transf (AST/SGOT) 73H, Alanine Aminotransferase (ALT/SGPT) 107H, Alkaline Phosphatase 423H, Total Protein 6.0L, Albumin 3.0L Microbiology 03/09/19 Blood Culture - Final, Complete Klebsiella pneumoniae 03/09/19 Influenza Types A,B Antigen (KEARA) - Final, Complete 03/09/19 Urine Culture - Final, Complete 3 or more isolates Assessment/Plan Assessment/Plan Assessment/Plan Possible Ascending cholangitis, Possible stent of CBD obstruction, Pancreatic cancer with metastasis to the liver, Anemia, Klebsiella pneumonia, hyperbilirubinemia, elevated ALK, Elevated Liver Enzymes - Spoke to the patient this morning and he is willing to be transferred to get ERCP done, will be working on transferring. - Continue medical management and treatment for ascending cholangitis - pt is to NPO - Increasing total billirubin and drop in HgB, will continue to monitor Clinical Quality Measures DVT/VTE Risk/Contraindication: Risk Factor Score Per Nursin RFS Level Per Nursing on Admit: 4+=Very High SRINIVASA OSBORNE DO 03/14/19 7093: Subjective Subjective/Events-last exam Patient abdominal pain epigastric/ruq area about same. Having fever. NPO. Having increasing bilirubin and wbc. Patient states that he is now okay with being transferred for ERCP Denies n/v, shorness of breath or chest pain at this time. Objective Exam General Appearance: No Apparent Distress HEENT: PERRL/EOMI, Scleral Icterus (L), Scleral Icterus (R) Neck: Non Tender, Supple Respiratory: Chest Non Tender, No Accessory Muscle Use, No Respiratory Distress Cardiovascular: Regular Rate, Rhythm Gastrointestinal: distended, tenderness (epigastric region) Extremity: Non Tender Neurologic/Psychiatric: Alert, Oriented x3 Skin: Jaundice Assessment/Plan Assessment/Plan Assessment/Plan Possible Ascending cholangitis, Possible stent of CBD obstruction, Pancreatic cancer with metastasis to the liver, Anemia, Klebsiella pneumonia, hyperbilirubinemia, elevated ALK, Elevated Liver Enzymes Patient agrees to transfer for ERCP now, where he did not yesterday. Would like to stay as close as possible. Tried to arrange transfer to [facility], however he is not available and he was first to place stent. Tried [facility] but felt that patient was better suited to be on the [place] system due to pending [place] med[place]. Finally arranged transfer to [facility] Dr. Wick accepting hospitalist and Discussed with GI who agree with need for ERCP to evaluate stent Supervisory-Addendum Brief Verification & Attestation Participated in pt care: history, MDM, physical Personally performed: exam, history, MDM, supervision of care Care discussed with: Medical Student Procedures: n/a Results interpretation: Verified all documentation Verification and Attestation of Medical Student E/M Service A medical student performed and documented this service in my presence. I reviewed and verified all information documented by the medical student and made modifications to such information, when appropriate. I personally performed the physical exam and medical decision making. Srinivasa Osborne, Mar 14, 2019,23:41 [facility] Mar 14, 2019 10:21 SRINIVASA RAMOS DO Mar 14, 2019 23:41 POS
--- NOTE | 2019-03-14 11:05 | Progress Note - Hospitalist ---
SATURNINO VILLANUEVA,MED STUDENT 03/14/19 1105: Subjective HPI/CC On Admission Date Seen by Provider: Mar 14, 2019 Time Seen by Provider: 07:36 Subjective/Events-last exam Pt states he is not feeling well today. Endorses fever, continued RUQ abdominal pain, nausea and new productive cough with yellow/green sputum. Despite saying yesterday he wanted to wait for ERCP until he spoke with Dr. Hardy, pt would like to move forward with the procedure granted we can transport him. Objective Exam Vital Signs Vital Signs Date Time Temp Pulse Resp B/P (MAP) Pulse Ox O2 Delivery O2 Flow Rate FiO2 03/14/19 08:00 38.9 92 20 133/75 (94) 93 Room Air Capillary Refill : Less Than 3 SecondsGreater Than 3 Seconds General Appearance: WD/WN, Anxious, Mild Distress HEENT: PERRL/EOMI, Pharynx Normal Neck: Non Tender, Supple Respiratory: Chest Non Tender, Lungs Clear, No Accessory Muscle Use, No Respiratory Distress, Decreased Breath Sounds Cardiovascular: Regular Rate, Rhythm, No Edema, No Gallop, Normal Peripheral Pulses, Systolic Murmur (2/4 holosystolic best heard left lower sternal border, not auscultated yesterday ) Gastrointestinal: Soft, Tenderness (RUQ) Neurologic/Psychiatric: Alert, Oriented x3 Skin: Damp, Pallor Results/Procedures Lab Laboratory Tests 03/14/19 05:10 Patient resulted labs reviewed. Assessment/Plan Assessment and Plan Assess & Plan/Chief Complaint Hyperbilirubinemia Pancreatic cancer with metastasis to liver, lungs and retroperitoneal lymph nodes Klebsiella pneumonia Possible Ascending cholangitis Continue IVF, pain management and antibiotic therapy Dr. Clark agrees pt needs to be transferred to a facility for ERCP Abx regimen insufficient, rec adding metronidazole 500mg PO q6-8h 7-14 days or alternatively discontinuing cefazolin and switching to pip/tazo 3.375g IV q6h x7-10 days since pt is high risk ascending cholangitis d/t malignancy Rec consulting palliative care for further pain management Clinical Quality Measures DVT/VTE Risk/Contraindication: Risk Factor Score Per Nursin RFS Level Per Nursing on Admit: 4+=Very High CYNDIE ZHOU DO 03/14/19 5814: Subjective Subjective/Events-last exam Pt started running a fever. White count is more elevated today. Bowels are moving more after multiple meds given. Feels like Dr. Hardy would want him to have his ERCP so I updated Dr. Clark to make those arrangements. Total bilirubin up to 7.0 today. Overall prognosis is extremely poor given the aggressive nature of the pancreatic tumor. Review of Systems General: Fatigue Pulmonary: Cough Objective Exam General Appearance: No Apparent Distress, WD/WN, Anxious, Chronically ill Respiratory: No Accessory Muscle Use, No Respiratory Distress, Crackles, Decreased Breath Sounds Cardiovascular: Regular Rate, Rhythm Gastrointestinal: Soft Neurologic/Psychiatric: Alert, Oriented x3 Skin: Normal Color, Warm/Dry Assessment/Plan Assessment and Plan Assess & Plan/Chief Complaint Fever Ascending cholangitis? Leukocytosis Klebsiella pneumonia ERCP? Prognosis poor Diagnosis/Problems Diagnosis/Problems (1) Ascending cholangitis (2) Fever (3) Klebsiella pneumonia (4) HX PANCREATIC NEOPLASM (5) Uncontrolled pain Status: Acute (6) Elevated liver enzymes Status: Acute Supervisory-Addendum Brief Verification & Attestation Participated in pt care: history, MDM, physical Personally performed: exam, history, MDM, supervision of care Care discussed with: Medical Student Procedures: n/a Results interpretation: Verified all documentation Verification and Attestation of Medical Student E/M Service A medical student performed and documented this service in my presence. I reviewed and verified all information documented by the medical student and made modifications to such information, when appropriate. I personally performed the physical exam and medical decision making. Cyndie Zhou, Mar 14, 2019,19:04 SATURNINO VILLANUEVA,MED STUDENT Mar 14, 2019 11:05 CYNDIE ANN DO Mar 14, 2019 19:04 POS
[2019-03-14] MEDS: ENOXAPARIN 40 MG/0.4 ML (LOVENOX) SYR SQ SCH (12:30)
--- NOTE | 2019-03-14 13:00 | NUR ---
PER [facility]
[2019-03-14 18:16] VITALS: BP 132/61
--- NOTE | 2019-03-14 18:50 | NUR ---
called in to DR. OSBORNE PT HAD FEVER OF 102 , GAVE IBUPROPHEN FEVER WENT UP ON LAST RETAKE TO 103.[address]. [address] ICEPACKS AND ASKED FOR ORDERS Addendum: 03/14/19 at 1852 by PIO OWENS RN PT AWAITING TRANSFER TO [facility]ON BED IS AVAILABLE
--- NOTE | 2019-03-14 19:27 | NUR ---
Dr. Clark called and has switched the patient transfer to [facility] in [place]. report was given to Sheba Crouch RN
[2019-03-14 19:50] VITALS: BP 106/58
--- NOTE | 2019-03-14 22:04 | NUR ---
REPORT CALLED TO MARY KAY GUTIERREZ AT [facility].
--- NOTE | 2019-03-14 22:14 | NUR ---
[facility] NOTIFIED OF NEED FOR TRANSFER.
[2019-03-14 23:13] VITALS: BP 95/47
--- NOTE | 2019-03-14 23:13 | NUR ---
Patient to [facility] from [facility] per AMBULANCE accompanied by EMS. Patient notified and understands transfer. Personal belongings with patient. Report given to MARY KAY GUTIERREZ. Assessment completed by SAADIA ROYAL.
--- NOTE | 2019-03-14 23:20 | NUR ---
41 MLS OF FENTANYL 1000MCG IN NS IVPB BAG 80ML WASTED WITH MARY KAY PICKARD. ELECTRONIC TECH D/C - PT TRANSFERRED TO [facility].
--- NOTE | 2019-03-15 07:58 | Discharge Summary ---
Discharge Summary Hospital Course Was the Problem List Reviewed?: Yes Problems/Dx: (1) Ascending cholangitis (2) Fever (3) Klebsiella pneumonia (4) HX PANCREATIC NEOPLASM (5) Uncontrolled pain Status: Acute (6) Elevated liver enzymes Status: Acute Hospital Course Date of Admission: Mar 09, 2019 at 18:00 Admission Diagnosis : Family Physician/Provider: Suzanne Noonan MD Date of Discharge: 03/15/19 Discharge Diagnosis: Ascending cholangitis, pancreatic cancer Hospital Course: Hospital Course: Pt had an a lengthy hospital course after he was admitted for abdominal pain due to pancreatic mass and was found to have Klebsiella Pneumonia. Rocephin initiated, Labs monitored, total Bilirubin began to increase prompotine surgery consultation and arrangements were made for ERCP and transfer to [facility] occurred at [facility] but prognosis is extremely poor. Labs and Pending Lab Test: Microbiology 03/09/19 Blood Culture - Final, Complete Klebsiella pneumoniae 03/09/19 Influenza Types A,B Antigen (KEARA) - Final, Complete 03/09/19 Urine Culture - Final, Complete 3 or more isolates Home Meds Active Miralax (Polyethylene Glycol 3350) 17 Gm Powd.pack 17 Gm PO DAILY PRN Mucinex (Guaifenesin) 600 Mg Tab.er.12h 600 Mg PO BID PRN Hydrocodone/Acetaminophen 5/325mg Tablet (Acetaminophen/Hydrocodone Bitart) 1 Tab Tab 1 Tab PO Q6H PRN Promethazine Tablet (Promethazine HCl) 25 Mg Tablet 25 Mg PO Q6H PRN Reported Tums (Calcium Carbonate) 300 Mg Tab.chew 300 Mg PO TID PRN Advil (Ibuprofen) 200 Mg Tablet 400 Mg PO BID TAKES 2 (200MG) TABLETS Pantoprazole Sodium 40 Mg Tablet.dr 40 Mg PO DAILY Assessment/Pt Instructions Martin Discharge Planning: <30 minutes discharge planning Discharge Instructions Discharge Diet: Other Diet Activity as Tolerated: Yes Discharge Physical Examination Vital Signs Vital Signs Date Time Temp Pulse Resp B/P (MAP) Pulse Ox O2 Delivery O2 Flow Rate FiO2 03/14/19 23:13 35.5 93 22 95/47 (63) 96 Nasal Cannula 2.00 General Appearance: No Apparent Distress, WD/WN Allergies: Coded Allergies: Penicillins (Verified Allergy, Intermediate, HIVES, 02/01/15) Discharge Summary Date of Admission Mar 09, 2019 at 18:00 Date of Discharge Mar 14, 2019 at 23:13 Discharge Diagnosis Fever Ascending cholangitis? Leukocytosis Klebsiella pneumonia ERCP? Prognosis poor (1) Ascending cholangitis (2) Fever (3) Klebsiella pneumonia (4) HX PANCREATIC NEOPLASM (5) Uncontrolled pain Status: Acute (6) Elevated liver enzymes Status: Acute Clinical Quality Measures DVT/VTE Risk/Contraindication: Risk Factor Score Per Nursin RFS Level Per Nursing on Admit: 4+=Very High AARON ZHOU DO Mar 15, 2019 07:58 POS
--- NOTE | 2019-03-15 14:04 | Progress Note ---
SATURNINO VILLANUEVAMED STUDENT 03/15/19 1404: Progress Note Pt with bile duct stent secondary to pancreatic cancer with metastasis to liver presented to ED with abdominal pain, SOB, cough, chills. Supportive care and pain management were started in the ED. No bile duct obstruction was found on CT but new lesions in lungs and retroperitoneal lymph nodes were disovered. Surgery and oncology were consulted regarding high WBC, liver function tests and bilirubin with continued abdominal pain. Both services recommended the patient should be transferred to a facility that could perform ERCP to assess patency of CBD stent and provide higher level of care. Pt was transferred to [facility]. CYNDIE KONG DO 03/15/19 2118: Supervisory-Addendum Brief Verification & Attestation Participated in pt care: history, MDM, physical Personally performed: exam, history, MDM, supervision of care Care discussed with: Medical Student Procedures: n/a Results interpretation: Verified all documentation Verification and Attestation of Medical Student E/M Service A medical student performed and documented this service in my presence. I reviewed and verified all information documented by the medical student and made modifications to such information, when appropriate. I personally performed the physical exam and medical decision making. Cyndie Kong, Mar 15, 2019,21:18 SATURNINO VILLANUEVA MED STUDENT Mar 15, 2019 14:04 CYNDIE ANN DO Mar 15, 2019 21:18 POS
== END 2019-03-14 23:13 | disposition designated cancer center or children's hospital (05) | DRG 872 ==
LOC: EDUNIT# 14:54 → ER 14:56 → 4TH 18:00
PROVIDERS: ADMIT Family Medicine; ATTEND Family Medicine
DX: A41.89 Other specified sepsis (principal); C25.9 Malignant neoplasm of pancreas, unspecified; C78.7 Secondary malignant neoplasm of liver and intrahepatic bile duct; K83.09 Other cholangitis; C78.00 Secondary malignant neoplasm of unspecified lung; C77.2 Secondary and unspecified malignant neoplasm of intra-abdominal lymph nodes; J01.00 Acute maxillary sinusitis, unspecified; F17.210 Nicotine dependence, cigarettes, uncomplicated; K21.9 Gastro-esophageal reflux disease without esophagitis; Z97.8 Presence of other specified devices; Z88.0 Allergy status to penicillin
CPT/HCPCS: 36415; 71045; 71046; 74177; 80053; 81000; 82140; 82150; 83605; 83690; 85007; 85025; 85027; 85610; 85730; 87040; 87077; 87088; 87186; 87804; 94760; 96361; 96374; 96375

== ENCOUNTER 2019-04-27 15:41 | Observation (INO) | payer MEDICAID, OTHER ==
[~2019-04-27] VITALS: Ht 165.1 cm; Wt 66.7 kg
[2019-04-27 17:26] LABS: BILIRUBIN,URINE NEGATIVE (NEGATIVE); CLARITY,URINE CLEAR; COLOR,URINE YELLOW; GLUCOSE, URINE (UA) NEGATIVE (NEGATIVE); KETONES,URINE NEGATIVE (NEGATIVE); LEUKOCYTE ESTERASE ,URINE NEGATIVE (NEGATIVE); NITRITE,URINE NEGATIVE (NEGATIVE); PH,URINE 7.5 (5-9); PROTEIN,URINE NEGATIVE (NEGATIVE)
[2019-04-27] MEDS ORDERED: NS IV 1000 ML 1,000 ML IV SCH (17:29)
[2019-04-27 17:30] LABS: BASOPHILS % (AUTO) 0 % (0-10); EOSINOPHILS # (AUTO) 0.1 10^3/uL (0.0-0.3); EOSINOPHILS % (AUTO) 0 % (0-10); HEMATOCRIT 26 % (40-54); HEMOGLOBIN 7.9 G/DL (13.3-17.7); LYMPHOCYTES % (AUTO) 10 % (12-44); MEAN CORPUSCULAR HEMOGLOBIN 26 PG (25-34); MEAN CORPUSCULAR HGB CONC 30 G/DL (32-36); MEAN CORPUSCULAR VOLUME 87 FL (80-99); MEAN PLATELET VOLUME 9.5 FL (7.4-10.4); MONOCYTES # (AUTO) 1.7 X 10^3 (0.0-1.0); MONOCYTES % (AUTO) 9 % (0-12); NEUTROPHILS # (AUTO) 15.7 X 10^3 (1.8-7.8); NEUTROPHILS % (AUTO) 81 % (42-75); PLATELET COUNT 552 10^3/uL (130-400); RED CELL DISTRIBUTION WIDTH 18.3 % (10.0-14.5); WHITE BLOOD COUNT 19.4 10^3/uL (4.3-11.0)
[2019-04-27] MEDS ORDERED: morphine INJ 10 MG/ML 1ML (SYR OR VIAL) IVP STA (17:39)
[2019-04-27 17:42] LABS: BACTERIA,URINE MODERATE /HPF
[2019-04-27 17:43] LABS: AMORPHOUS SEDIMENT,UR LARGE AMOR PHOSPHATE /LPF
[2019-04-27 17:52] LABS: BAND NEUTROPHILS 1 %; HYPOCHROMASIA MODERATE; LYMPHOCYTES % (MANUAL) 4 %; MONOCYTES % (MANUAL) 3 %; NEUTROPHILS % (MANUAL) 92 %; POIKILOCYTOSIS SLIGHT
[2019-04-27 17:53] LABS: MICROCYTOSIS SLIGHT
[2019-04-27 18:07] LABS: ALANINE AMINOTRANSFERASE 28 U/L (0-55); ALBUMIN 3.7 GM/DL (3.2-4.5); ALKALINE PHOSPHATASE 487 U/L (40-136); BILIRUBIN,TOTAL 0.6 MG/DL (0.1-1.0); BUN/CREATININE RATIO 15; CALCIUM 9.6 MG/DL (8.5-10.1); CARBON DIOXIDE 23 MMOL/L (21-32); CHLORIDE 99 MMOL/L (98-107); CREATININE SERUM 0.73 MG/DL (0.60-1.30); GFR ESTIMATED > 60; GLUCOSE 96 MG/DL (70-105); SODIUM 135 MMOL/L (135-145); TOTAL PROTEIN 7.8 GM/DL (6.4-8.2)
[2019-04-27] MEDS ORDERED: PANTOPRAZOLE 40 MG (PROTONIX) VIAL IV ONE (18:30)
[2019-04-27] MEDS ORDERED: NS 100 ML (IVPB) BAG IV ONE (18:45)
[2019-04-27] MEDS ORDERED: IOHEXOL 350 MG/ML 100 ML (OMNIPAQUE 350) VIAL IV ONE (18:45)
[2019-04-27] MEDS ORDERED: HOLD METFORMIN - RECEIVED CONTRAST 20 ML VIAL IV SCH (18:45)
[2019-04-27] MEDS ORDERED: CATHETER FLUSH 10 ML SYR IV PRN (18:45)
--- NOTE | 2019-04-27 19:23 | Diagnostic Imaging Report ---
PROCEDURE: CT abdomen and pelvis with contrast. TECHNIQUE: Multiple contiguous axial images were obtained through the abdomen and pelvis after administration of intravenous contrast. Auto Exposure Controls were utilized during the CT exam to meet ALARA standards for radiation dose reduction. INDICATION: Abdominal pain, cramping, history of pancreatic cancer. COMPARISON: 03/09/2019 FINDINGS: Increasing nodules are seen in both lung bases. No pleural effusion is identified. Worsening liver metastasis is seen. There is increasing pneumobilia primarily in the left hepatic biliary system. Biliary stent is seen in place. The right hepatic system is decompressed. The portal and superior mesenteric vein appear patent. The pancreatic head has an irregular appearance. Otherwise, the enhancement pattern of the pancreas is unremarkable. The spleen, adrenal glands, kidneys, vascular structures and bowel are unremarkable. There is no ascites, free air or abscess. Distal ureters and urinary bladder are normal. There is increasing retroperitoneal lymphadenopathy at the level of the pancreas. No mesenteric lymphadenopathy seen. Osseous structures are age-appropriate. IMPRESSION: 1. Progressive bilateral pulmonary nodules and liver metastasis. 2. Slightly irregular pancreatic head. Definite mass is not seen with certainty on this series. 3. Pneumobilia with stable intrahepatic biliary duct dilatation of the left hepatic system. The right hepatic biliary system is decompressed. Biliary stent is seen in place. 4. Increasing retroperitoneal lymphadenopathy. 5. No bowel obstruction, free air, or free fluid. Dictated by: Dictated on workstation # [id number]
--- NOTE | 2019-04-27 19:39 | ED Abdominal Pain ---
General Chief Complaint: Abdominal/GI Problems Stated Complaint: VOMITING Nursing Triage Note: AMB TO ROOM ABD CRAMPING WTH VOMITNG . PMH OF CA STOPPED CHEMO LAST MONTH DUE TO IT NOT WORKING Sepsis Screen: No Definite Risk History of Present Illness Date Seen by Provider: Apr 27, 2019 Time Seen by Provider: 16:30 Initial Comments 53-year-old male returns for abdominal pain and vomiting, for the last 4 hours. He has pancreatic cancer with metastasis to the liver. He was recently hospitalized in February 2019 for sepsis and had a biliary stent placed at [facility] by Dr. Gutierrez. He denies taking any Zofran today, he is taking morphine orally at home for pain. His oncologist is Dr. barnes and his next follow-up is in one week. Approximately one month ago he decided to discontinue chemotherapy. Timing/Duration: 4-6 Hours Severity/Quality: Moderate Location: Generalized Abdomen Radiation: No Radiation Associated Symptoms: No Back Pain, No Chest Pain, No Diaphoresis, No Fever/Chi lls; Fatigue; No Headache; Heartburn, Nausea/Vomiting; No Rash, No Shortness of Air; Swelling/Mass in Abdomen; No Syncope; Weakness Allergies and Home Medications Allergies Coded Allergies: Penicillins (Verified Allergy, Intermediate, HIVES, 02/01/15) Home Medications Calcium Carbonate 300 Mg Tab.chew, 300 MG PO TID PRN for INDIGESTION, (Reported) Guaifenesin 600 Mg Tab.er.12h, 600 MG PO BID PRN for CONGESTION Prescribed by: AGNES HEARN on 03/08/19 110 Hydrocodone Bit/Acetaminophen 1 Tab Tab, 1 TAB PO Q6H PRN for PAIN-MODERATE (4- 6) Prescribed by: AGNES HEARN on 03/08/19 110 Ibuprofen 200 Mg Tablet, 400 MG PO BID, (Reported) TAKES 2 (200MG) TABLETS Pantoprazole Sodium 40 Mg Tablet.dr, 40 MG PO DAILY, (Reported) Polyethylene Glycol 3350 17 Gm Powd.pack, 17 GM PO DAILY PRN for CONSTIPATION- 1ST LINE Prescribed by: AGNES HEARN on 03/08/19 1104 Promethazine HCl 25 Mg Tablet, 25 MG PO Q6H PRN for NAUSEA/VOMITING-2ND LINE Prescribed by: AGNES HEARN on 03/08/19 1104 Patient Home Medication List Home Medication List Reviewed: Yes Review of Systems Review of Systems Constitutional: no symptoms reported, see HPI Gastrointestinal: See HPI, Abdomen Distended, Abdominal Pain; Denies Diarrhea, Denies Difficulty Swallowing; Nausea, Poor Appetite, Poor Fluid Intake, Vomiting All Other Systems Reviewed Negative Unless Noted: Yes Past Ldfwpcs-Gqgnud-Rlonwb Hx Past Med/Social Hx: Reviewed Nursing Past Med/Soc Hx Patient Social History Alcohol Use: Denies Use Recreational Drug Use: No Drug of Choice: CANNIBUS Smoking Status: Former Smoker Type Used: Cigarettes Former Smoker, Quit: Nov 04, 2018 Recent Foreign Travel: No Contact w/Someone Who Travel: No Recent Infectious Disease Expo: No Recent Hopitalizations: No Immunizations Up To Date Tetanus Booster (TDap): Unknown Seasonal Allergies Seasonal Allergies: No Past Medical History Surgeries: Yes (TUMOR REMOVAL TO FACE, PANCREATIC STENT) Respiratory: No Cardiac: No Neurological: No Genitourinary: No Gastrointestinal: No Gastroesophageal Reflux Musculoskeletal: No Endocrine: No HEENT: No Cancer: Yes Liver, Pancreatic Did You Recieve Any Treatments: Yes What Type of Treatment Did You: Chemotherapy Psychosocial: No Integumentary: No Blood Disorders: No Family Medical History Cancer, Diabetes Physical Exam Vital Signs Vital Signs - First Documented 04/27/19 16:11 Temp 37.0 Pulse 83 Resp 18 B/P (MAP) 135/92 (106) Pulse Ox 99 O2 Delivery Room Air Capillary Refill : Less Than 3 Seconds Height/Weight/BMI Height: 5'6.00" Weight: 165lbs. oz. 74.949097rs; 26.00 BMI Method:Stated General Appearance: WD/WN, mild distress (secondary to pain and nausea) HEENT: PERRL/EOMI, normal ENT inspection, TMs normal, pharynx normal, other (oral mucosa pink and dry) Neck: non-tender, full range of motion, supple, normal inspection Respiratory: chest non-tender, lungs clear, normal breath sounds Cardiovascular: normal peripheral pulses, regular rate, rhythm, no edema Gastrointestinal: normal bowel sounds, distended; No guarding, No rebound; tenderness (generalized); No hernia Back: normal inspection, no CVA tenderness, no vertebral tenderness Neurologic/Psychiatric: no motor/sensory deficits, alert, normal mood/affect, oriented x 3 Skin: warm/dry; No jaundice; pallor; No rash Progress/Results/Core Measures Results/Orders Lab Results Laboratory Tests Test 04/27/19 17:19 04/27/19 17:21 Range/Units Urine Color YELLOW Urine Clarity CLEAR Urine pH 7.5 5-9 Urine Specific [place] 1.015 L 1.016-1.022 Urine Protein NEGATIVE NEGATIVE Urine Glucose (UA) NEGATIVE NEGATIVE Urine Ketones NEGATIVE NEGATIVE Urine Nitrite NEGATIVE NEGATIVE Urine Bilirubin NEGATIVE NEGATIVE Urine Urobilinogen 1.0 < = 1.0 MG/DL Urine Leukocyte Esterase NEGATIVE NEGATIVE Urine RBC (Auto) NEGATIVE NEGATIVE Urine RBC NONE /HPF Urine WBC NONE /HPF Urine Crystals PRESENT H /LPF Urine Amorphous Sediment LARGE JUAN J PHOSPHATE H /LPF Urine Bacteria MODERATE H /HPF Urine Casts NONE /LPF Urine Mucus NEGATIVE /LPF Urine Culture Indicated NO White Blood Count 19.4 H 4.3-11.0 10^3/uL Red Blood Count 3.00 L 4.35-5.85 10^6/uL Hemoglobin 7.9 L 13.3-17.7 G/DL Hematocrit 26 L 40-54 % Mean Corpuscular Volume 87 80-99 FL Mean Corpuscular Hemoglobin 26 25-34 PG Mean Corpuscular Hemoglobin Concent 30 L 32-36 G/DL Red Cell Distribution Width 18.3 H 10.0-14.5 % Platelet Count 552 H 130-400 10^3/uL Mean Platelet Volume 9.5 7.4-10.4 FL Neutrophils (%) (Auto) 81 H 42-75 % Lymphocytes (%) (Auto) 10 L 12-44 % Monocytes (%) (Auto) 9 0-12 % Eosinophils (%) (Auto) 0 0-10 % Basophils (%) (Auto) 0 0-10 % Neutrophils # (Auto) 15.7 H 1.8-7.8 X 10^3 Lymphocytes # (Auto) 2.0 1.0-4.0 X 10^3 Monocytes # (Auto) 1.7 H 0.0-1.0 X 10^3 Eosinophils # (Auto) 0.1 0.0-0.3 10^3/uL Basophils # (Auto) 0.0 0.0-0.1 10^3/uL Neutrophils % (Manual) 92 % Lymphocytes % (Manual) 4 % Monocytes % (Manual) 3 % Band Neutrophils 1 % Hypochromasia MODERATE Poikilocytosis SLIGHT Microcytosis SLIGHT Sodium Level 135 135-145 MMOL/L Potassium Level 4.0 3.6-5.0 MMOL/L Chloride Level 99 98-107 MMOL/L Carbon Dioxide Level 23 21-32 MMOL/L Anion Gap 13 5-14 MMOL/L Blood Urea Nitrogen 11 7-18 MG/DL Creatinine 0.73 0.60-1.30 MG/DL Estimat Glomerular Filtration Rate > 60 BUN/Creatinine Ratio 15 Glucose Level 96 70-105 MG/DL Calcium Level 9.6 8.5-10.1 MG/DL Corrected Calcium 9.8 8.5-10.1 MG/DL Total Bilirubin 0.6 0.1-1.0 MG/DL Aspartate Amino Transf (AST/SGOT) 29 5-34 U/L Alanine Aminotransferase (ALT/SGPT) 28 0-55 U/L Alkaline Phosphatase 487 H 40-136 U/L Total Protein 7.8 6.4-8.2 GM/DL Albumin 3.7 3.2-4.5 GM/DL My Orders Orders - STEPHANIE RIVERA Cbc With Automated Diff (04/27/19 16:11) Comprehensive Metabolic Panel (04/27/19 16:11) Ua Culture If Indicated (04/27/19 16:11) Ed Iv/Invasive Line Start (04/27/19 17:29) Ns Iv 1000 Ml (Sodium Chloride 0.9%) (04/27/19 17:29) Manual Differential (04/27/19 17:21) Morphine Injection (Morphine Injection (04/27/19 17:39) Ct Abdomen/Pelvis W (04/27/19 18:15) Pantoprazole Injection (Protonix Injecti (04/27/19 18:30) Iohexol Injection (Omnipaque 350 Mg/Ml 1 (04/27/19 18:45) Received Contrast (Hold Metformin- Contr (04/27/19 18:45) Sodium Chloride Flush (Catheter Flush Sy (04/27/19 18:45) Ns (Ivpb) (Sodium Chloride 0.9% Ivpb Bag (04/27/19 18:45) Ondansetron Injection (Zofran Injectio (04/27/19 20:00) Blood Culture (04/27/19 19:53) Lactic Acid Analyzer (04/27/19 19:53) Medications Given in ED Current Medications Medications Dose Ordered Sig/Thai Route Start Time Stop Time Status Last Admin Dose Admin Iohexol 100 ml ONCE ONCE IV 04/27/19 18:45 04/27/19 18:46 DC 04/27/19 19:12 87 ML Pantoprazole 40 mg ONCE ONCE IV 04/27/19 18:30 04/27/19 18:31 DC 04/27/19 18:36 40 MG Sodium Chloride 10 ml NEEDED PRN IV 04/27/19 18:45 04/27/19 19:12 10 ML Sodium Chloride 100 ml ONCE ONCE IV 04/27/19 18:45 04/27/19 18:46 DC 04/27/19 19:12 80 ML Vital Signs/I&O 04/27/19 16:11 Temp 37.0 Pulse 83 Resp 18 B/P (MAP) 135/92 (106) Pulse Ox 99 O2 Delivery Room Air Blood Pressure Mean: 106 Progress Progress Note : Time: 16:30 Progress Note Patient seen and evaluated, will obtain labs, normal saline 1 L per IV, and Zofran 4 mg IV for nausea. 1710 patient reports some improvement in nausea that continued pain in the a bdomen will give morphine 4 mg IV. Hgb 7.9, last documented here was 8.1 in Feb 2019. No shortness of air or dyspnea. 1730 patient complains of nausea again, we'll obtain CT of the abdomen with contrast. 1830 CT results reviewed with the patient does appear that is more lymphadenopathy in the abdomen, no fluid in the abdomen and pelvis. Biliary stents appear patent. [address] Kong, agreed to admit, will consult Dr. Osborne, he was notified. No additional orders from either physician. Consult in a.m. for oncology. Long discussion about code status with patient, he wishes to be DNR. He has discussed this with his family. Notified Drs. Osborne and Dilan. 2000 Zofran 8 mg IV for nausea. NS 1 Liter IV. Diagnostic Imaging Diagonstic Imaging: CT Plain Films/CT/US/NM/MRI: abdomen, pelvis Comments [facility] [place], [place] NAME: FREDY THOMSON [facility] REC#: [id number] PT STATUS: REG ER : 1965 PHYSICIAN: STEPHANIE RIVERA ADMIT DATE: 04/27/19/ER Draft Date of Exam:04/27/19 CT ABDOMEN/PELVIS W PROCEDURE: CT abdomen and pelvis with contrast. TECHNIQUE: Multiple contiguous axial images were obtained through the abdomen and pelvis after administration of intravenous contrast. Auto Exposure Controls were utilized during the CT exam to meet ALARA standards for radiation dose reduction. INDICATION: Abdominal pain, cramping, history of pancreatic cancer. COMPARISON: 03/09/2019 FINDINGS: Increasing nodules are seen in both lung bases. No pleural effusion is identified. Worsening liver metastasis is seen. There is increasing pneumobilia primarily in the left hepatic biliary system. Biliary stent is seen in place. The right hepatic system is decompressed. The portal and superior mesenteric vein appear patent. The pancreatic head has an irregular appearance. Otherwise, the enhancement pattern of the pancreas is unremarkable. The spleen, adrenal glands, kidneys, vascular structures and bowel are unremarkable. There is no ascites, free air or abscess. Distal ureters and urinary bladder are normal. There is increasing retroperitoneal lymphadenopathy at the level of the pancreas. No mesenteric lymphadenopathy seen. Osseous structures are age-appropriate. IMPRESSION: 1. Progressive bilateral pulmonary nodules and liver metastasis. 2. Slightly irregular pancreatic head. Definite mass is not seen with certainty on this series. 3. Pneumobilia with stable intrahepatic biliary duct dilatation of the left hepatic system. The right hepatic biliary system is decompressed. Biliary stent is seen in place. 4. Increasing retroperitoneal lymphadenopathy. 5. No bowel obstruction, free air, or free fluid. Dictated on workstation # [id number] Reviewed: Reviewed by Me Departure Impression Primary Impression: Nausea and vomiting Qualified Codes: R11.14 - Bilious vomiting Additional Impressions: Pain in the abdomen Qualified Codes: R10.84 - Generalized abdominal pain Primary pancreatic cancer with metastasis to other site Anemia Qualified Codes: D64.9 - Anemia, unspecified Disposition: ADMITTED INPATIENT Condition: Stable Admissions Decision to Admit Reason: Admit from ER (General) Decision to Admit/Date: Apr 27, 2019 Time/Decision to Admit Time: 19:30 Departure-Patient Inst. Referrals: FABIANO ELLIOTT MD (PCP/Family) Primary Care Physician Copy Copies To 1: RADHA OSBORNE DO; WANDER RUIZ MD; FABIANO ELLIOTT MD, AMY ARNP Apr 27, 2019 19:39
[2019-04-27] MEDS ORDERED: ONDANSETRON 4 MG/2 ML (SDV) Z0FRAN IVP ONE (20:00)
--- NOTE | 2019-04-27 20:50 | NUR ---
FREDY THOMSON admitted to room 422-1, with an admitting diagnosis of abdominal pain, pancreatic cancer with mets liver; nausea/vomiting, on 04/27/19 from ER via BED, accompanied by ER staff. FREDY THOMSON introduced to surroundings, call light, bed controls, phone, TV, temperature control, lights, meal times, smoking policy, visitor policy, side rail policy, bathrooms and showers. Patient Rights given to patient in the handbook. FREDY THOMSON verbalizes understanding that [facility] is not responsible for the loss or damage to any personal effects or valuables that are kept in the patients posession during their hospitalization.
[2019-04-27] MEDS ORDERED: NS IV 1000 ML 1,000 ML ONE (21:01)
[2019-04-27 21:05] VITALS: BP 119/87
[2019-04-27] MEDS: NS IV 1000 ML 1,000 ML IV SCH (21:28)
[2019-04-27] MEDS ORDERED: LORazepam INJ 2 MG/ML (ATIVAN) VIAL IV PRN (21:30)
[2019-04-27] MEDS ORDERED: ACETAMINOPHEN 325 MG TABLET PO PRN (21:30)
[2019-04-27] MEDS: ONDANSETRON 4 MG/2 ML (SDV) Z0FRAN IV PRN (21:45)
[2019-04-27] MEDS: HYDROmorphone 2 MG/ML VIAL (DILAUDID) IV PRN (21:46)
[2019-04-28] VITALS: BP 109/71
[2019-04-28] MEDS: HYDROmorphone 2 MG/ML VIAL (DILAUDID) IV PRN ×4 (01:42→18:18)
[2019-04-28 04:30] VITALS: BP 115/71
[2019-04-28] MEDS: NS IV 1000 ML 1,000 ML IV SCH ×3 (05:15→21:32)
[2019-04-28] MEDS: ONDANSETRON 4 MG/2 ML (SDV) Z0FRAN IV PRN ×3 (05:31→18:18)
[2019-04-28 05:53] LABS: BASOPHILS % (AUTO) 0 % (0-10); EOSINOPHILS # (AUTO) 0.2 10^3/uL (0.0-0.3); EOSINOPHILS % (AUTO) 2 % (0-10); HEMATOCRIT 29 % (40-54); HEMOGLOBIN 8.9 G/DL (13.3-17.7); LYMPHOCYTES # (AUTO) 1.7 X 10^3 (1.0-4.0); LYMPHOCYTES % (AUTO) 16 % (12-44); MEAN CORPUSCULAR HEMOGLOBIN 26 PG (25-34); MEAN CORPUSCULAR HGB CONC 30 G/DL (32-36); MEAN CORPUSCULAR VOLUME 87 FL (80-99); MEAN PLATELET VOLUME 9.3 FL (7.4-10.4); MONOCYTES # (AUTO) 0.9 X 10^3 (0.0-1.0); MONOCYTES % (AUTO) 9 % (0-12); NEUTROPHILS # (AUTO) 8.1 X 10^3 (1.8-7.8); NEUTROPHILS % (AUTO) 74 % (42-75); PLATELET COUNT 401 10^3/uL (130-400); RED CELL DISTRIBUTION WIDTH 18.5 % (10.0-14.5); WHITE BLOOD COUNT 10.9 10^3/uL (4.3-11.0)
[2019-04-28 06:16] LABS: ALANINE AMINOTRANSFERASE 25 U/L (0-55); ALKALINE PHOSPHATASE 389 U/L (40-136); BILIRUBIN,TOTAL 0.6 MG/DL (0.1-1.0); BUN/CREATININE RATIO 11; CALCIUM 8.6 MG/DL (8.5-10.1); CARBON DIOXIDE 22 MMOL/L (21-32); CHLORIDE 104 MMOL/L (98-107); CREATININE SERUM 0.72 MG/DL (0.60-1.30); GFR ESTIMATED > 60; GLUCOSE 109 MG/DL (70-105); POTASSIUM 3.7 MMOL/L (3.6-5.0); SODIUM 137 MMOL/L (135-145); TOTAL PROTEIN 6.7 GM/DL (6.4-8.2)
[2019-04-28 08:00] VITALS: BP 121/68
[2019-04-28] MEDS ORDERED: MORP-33 PO (08:55)
[2019-04-28] MEDS ORDERED: NA P133E2 RC (08:55)
[2019-04-28] MEDS ORDERED: HYDR-3812 PO (08:55)
[2019-04-28] MEDS ORDERED: ONDA8TAB12 PO (08:55)
[2019-04-28] MEDS: ENOXAPARIN 40 MG/0.4 ML (LOVENOX) SYR SC SCH (09:54)
[2019-04-28] MEDS: PANTOPRAZOLE 40 MG (PROTONIX) TAB PO SCH (10:43)
--- NOTE | 2019-04-28 11:08 | History & Physical-Hospitalist ---
History of Present Illness HPI/Chief Complaint Chief Complaint: Abdominal pain with nausea and vomiting HPI: This is a 53 yoWM known history of pancreatic cancer with wide spread metastasis who presented to the ER with nausea vomiting abdominal pain. Dr. Clark was consulted. Did not require an NG tube. Zofran given for nausea supportive care with IV fluids and Dilaudid for pain control we have restarted his home medications. Source: patient Exam Limitations: no limitations Date Seen 04/28/19 Time Seen by a Provider: 10:00 Attending Physician Cyndie Kong Julie A MD Referring Physician Date of Admission Apr 27, 2019 at 20:00 Home Medications & Allergies Home Medications Reviewed patient Home Medication Reconciliation performed by pharmacy medication reconciliations pm technician and/or nursing. Patients Allergies have been reviewed. Allergies Allergies Coded Allergies Penicillins (Verified Allergy, Intermediate, HIVES, 02/01/15) Past Balpcyt-Doqdcy-Uvoddc Hx Past Med/Social Hx: Reviewed Nursing Past Med/Soc Hx, Reviewed and Corrections made Patient Social History Marrital Status: Employed/Student: unemployed Alcohol Use: Denies Use Recreational Drug Use: No Drug of Choice: CANNIBUS Smoking Status: Current Everyday Smoker Former Smoker, Quit: Nov 04, 2018 Type Used: Cigarettes Recent Foreign Travel: No Contact w/other who traveled: No Recent Hopitalizations: No Recent Infectious Disease Expo: No Immunizations Up To Date Tetanus Booster (TDap): Unknown Seasonal Allergies Seasonal Allergies: No Past Medical History Surgeries: Pancreatic Respiratory: COPD Cardiac: High Cholesterol, Hypertension Genitourinary: Kidney Stones Gastrointestinal: Gastroesophageal Reflux Cancer: Liver, Pancreatic Did You Recieve Any Treatments: Yes What Type of Treatment Did You: Chemotherapy Psychosocial: Anxiety History of Blood Disorders: No Family History Colon cancer maternal grandfather paternal grandfaher Diabetes mellitus 19 FATHER G8 BROTHER G8 SISTER FH: lymphoma 19 MOTHER Cancer, Diabetes Review of Systems Constitutional: malaise, other (Fatigue) Gastrointestinal: abdominal pain, nausea, vomiting Physical Exam Physical Exam Vital Signs Vital Signs - First Documented 04/27/19 16:11 Temp 37.0 Pulse 83 Resp 18 B/P (MAP) 135/92 (106) Pulse Ox 99 O2 Delivery Room Air Capillary Refill : Less Than 3 Seconds Height, Weight, BMI Height: 5'6.00" Weight: 165lbs. oz. [id number]; 24.46 BMI Method:Stated General Appearance: No Apparent Distress, Chronically ill Eyes: Right Eye Normal Inspection, Right Eye PERRL HEENT: PERRL/EOMI, TMs Normal, Normal ENT Inspection, Pharynx Normal, Moist Mucous Membranes Neck: Full Range of Motion, Normal Inspection, Non Tender Respiratory: Chest Non Tender, Lungs Clear, Normal Breath Sounds, No Accessory Muscle Use, No Respiratory Distress Cardiovascular: Regular Rate, Rhythm, No Edema, No Gallop, No JVD, No Murmur, Normal Peripheral Pulses Gastrointestinal: Normal Bowel Sounds, No Organomegaly, No Pulsatile Mass, Non Tender, Soft, Other (Abdominal pain LUQ) Back: Normal Inspection, No CVA Tenderness, No Vertebral Tenderness Extremity: Normal Capillary Refill, Normal Inspection, Normal Range of Motion, Non Tender, No Calf Tenderness, No Pedal Edema Neurologic/Psychiatric: Alert, Oriented x3, No Motor/Sensory Deficits, Normal Mood/Affect Skin: Normal Color, Warm/Dry Lymphatic: No Adenopathy Results Results/Procedures Labs Laboratory Tests 04/27/19 17:21 04/28/19 05:34 Patient resulted labs reviewed. Assessment/Plan Admission Diagnosis Assessment: Abdominal pain Pancreatic cancer with mets N/V Plan: Pain management IVF CLD Dr Clark consultation Admission Status: Observation Reason for Inpatient Admission: abdominal pain Assessment and Plan Assessment: Abdominal pain Nausea and vomiting Pancreatic cancer with metastasis Plan: Appreciate Dr. Clark [facility] Pain control Supportive care Diagnosis/Problems Diagnosis/Problems (1) Primary pancreatic cancer with metastasis to other site Status: Acute (2) Nausea and vomiting Status: Acute Qualifiers: Vomiting type: bilious vomiting Qualified Codes: R11.14 - Bilious vomiting (3) Elevated liver enzymes Status: Acute (4) Anemia Status: Acute Qualifiers: Anemia type: unspecified type Qualified Codes: D64.9 - Anemia, unspecified (5) Pain in the abdomen Status: Acute Qualifiers: Abdominal location: generalized Qualified Codes: R10.84 - Generalized abdominal pain Clinical Quality Measures DVT/VTE Risk/Contraindication: Risk Factor Score Per Nursin RFS Level Per Nursing on Admit: 4+=Very High CYNDIE KONG DO Apr 28, 2019 11:08
[2019-04-28] MEDS ORDERED: NON-FORMULARY MEDICATION 1 EA EA (Ondansetron HCl 8 MG) PO PRN (11:15)
[2019-04-28] MEDS ORDERED: NON-FORMULARY MEDICATION 1 EA EA (Calcium Carbonate (Tums) 300 MG) PO PRN (11:15)
[2019-04-28] MEDS ORDERED: FLEET ENEMA ADULT 1 EA BTL RC PRN (11:15)
[2019-04-28] MEDS ORDERED: RX-HYDROCODONE/APAP 5/325 MG #4 TAB PK PO PRN (11:15)
[2019-04-28] MEDS ORDERED: ONDANSETRON 4 MG (ZOFRAN) ORAL DISSOLVE TAB PO PRN (11:30)
[2019-04-28 12:00] VITALS: BP 120/70
[2019-04-28] MEDS: CALCIUM CARBONATE 500 MG (TUMS) TAB.CHEW PO PRN ×2 (13:17→16:43)
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
[2019-04-28] MEDS: HYDROcodone/APAP 5 MG/325 MG (LORTAB) TAB PO PRN (13:55)
[2019-04-28 16:03] VITALS: BP 110/68
--- NOTE | 2019-04-28 16:04 | NUR ---
Krunal Doss is a single male who lives in the [facility]. He currently receives social security disability and has [place] Medicaid but states has to meet $118 spenddown before it activates. Pt drove his truck to the hospital and states can return to his previous location with friends. He is applying for government housing in [place], [place] but his acceptance not yet finalized. Providing supportive services to patient and will follow at our [facility].
[2019-04-28] MEDS: IBUPROFEN TABLET 200 MG TAB PO SCH ×2 (17:06→18:08)
[2019-04-28] MEDS ORDERED: HYDROmorphone 2 MG/ML VIAL (DILAUDID) IV PRN (18:45)
[2019-04-28] MEDS ORDERED: SUCRALFATE 1 GM (CARAFATE) TAB PO PRN (18:45)
--- NOTE | 2019-04-28 18:53 | Consultation ---
History of Present Illness History of Present Illness Patient Consulted On(miguelina/time) 04/28/19 18:43 Date Seen by Provider: Apr 28, 2019 Time Seen by Provider: 18:44 History of Present Illness Mr. Doss is a 53 yo male with metastatic pancreatic cancer who was admitted with intractable abdominal pain, nausea and vomiting. He normally has epigastric pain, presumably from his cancer and takes long acting morphine and short acting opiates with relatively good control of pain. Patient started to have increased difficulties with what he presumed to be acid reflux last weekend. On Wednesday, he at a [employer] hamburger, which he knew was a bad idea since he recently has had difficulty handling greasy foods. This precipitated a prolonged bout of severe acid reflux symptoms, including epigastric burning, bloating and belching. He started to take his PPI two to three times a day but ran out about 3 days ago. Two days ago, he started to vomit and claims he vomited twenty times before he finally decided to go the ED. Allergies and Home Medications Allergies Coded Allergies: Penicillins (Verified Allergy, Intermediate, HIVES, 02/01/15) Home Medications Calcium Carbonate 300 Mg Tab.chew, 300 MG PO TID PRN for INDIGESTION, (Reported) Hydrocodone/Acetaminophen 1 Each Tablet, 1 TAB PO Q6H PRN for PAIN-MODERATE (5- 7), (Reported) Ibuprofen 200 Mg Tablet, 400 MG PO BID, (Reported) TAKES 2 (200MG) TABLETS Morphine Sulfate 15 Mg Tablet.er, 15 MG PO BID, (Reported) Na Phos,M-B/Na Phos,Di-Ba 133 Ml Enema, 133 ML RC UD PRN for CONSTIPATION, (Reported) Ondansetron HCl 8 Mg Tablet, 8 MG PO Q8H PRN for NAUSEA/VOMITING-1ST LINE, (Reported) Pantoprazole Sodium 40 Mg Tablet.dr, 40 MG PO DAILY, (Reported) Patient Home Medication List Home Medication List Reviewed: Yes Past Voylgue-Pqsunu-Bidqux Hx Past Med/Social Hx: Reviewed Nursing Past Med/Soc Hx, Reviewed and Corrections made Patient Social History Alcohol Use: Denies Use Recreational Drug Use: No Drug of Choice: CANNIBUS Smoking Status: Current Everyday Smoker Type Used: Cigarettes Former Smoker, Quit: Nov 04, 2018 Recent Foreign Travel: No Contact w/Someone Who Travel: No Recent Infectious Disease Expo: No Recent Hopitalizations: No Immunizations Up To Date Tetanus Booster (TDap): Unknown Seasonal Allergies Seasonal Allergies: No Past Medical History Surgeries: Yes (TUMOR REMOVAL TO FACE, PANCREATIC STENT) Respiratory: No Cardiac: No Neurological: No Genitourinary: Yes Kidney Stones Gastrointestinal: No Gastroesophageal Reflux Musculoskeletal: No Endocrine: No HEENT: No Cancer: Yes Liver, Pancreatic Did You Recieve Any Treatments: Yes What Type of Treatment Did You: Chemotherapy Psychosocial: Yes Anxiety Integumentary: No Blood Disorders: No Family Medical History Colon cancer maternal grandfather paternal grandfaher Diabetes mellitus 19 FATHER G8 BROTHER G8 SISTER FH: lymphoma 19 MOTHER Cancer, Diabetes Review of Systems-General Constitutional: malaise, weakness EENTM: no symptoms reported Respiratory: no symptoms reported Cardiovascular: no symptoms reported Gastrointestinal: abdominal pain; No hematemesis; heartburn, loss of appetite, nausea, vomiting Genitourinary: no symptoms reported Musculoskeletal: no symptoms reported Skin: no symptoms reported Psychiatric/Neurological: Depressed Physical Exam-General Problems Physical Exam Vital Signs Vital Signs - First Documented 04/27/19 16:11 Temp 37.0 Pulse 83 Resp 18 B/P (MAP) 135/92 (106) Pulse Ox 99 O2 Delivery Room Air Capillary Refill : Less Than 3 Seconds General Appearance: WD/WN, no apparent distress Eyes: Bilateral Eye Normal Inspection, Bilateral Eye EOMI HEENT: normal ENT inspection Neck: non-tender, supple, normal inspection Respiratory: chest non-tender, lungs clear, normal breath sounds, no res piratory distress, no accessory muscle use Cardiovascular: regular rate, rhythm, no edema, no murmur Gastrointestinal: distended, guarding, rebound, tenderness Extremities: normal range of motion, non-tender, normal inspection Neurologic/Psychiatric: no motor/sensory deficits, alert, normal mood/affect, oriented x 3, depressed affect Skin: normal color, warm/dry Assessment/Plan Assessment/Plan Admission Diagnosis/Plan 53 yo male with metastatic pancreatic cancer that progressed during first line chemotherapy is admitted with worsening abdominal pain, nausea, vomiting. Patient claims most of his symptoms are due to acid reflux symptoms but given the extensive nature of his disease, I suspect progression of cancer has some significant contribution. I discussed with patient his plans after hospital discharge since he declines to continue palliative chemotherapy, but he does not have a good idea. I recommended hospice because of his difficulty treating his symptoms at home by himself, but he was not willing to make a decision at this time. I would recommend continuing to titrate pain medications, adding panc reatic enzymes to help with digestion, and maximizing acid reflux therapy by adding an H2 nori and sucralfate. I also d/c'ed NSAIDs from his med list. Dr. Castillo will be covering this weekend. Thank you for allowing me to participate in the care of Mr. Doss. Clinical Quality Measures DVT/VTE Risk/Contraindication: Risk Factor Score Per Nursin RFS Level Per Nursing on Admit: 4+=Very High WANDER RUIZ MD Apr 28, 2019 18:53
--- NOTE | 2019-04-28 19:37 | Consultation - Surgery ---
History of Present Illness History of Present Illness Patient Consulted On(miguelina/time) 04/28/19 19:32 Date Seen by Provider: Apr 28, 2019 Time Seen by Provider: 08:30 History of Present Illness consult requested by Dr. Kong for abdominal pain patient is a 53 year old male with metastatic pancreatic cancer. He has had increasing abdominal pain nausea and emesis last few days. Patient states his pain has gotten better under control and has not had emesis as well. His chronic pain he states he is at 7/10 and currently is 7/10. Burning type pain. He feels his diet may have contributed to his pain worsening. He has a biliary stent. Had leukocytoiss when in the emergency department, but repeat improved. Bilirubin normal. Denies n/v fever sweats chills shortness of breath or chest pain. Ct scan: 1. Progressive bilateral pulmonary nodules and liver metastasis. 2. Slightly irregular pancreatic head. Definite mass is not seen with certainty on this series. 3. Pneumobilia with stable intrahepatic biliary duct dilatation of the left hepatic system. The right hepatic biliary system is decompressed. Biliary stent is seen in place. 4. Increasing retroperitoneal lymphadenopathy. 5. No bowel obstruction, free air, or free fluid. Allergies and Home Medications Allergies Coded Allergies: Penicillins (Verified Allergy, Intermediate, HIVES, 02/01/15) Home Medications Calcium Carbonate 300 Mg Tab.chew, 300 MG PO TID PRN for INDIGESTION, (Reported) Hydrocodone/Acetaminophen 1 Each Tablet, 1 TAB PO Q6H PRN for PAIN-MODERATE (5- 7), (Reported) Ibuprofen 200 Mg Tablet, 400 MG PO BID, (Reported) TAKES 2 (200MG) TABLETS Morphine Sulfate 15 Mg Tablet.er, 15 MG PO BID, (Reported) Na Phos,M-B/Na Phos,Di-Ba 133 Ml Enema, 133 ML RC UD PRN for CONSTIPATION, (Reported) Ondansetron HCl 8 Mg Tablet, 8 MG PO Q8H PRN for NAUSEA/VOMITING-1ST LINE, (Reported) Pantoprazole Sodium 40 Mg Tablet.dr, 40 MG PO DAILY, (Reported) Patient Home Medication List Home Medication List Reviewed: Yes Past Yikkauf-Rpggfl-Salvag Hx Patient Social History Alcohol Use: Denies Use Recreational Drug Use: No Drug of Choice: CANNIBUS Smoking Status: Current Everyday Smoker Former Smoker, Quit: Nov 04, 2018 Type Used: Cigarettes Recent Foreign Travel: No Contact w/Someone Who Travel: No Recent Infectious Disease Expo: No Recent Hopitalizations: No Immunizations Up To Date Tetanus Booster (TDap): Unknown Seasonal Allergies Seasonal Allergies: No Surgeries History of Surgeries: Yes (TUMOR REMOVAL TO FACE, PANCREATIC STENT) Respiratory History of Respiratory Disorde: No Cardiovascular History of Cardiac Disorders: No Neurological History of Neurological Disord: No Genitourinary History of Genitourinary Disor: Yes Genitourinary Disorders: Kidney Stones Gastrointestinal History of Gastrointestinal Di: No Gastrointestinal Disorders: Gastroesophageal Reflux Musculoskeletal History of Musculoskeletal Dis: No Endocrine History of Endocrine Disorders: No HEENT History of HEENT Disorders: No Cancer History of Cancer: Yes Cancer: Liver, Pancreatic Psychosocial History of Psychiatric Problem: Yes Behavioral Health Disorders: Anxiety Integumentary History of Skin or Integumenta: No Blood Transfusions History of Blood Disorders: No Reviewed Nursing Assessment Reviewed/Agree w Nursing PMH: Yes Family Medical History Significant Family History: Cancer, Diabetes Family Medial History: Colon cancer maternal grandfather paternal grandfaher Diabetes mellitus 19 FATHER G8 BROTHER G8 SISTER FH: lymphoma 19 MOTHER Review of Systems-General EENTM: no symptoms reported Respiratory: no symptoms reported Cardiovascular: no symptoms reported Gastrointestinal: see HPI Genitourinary: no symptoms reported Musculoskeletal: no symptoms reported Skin: no symptoms reported Psychiatric/Neurological: No Symptoms Reported Physical Exam-General Problems Physical Exam Vital Signs Vital Signs - First Documented 04/27/19 16:11 Temp 37.0 Pulse 83 Resp 18 B/P (MAP) 135/92 (106) Pulse Ox 99 O2 Delivery Room Air Capillary Refill : Less Than 3 Seconds General Appearance: no apparent distress HEENT: PERRL/EOMI, scleral icterus (R), scleral icterus (L) Neck: full range of motion, supple Respiratory: chest non-tender, no respiratory distress, no accessory muscle use Cardiovascular: regular rate, rhythm Gastrointestinal: soft, tenderness (ruq/epigastric) Rectal: deferred Back: normal inspection Extremities: normal range of motion, non-tender, normal inspection Neurologic/Psychiatric: cooker meal II-XII nml as tested, no motor/sensory deficits, alert, normal mood/affect, oriented x 3 Skin: warm/dry Lymphatic: no adenopathy Data Review Labs Laboratory Tests 04/27/19 20:20: Lactic Acid Level 0.67 04/28/19 05:34: White Blood Count 10.9, Red Blood Count 3.40L, Hemoglobin 8.9L, Hematocrit 29L, Mean Corpuscular Volume 87, Mean Corpuscular Hemoglobin 26, Mean Corpuscular Hemoglobin Concent 30L, Red Cell Distribution Width 18.5H, Platelet Count 401H, Mean Platelet Volume 9.3, Neutrophils (%) (Auto) 74, Lymphocytes (%) (Auto) 16, Monocytes (%) (Auto) 9, Eosinophils (%) (Auto) 2, Basophils (%) (Auto) 0, Neutrophils # (Auto) 8.1H, Lymphocytes # (Auto) 1.7, Monocytes # (Auto) 0.9, Eosinophils # (Auto) 0.2, Basophils # (Auto) 0.0, Sodium Level 137, Potassium Level 3.7, Chloride Level 104, Carbon Dioxide Level 22, Anion Gap 11, Blood Urea Nitrogen 8, Creatinine 0.72, Estimat Glomerular Filtration Rate > 60, BUN/Creatinine Ratio 11, Glucose Level 109H, Calcium Level 8.6, Corrected Calcium 9.4, Total Bilirubin 0.6, Aspartate Amino Transf (AST/SGOT) 28, Alanine Aminotransferase (ALT/SGPT) 25, Alkaline Phosphatase 389H, Total Protein 6.7, Albumin 3.0L Microbiology 04/27/19 Blood Culture - Preliminary, Resulted No growth Assessment/Plan Assessment/Plan Assessment/Plan Metastatic pancreatic cancer RUQ/Epigastric abdominal pain Nausea and vomiting Patient symptoms have improved some over night. His pain is likely from progression of his metastatic pancreatic cancer. The biliary stent is in position and I do not believe it is obstructed with normal bilirubin at this time, If bilirubin increases would need ERCP to re- evaluate. Symptomatic management No surgical intervention at this time. Will sign off, call if needed. Clinical Quality Measures DVT/VTE Risk/Contraindication: Risk Factor Score Per Nursin RFS Level Per Nursing on Admit: 4+=Very High RADHA OSBORNE DO Apr 28, 2019 19:37
[2019-04-28 20:00] VITALS: BP 120/76
[2019-04-28] MEDS: FAMOTIDINE 20 MG (PEPCID) TABLET PO SCH (21:32)
[2019-04-28] MEDS: morphine ER 15 MG (MS CONTIN) TAB PO SCH (21:32)
[2019-04-29] VITALS: BP 111/69
[2019-04-29 04:15] VITALS: BP 113/75
[2019-04-29] MEDS: NS IV 1000 ML 1,000 ML IV SCH (05:42)
[2019-04-29] MEDS: HYDROcodone/APAP 5 MG/325 MG (LORTAB) TAB PO PRN ×2 (05:45→09:26)
[2019-04-29] MEDS: LIPASE/AMYLASE/PROTEASE (PANCRELIPASE) 5,000 UNITS CAP PO SCH ×2 (05:45→13:53)
[2019-04-29 05:52] LABS: BASOPHILS % (AUTO) 0 % (0-10); EOSINOPHILS # (AUTO) 0.2 10^3/uL (0.0-0.3); EOSINOPHILS % (AUTO) 2 % (0-10); HEMATOCRIT 30 % (40-54); HEMOGLOBIN 8.8 G/DL (13.3-17.7); LYMPHOCYTES # (AUTO) 1.4 X 10^3 (1.0-4.0); LYMPHOCYTES % (AUTO) 13 % (12-44); MEAN CORPUSCULAR HEMOGLOBIN 26 PG (25-34); MEAN CORPUSCULAR HGB CONC 30 G/DL (32-36); MEAN CORPUSCULAR VOLUME 87 FL (80-99); MEAN PLATELET VOLUME 9.7 FL (7.4-10.4); MONOCYTES % (AUTO) 10 % (0-12); NEUTROPHILS % (AUTO) 75 % (42-75); PLATELET COUNT 390 10^3/uL (130-400); RED CELL DISTRIBUTION WIDTH 18.3 % (10.0-14.5); WHITE BLOOD COUNT 10.6 10^3/uL (4.3-11.0)
[2019-04-29 06:16] LABS: ALANINE AMINOTRANSFERASE 25 U/L (0-55); ALBUMIN 3.1 GM/DL (3.2-4.5); ALKALINE PHOSPHATASE 370 U/L (40-136); BILIRUBIN,TOTAL 0.6 MG/DL (0.1-1.0); BUN/CREATININE RATIO 7; CALCIUM 8.6 MG/DL (8.5-10.1); CARBON DIOXIDE 20 MMOL/L (21-32); CHLORIDE 105 MMOL/L (98-107); CREATININE SERUM 0.69 MG/DL (0.60-1.30); GFR ESTIMATED > 60; GLUCOSE 87 MG/DL (70-105); POTASSIUM 3.7 MMOL/L (3.6-5.0); SODIUM 135 MMOL/L (135-145); TOTAL PROTEIN 6.6 GM/DL (6.4-8.2)
[2019-04-29 08:00] VITALS: BP 118/77
[2019-04-29] MEDS ORDERED: PANTOPRAZOLE 40 MG (PROTONIX) TAB PO SCH (09:00)
[2019-04-29] MEDS: ENOXAPARIN 40 MG/0.4 ML (LOVENOX) SYR SC SCH (09:17)
[2019-04-29] MEDS: FAMOTIDINE 20 MG (PEPCID) TABLET PO SCH (09:18)
[2019-04-29] MEDS: morphine ER 15 MG (MS CONTIN) TAB PO SCH ×2 (09:18→09:30)
[2019-04-29] MEDS: PANTOPRAZOLE 40 MG (PROTONIX) TAB PO SCH (09:18)
[2019-04-29 12:00] VITALS: BP 122/64
[2019-04-29] MEDS ORDERED: HYDR-3812 PO (12:28)
[2019-04-29] MEDS ORDERED: PANT40TA3 PO (12:28)
[2019-04-29] MEDS ORDERED: FAMO20TA5 PO (12:28)
[2019-04-29] MEDS ORDERED: SUCR1TAB PO (12:28)
[2019-04-29] MEDS ORDERED: LIPA1CAP2 PO (12:28)
--- NOTE | 2019-04-29 12:29 | Discharge Summary ---
Discharge Summary Hospital Course Was the Problem List Reviewed?: Yes Problems/Dx: (1) Primary pancreatic cancer with metastasis to other site Status: Acute (2) Nausea and vomiting Status: Acute Qualifiers: Qualified Codes: R11.14 - Bilious vomiting (3) Elevated liver enzymes Status: Acute (4) Anemia Status: Acute Qualifiers: Qualified Codes: D64.9 - Anemia, unspecified (5) Pain in the abdomen Status: Acute Qualifiers: Qualified Codes: R10.84 - Generalized abdominal pain Hospital Course Date of Admission: Apr 27, 2019 at 20:00 Admission Diagnosis : Family Physician/Provider: Suzanne Noonan MD Date of Discharge: 04/29/19 Discharge Diagnosis: Abdominal pain, refractory N/V, pancreatic cancer with mets Hospital Course: Patient admitted for abdominal pain and N/V placed on NPO status and IVF and pain meds and consulted Dr Clark. Patient improved rapidly along with GERD meds ordered by Dr Clark and patient was ready for DC after tolerating diet and having BM's. Labs and Pending Lab Test: Laboratory Tests 04/29/19 05:42: White Blood Count 10.6, Red Blood Count 3.43L, Hemoglobin 8.8L, Hematocrit 30L, Mean Corpuscular Volume 87, Mean Corpuscular Hemoglobin 26, Mean Corpuscular Hemoglobin Concent 30L, Red Cell Distribution Width 18.3H, Platelet Count 390, Mean Platelet Volume 9.7, Neutrophils (%) (Auto) 75, Lymphocytes (%) (Auto) 13, Monocytes (%) (Auto) 10, Eosinophils (%) (Auto) 2, Basophils (%) (Auto) 0, Neutrophils # (Auto) 8.0H, Lymphocytes # (Auto) 1.4, Monocytes # (Auto) 1.0, Eosinophils # (Auto) 0.2, Basophils # (Auto) 0.0, Sodium Level 135, Potassium Level 3.7, Chloride Level 105, Carbon Dioxide Level 20L, Anion Gap 10, Blood Urea Nitrogen 5L, Creatinine 0.69, Estimat Glomerular Filtration Rate > 60, BUN/Creatinine Ratio 7, Glucose Level 87, Calcium Level 8.6, Corrected Calcium 9.3, Total Bilirubin 0.6, Aspartate Amino Transf (AST/SGOT) 31, Alanine Aminotransferase (ALT/SGPT) 25, Alkaline Phosphatase 370H, Total Protein 6.6, Albumin 3.1L Microbiology 04/27/19 Blood Culture - Preliminary, Resulted No growth Home Meds Active Reported Enema (Na Phos,M-B/Na Phos,Di-Ba) 133 Ml Enema 133 Ml RC UD PRN Ondansetron HCl 8 Mg Tablet 8 Mg PO Q8H PRN Hydrocodone-Acetamin 5-325 mg (Hydrocodone/Acetaminophen) 1 Each Tablet 1 Tab PO Q6H PRN Morphine Sulfate ER (Morphine Sulfate) 15 Mg Tablet.er 15 Mg PO BID Tums (Calcium Carbonate) 300 Mg Tab.chew 300 Mg PO TID PRN Advil (Ibuprofen) 200 Mg Tablet 400 Mg PO BID TAKES 2 (200MG) TABLETS Pantoprazole Sodium 40 Mg Tablet.dr 40 Mg PO DAILY Assessment/Pt Instructions [facility] 1 week Discharge Planning: <30 minutes discharge planning Discharge Instructions Discharge Diet: No Restrictions Activity as Tolerated: Yes Pneumonia Vaccine Order Indica: Yes Discharge Physical Examination Vital Signs Vital Signs Date Time Temp Pulse Resp B/P (MAP) Pulse Ox O2 Delivery O2 Flow Rate FiO2 04/29/19 12:00 37.1 60 20 122/64 (83) 100 Room Air General Appearance: No Apparent Distress, WD/WN, Chronically ill Respiratory: Lungs Clear Cardiovascular: Regular Rate, Rhythm Neurologic/Psychiatric: Alert, Oriented x3, No Motor/Sensory Deficits, Normal Mood/Affect Allergies: Coded Allergies: Penicillins (Verified Allergy, Intermediate, HIVES, 02/01/15) Discharge Summary Date of Admission Apr 27, 2019 at 20:00 Date of Discharge Discharge Date: Apr 29, 2019 Admission Diagnosis Assessment: Abdominal pain Pancreatic cancer with mets N/V Plan: Pain management IVF CLD Dr Clark consultation Discharge Diagnosis Assessment: Abdominal pain Nausea and vomiting Pancreatic cancer with metastasis Plan: Appreciate Dr. Clark Home meds Pain control Supportive care (1) Primary pancreatic cancer with metastasis to other site Status: Acute (2) Nausea and vomiting Status: Acute Qualifiers: Qualified Codes: R11.14 - Bilious vomiting (3) Elevated liver enzymes Status: Acute (4) Anemia Status: Acute Qualifiers: Qualified Codes: D64.9 - Anemia, unspecified (5) Pain in the abdomen Status: Acute Qualifiers: Qualified Codes: R10.84 - Generalized abdominal pain Clinical Quality Measures DVT/VTE Risk/Contraindication: Risk Factor Score Per Nursin RFS Level Per Nursing on Admit: 4+=Very High AARON ZHOU DO Apr 29, 2019 12:29
--- NOTE | 2019-04-29 13:37 | NUR ---
Pt tolerated lunch without difficulty, will dc pt home per order.
--- NOTE | 2019-04-29 14:14 | NUR ---
L chest port deaccessed without difficulty, catheter intact. Large band aid applied
[2019-04-29 14:17] VITALS: BP 122/64
--- NOTE | 2019-04-29 14:25 | NUR ---
FREDY THOMSON demonstrates understanding of discharge instructions and accurately returns instructions upon questioning. Prescription for pain medication given to pt. Copy of Post-Discharge Instructions and Medication Discharge Instructions given to pt. FREDY THOMSON is able to manage continuing needs after discharge. Patients belongings returned to pt. Skin dry and intact; no breakdown noted. Patient discharged from 422-1 on at . FREDY THOMSON left floor ambulating, accompanied by staff.
--- NOTE | 2019-04-29 15:19 | NUR ---
Pt returned to unable to fill prescriptions because of insurance purposes and insufficient funds. House/Lead and pharmacy were consulted. pharmacy are unable to fill pt's scripts at this time. Pt left and said he would try to borrow money or come up with away to pay for scripts. Pt stated that he would be able to fill scripts Wednesday when he gets paid.
== END 2019-04-29 14:25 | disposition home or self-care (01) ==
LOC: EDUNIT# 15:41 → ER 15:42 → 4TH 20:00
PROVIDERS: ADMIT Internal Medicine; ATTEND Internal Medicine
DX: R11.14 Bilious vomiting (principal); R10.84 Generalized abdominal pain; K21.9 Gastro-esophageal reflux disease without esophagitis; D64.9 Anemia, unspecified; C78.7 Secondary malignant neoplasm of liver and intrahepatic bile duct; E78.00 Pure hypercholesterolemia, unspecified; I10 Essential (primary) hypertension; C80.1 Malignant (primary) neoplasm, unspecified; F41.9 Anxiety disorder, unspecified; Z88.0 Allergy status to penicillin; Z92.21 Personal history of antineoplastic chemotherapy; Z79.891 Long term (current) use of opiate analgesic; Z79.899 Other long term (current) drug therapy; Z87.891 Personal history of nicotine dependence; Z85.07 Personal history of malignant neoplasm of pancreas; Z83.3 Family history of diabetes mellitus; Z80.7 Family history of other malignant neoplasms of lymphoid, hematopoietic and related tissues
CPT/HCPCS: 36415; 74177; 80053; 81000; 83605; 85007; 85025; 85027; 87040; 96361; 96374; 96375; G0378

== ENCOUNTER 2019-05-05 10:09 | Outpatient (RCR) | payer MEDICAID ==
[~2019-05-05 10:09] MED LIST changes: +FAMO20TA5 PO; +LIPA1CAP2 PO; +MORP-68 PO; +NA P133E2 RC; +ONDA8TAB15 PO; +SUCR1TAB PO; -TAMS0.4C98 PO; +TMSL.4C PO
[2019-05-05 10:28] LABS: BASOPHILS % (AUTO) 0 % (0-10); EOSINOPHILS # (AUTO) 0.2 10^3/uL (0.0-0.3); EOSINOPHILS % (AUTO) 2 % (0-10); HEMATOCRIT 35 % (40-54); HEMOGLOBIN 10.4 G/DL (13.3-17.7); LYMPHOCYTES # (AUTO) 1.9 X 10^3 (1.0-4.0); LYMPHOCYTES % (AUTO) 13 % (12-44); MEAN CORPUSCULAR HEMOGLOBIN 25 PG (25-34); MEAN CORPUSCULAR HGB CONC 30 G/DL (32-36); MEAN CORPUSCULAR VOLUME 85 FL (80-99); MEAN PLATELET VOLUME 9.5 FL (7.4-10.4); MONOCYTES # (AUTO) 0.9 X 10^3 (0.0-1.0); MONOCYTES % (AUTO) 6 % (0-12); NEUTROPHILS # (AUTO) 11.8 X 10^3 (1.8-7.8); NEUTROPHILS % (AUTO) 80 % (42-75); PLATELET COUNT 585 10^3/uL (130-400); RED CELL DISTRIBUTION WIDTH 18.4 % (10.0-14.5); WHITE BLOOD COUNT 14.8 10^3/uL (4.3-11.0)
[2019-05-05 10:50] LABS: ALANINE AMINOTRANSFERASE 41 U/L (0-55); ALBUMIN 3.6 GM/DL (3.2-4.5); ALKALINE PHOSPHATASE 508 U/L (40-136); BILIRUBIN,TOTAL 0.5 MG/DL (0.1-1.0); BUN/CREATININE RATIO 12; CALCIUM 9.5 MG/DL (8.5-10.1); CARBON DIOXIDE 22 MMOL/L (21-32); CHLORIDE 99 MMOL/L (98-107); CREATININE SERUM 0.75 MG/DL (0.60-1.30); GFR ESTIMATED > 60; GLUCOSE 129 MG/DL (70-105); SODIUM 133 MMOL/L (135-145); TOTAL PROTEIN 8.2 GM/DL (6.4-8.2)
== END 2019-07-05 | disposition home or self-care (01) ==
LOC: ONC 10:09
PROVIDERS: ATTEND Internal Medicine Hematology & Oncology
DX: Z51.11 Encounter for antineoplastic chemotherapy (principal); C25.0 Malignant neoplasm of head of pancreas; C78.7 Secondary malignant neoplasm of liver and intrahepatic bile duct; Z80.0 Family history of malignant neoplasm of digestive organs; Z98.890 Other specified postprocedural states; Z79.899 Other long term (current) drug therapy
CPT/HCPCS: 36591; 80053; 85025; 99213